=== PATIENT | female | born 2000 | race Caucasian/White ===

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

== ENCOUNTER 2020-08-26 19:49 | Emergency (ER) | payer OTHER, SELFPAY ==
--- OUTSIDE RECORDS SUMMARY | 2020-08-26 19:54 | XMS REPORT | Continuity of Care Document ---
:2000 Author Organization [facility] t Address [address] [place] [address] Dr. Sanchez [address] [place] [id number] Care Team Providers Name Role Phone Unavailable Unavailable Unavailable Problems This patient has no known problems. Allergies, Adverse Reactions, Alerts This patient has no known allergies or adverse reactions. Medications This patient has no known medications. Procedures This patient has no known procedures. Results This patient has no known results.
--- NOTE | 2020-08-26 20:32 | EDPHYS ---
Physician Documentation [facility] Name: Jessica North Age: 20 yrs Sex: Female : 2000 Arrival Date: 08/26/2020 Time: 20:07 Bed 19 Private MD: ED Physician Wilner Moeller HPI: 08/26 20:17 This 20 yrs old Female presents to ER via Unassigned with complaints of rn Vomiting. 20:17 This 20 yrs old Female presents to ER via Unassigned with complaints of rn Vomiting, chest pain. 20:17 The patient presents to the emergency department with nausea, vomiting. Onset: The rn symptoms/episode began/occurred 2 day(s) ago. Possible causes: unknown. The symptoms are aggravated by food , The symptoms are alleviated by nothing. Associated signs and symptoms: Pertinent negatives: abdominal pain, fever, GI bleeding. Severity of symptoms: At their worst the symptoms were moderate in the emergency department the symptoms have improved. The patient has not experienced similar symptoms in the past. The patient has not recently seen a physician. Reports nausea and vomited 1 time 2 days ago, began with upper abd pain after eating [employer], no longer abd pain or vomiting, now has burning and tightness in chest. No fever, NO trauma. No cough or sob. No known heart or lung problems. + hx of GERD, doesn't take daily medication. . Historical: - Allergies: 20:21 No Known Allergies; ak2 - Immunization history:: Adult Immunizations up to date. - Family history:: not pertinent. - Social history:: Smoking status: unknown. - Hospitalizations: : No recent hospitalization is reported. ROS: 20:17 Constitutional: Negative for fever, chills, and weight loss, Eyes: Negative for injury, rn pain, redness, and discharge, Neck: Negative for injury, pain, and swelling, Cardiovascular: Negative for palpitations, and edema, Respiratory: Negative for shortness of breath, cough, wheezing, and pleuritic chest pain, Abdomen/GI: Negative for abdominal pain, diarrhea, and constipation, Back: Negative for injury and pain, MS/Extremity: Negative for injury and deformity, Skin: Negative for injury, rash, and discoloration, Neuro: Negative for headache, weakness, numbness, tingling, and seizure. Exam: 20:17 Constitutional: This is a well developed, well nourished patient who is awake, alert, rn and in no acute distress. Head/Face: Normocephalic, atraumatic. Eyes: Periorbital areas with no swelling, redness, or edema. Cardiovascular: Regular rate and rhythm. No pulse deficits. Respiratory: No increased work of breathing, no retractions or nasal flaring. Abdomen/GI: soft, non-tender, neg valencia Skin: Warm, dry MS/ Extremity: Pulses equal, no cyanosis. Neuro: Awake and alert, GCS 15 Vital Signs: 20:18 BP 117 / 93; Pulse 93; Resp 18; Temp 98.3; Pulse Ox 100% ; Weight 68.04 kg; Height 5 ak2 ft. 7 in. (170.18 cm); 20:18 Body Mass Index 23.49 (68.04 kg, 170.18 cm) ak2 MDM: 20:09 Patient medically screened. rn 20:29 Differential diagnosis: gastritis, esophagitis, GERD. Data reviewed: vital signs, rn nurses notes, and as a result, I will discharge patient. Counseling: I had a detailed discussion with the patient and/or guardian regarding: the historical points, exam findings, and any diagnostic results supporting the discharge/admit diagnosis, the need for outpatient follow up, to return to the emergency department if symptoms worsen or persist or if there are any questions or concerns that arise at home. Medication response: GI Cocktail partially relieved the patient's pain. Response to treatment: the patient's symptoms have markedly improved after treatment, and as a result, I will discharge patient. Special discussion: I discussed with the patient/guardian in detail that at this point there is no indication for admission to the hospital. It is understood, however, that if the symptoms persist or worsen the patient needs to return immediately for re-evaluation. Based on the history and exam findings, there is no indication for further emergent testing or inpatient evaluation. I discussed with the patient/guardian the need to see the lead advisor for further evaluation of the symptoms. ED course: Recommend OTC antacids and maalox prn, if worsens, GI f/u or return here. Marked improvement with GI cocktail, normal vitals, and no abd tenderness on exam. Most likely gastritis/esophagitis. . Administered Medications: 20:18 Drug: GI Cocktail without - (Maalox Suspension 30 ml, Lidocaine Liquid 2 % 15 ak2 ml) Route: PO; Disposition Summary: 08/26/20 20:31 Discharge Ordered Location: Home rn Problem: new rn Symptoms: have improved rn Condition: Stable rn Diagnosis - Gastro-esophageal reflux disease with esophagitis rn Followup: rn - With: Private Physician - When: As needed - Reason: Recheck today's complaints, Re-evaluation by your physician Discharge Instructions: - Discharge Summary Sheet rn - Food Choices for Gastroesophageal Reflux Disease, Adult rn - Esophagitis rn - Gastroesophageal Reflux Disease, Adult rn Forms: - Medication Reconciliation Form rn - Thank You Letter rn - Antibiotic furnace operator - Prescription Opioid Use rn Signatures: Wilner Moeller MD MD rn Yaya Mahoney ak2
--- NOTE | 2020-08-26 20:32 | ER ---
Nurse's Notes [facility] Name: Jessica North Age: 20 yrs Sex: Female : 2000 Arrival Date: 08/26/2020 Time: 20:07 Bed 19 Private MD: Diagnosis: Gastro-esophageal reflux disease with esophagitis Presentation: 08/26 20:18 Chief complaint: Patient states: epigastric pain x2 days. Coronavirus screen: Client ak2 denies travel out of the [place] in the last 14 days. At this time, the client does not indicate any symptoms associated with coronavirus-19. Ebola Screen: Patient negative for fever greater than or equal to 101.5 degrees Fahrenheit, and additional compatible Ebola Virus Disease symptoms Patient denies exposure to infectious person. Patient denies travel to an Ebola-affected area in the 21 days before illness onset. No symptoms or risks identified at this time. Initial Sepsis Screen: Does the patient meet any 2 criteria? No. Patient's initial sepsis screen is negative. Does the patient have a suspected source of infection? No. Patient's initial sepsis screen is negative. Risk Assessment: Do you want to hurt yourself or someone else? Patient reports no desire to harm self or others. Onset of symptoms was August 24, 2020. 20:18 Method Of Arrival: Ambulatory ak2 20:18 Acuity: DANYEL 3 ak2 Triage Assessment: 20:21 General: Appears in no apparent distress. Behavior is calm, cooperative. Pain: ak2 Complains of pain in chest and abdomen. GI: Reports upper abdominal pain, epigastric pain. Historical: - Allergies: 20:21 No Known Allergies; ak2 - Immunization history:: Adult Immunizations up to date. - Family history:: not pertinent. - Social history:: Smoking status: unknown. - Hospitalizations: : No recent hospitalization is reported. Screenin:21 Abuse screen: Denies threats or abuse. Denies injuries from another. Nutritional ak2 screening: No deficits noted. Tuberculosis screening: No symptoms or risk factors identified. Fall Risk None identified. Assessment: 20:21 General: Appears in no apparent distress. GI: Abdomen is non-distended. ak2 Vital Signs: 20:18 BP 117 / 93; Pulse 93; Resp 18; Temp 98.3; Pulse Ox 100% ; Weight 68.04 kg; Height 5 ak2 ft. 7 in. (170.18 cm); 20:18 Body Mass Index 23.49 (68.04 kg, 170.18 cm) ak2 ED Course: 20:07 Patient arrived in ED. ag3 20:09 Wilner Moeller MD is Attending Physician. rn 20:18 Yaya Mahoney is Primary Nurse. ak2 20:21 Triage completed. ak2 20:21 Arm band placed on. ak2 20:21 Patient has correct armband on for positive identification. ak2 20:21 No provider procedures requiring assistance completed. Patient did not have IV access ak2 during this emergency room visit. Administered Medications: 20:18 Drug: GI Cocktail without - (Maalox Suspension 30 ml, Lidocaine Liquid 2 % 15 ak2 ml) Route: PO; Outcome: 20:31 Discharge ordered by . rn 20:37 Discharged to home ambulatory. ak2 20:37 Condition: good 20:37 Discharge instructions given to patient. 20:38 Patient left the ED. ak2 Signatures: Wilner Moeller MD MD rn Gomez, Alice ag3 Yaya Mahoney ak2
[2020-08-26] MEDS ORDERED: MAGNES/ALUMIN/SIMET 30ML UCUP ONE (20:37)
[2020-08-26] MEDS ORDERED: LIDOCAINE VISCOUS 2% SOLN 15 ML UDC ONE (20:37)
[2020-08-26 21:28] VITALS: BP 117/93; TEMP 98.3; O2SAT 100
== END 2020-08-26 20:38 | disposition home or self-care (01) ==
LOC: ER 19:49
DX: K21.00 Gastro-esophageal reflux disease with esophagitis, without bleeding (principal)
CPT/HCPCS: 99283

== ENCOUNTER 2021-09-06 01:57 | Emergency (ER) | payer SELFPAY ==
[2021-09-06 02:29] LABS: Urine Blood 2+ (Negative); Urine Glucose Negative (Negative); Urine Protein Negative (Negative)
[2021-09-06 03:23] LABS: Absolute Lymphocytes (CBC) 3.5 K/uL (0.7-4.9); Hematocrit 37.9 % (36.0-45.0); Lymphocytes % 27.7 % (15.3-44.8); MCV 83.9 fL (80-100); RBC Red Blood Cell Count 4.51 M/uL (3.86-4.86)
[2021-09-06 03:27] LABS: Albumin 4.3 g/dL (3.4-5.0); Bilirubin Total 0.3 mg/dL (0.2-1.0); Potassium 3.4 mmol/L (3.5-5.1); Protein, Total 7.6 g/dL (6.4-8.2)
[2021-09-06] MEDS ORDERED: ONDANSETRON 4 MG/2 ML VIAL ONE (03:32)
[2021-09-06] MEDS ORDERED: MORPHINE 2 MG/ML SYR ONE (03:32)
[2021-09-06] MEDS ORDERED: NA CHLORIDE 0.9% 1,000 ML ONE (03:32)
--- NOTE | 2021-09-06 05:00 | EDPHYS ---
Physician Documentation [facility] Name: Jessica North Age: 21 yrs Sex: Female : 2000 Arrival Date: 09/06/2021 Time: 02:00 Bed 26 Private MD: ED Physician Baldo Deleon HPI: 09/06 02:10 This 21 yrs old Female presents to ER via Ambulatory with complaints of Abdominal Pain. mh7 02:10 The patient presents with abdominal pain in the lower abdomen. Onset: The mh7 symptoms/episode began/occurred last night, at 21:00. The symptoms do not radiate. Associated signs and symptoms: Pertinent negatives: nausea, vomiting, and diarrhea, blood in stools, chest pain, constipation, diarrhea, dysuria, fever, headache, hematuria, nausea, palpitations, shortness of breath, vaginal discharge, vomiting, vomiting blood. The symptoms are described as intermittent, vague, waxing/waning. Modifying factors: The symptoms are alleviated by nothing, the symptoms are aggravated by nothing. Severity of pain: At its worst the pain was moderate last night, in the emergency department the pain has improved moderately. 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 - Social history:: Smoking status: Patient denies any tobacco usage or history of. Patient uses street drugs, marijuana. ROS: 02:10 Constitutional: Negative for fever, chills, and weight loss, Eyes: Negative for injury, mh7 pain, redness, and discharge, ENT: Negative for injury, pain, and discharge, Neck: Negative for injury, pain, and swelling, Cardiovascular: Negative for chest pain, palpitations, and edema, Respiratory: Negative for shortness of breath, cough, wheezing, and pleuritic chest pain, Back: Negative for injury and pain, : Negative for injury, bleeding, discharge, and swelling, MS/Extremity: Negative for injury and deformity, Skin: Negative for injury, rash, and discoloration, Neuro: Negative for headache, weakness, numbness, tingling, and seizure, Psych: Negative for depression, anxiety, suicide ideation, homicidal ideation, and hallucinations, Allergy/Immunology: Negative for hives, rash, and allergies, Endocrine: Negative for neck swelling, polydipsia, polyuria, polyphagia, and marked weight changes, Hematologic/Lymphatic: Negative for swollen nodes, abnormal bleeding, and unusual bruising. Exam: 02:10 Constitutional: This is a well developed, well nourished patient who is awake, alert, mh7 and in no acute distress. Head/Face: Normocephalic, atraumatic. Eyes: Pupils equal round and reactive to light, extra-ocular motions intact. Lids and lashes normal. Conjunctiva and sclera are non-icteric and not injected. Cornea within normal limits. Periorbital areas with no swelling, redness, or edema. Neck: Trachea midline, no thyromegaly or masses palpated, and no cervical lymphadenopathy. Supple, full range of motion without nuchal rigidity, or vertebral point tenderness. No Meningismus. Chest/axilla: Normal chest wall appearance and motion. Nontender with no deformity. No lesions are appreciated. Cardiovascular: Regular rate and rhythm with a normal S1 and S2. No gallops, murmurs, or rubs. Normal PMI, no JVD. No pulse deficits. Respiratory: Lungs have equal breath sounds bilaterally, clear to auscultation and percussion. No rales, rhonchi or wheezes noted. No increased work of breathing, no retractions or nasal flaring. Back: No spinal tenderness. No costovertebral tenderness. Full range of motion. Skin: Warm, dry with normal turgor. Normal color with no rashes, no lesions, and no evidence of cellulitis. MS/ Extremity: Pulses equal, no cyanosis. Neurovascular intact. Full, normal range of motion. Neuro: Awake and alert, GCS 15, oriented to person, place, time, and situation. Cranial nerves II-XII grossly intact. Motor strength 5/5 in all extremities. Sensory grossly intact. Cerebellar exam normal. Normal gait. Psych: Awake, alert, with orientation to person, place and time. Behavior, mood, and affect are within normal limits. 02:10 Abdomen/GI: Inspection: abdomen appears normal, Bowel sounds: normal, in all quadrants, Palpation: moderate abdominal tenderness, in the suprapubic area and right lower quadrant, mass, is not appreciated, rebound tenderness, is not appreciated, voluntary guarding, is not appreciated, involuntary guarding, is not appreciated, no appreciated organomegaly, Indicators: McBurney's point is not tender, Montaño's sign is negative, Rovsing's sign is negative, Obturator sign is negative, Psoas sign is negative, Liver: no appreciated palpable abnormalities, Hernia: not appreciated. Vital Signs: 02:12 BP 113 / 56; Pulse 93; Resp 17; Temp 98.4(O); Pulse Ox 100% on R/A; Weight 65.77 kg; [facility] Height 5 ft. 6 in. (167.64 cm); 05:04 BP 118 / 59; Pulse 88; Resp 17; Pulse Ox 99% on R/A; [facility] 02:12 Body Mass Index 23.40 (65.77 kg, 167.64 cm) [facility] MDM: 04:57 Differential diagnosis: appendicitis, bowel obstruction, diverticulitis, Ectopic mh7 , non-specific abd pain, Pyelonephritis, Ureterolithiasis, urinary tract infection. Data reviewed: vital signs, nurses notes, lab test result(s), CBC, electrolytes, urinalysis, UPT: negative radiologic studies, CT scan. Data interpreted: Pulse oximetry: on room air is 100 %. Interpretation: normal. Response to treatment: the patient's symptoms have resolved after treatment, the patient's blood pressure is in an acceptable range, mental status has returned to baseline, the patient no longer shows bradycardia, the patient is not short of breath, the patient is not tachycardic, the patient's pain is gone, the patient's temperature has normalized, patient is well hydrated. 04:59 Patient medically screened. [facility] 09/06 02:17 Order name: CBC with Diff; Complete Time: 03:30 [facility] 09/06 02:17 Order name: CMP; Complete Time: 03:30 [facility] 09/06 02:17 Order name: Lipase; Complete Time: 03:30 [facility] 09/06 02:29 Order name: Urine Dipstick-Ancillary; Complete Time: 03:16 EDMS 09/06 02:34 Order name: Urine --Ancillary (enter results); Complete Time: 03:16 mw2 09/06 02:17 Order name: IV Saline Lock; Complete Time: 03:01 [facility] 09/06 02:17 Order name: Labs collected and sent; Complete Time: 03:01 [facility] 09/06 02:17 Order name: Urine Dipstick-Ancillary (obtain specimen); Complete Time: 02:29 [facility] 09/06 02:17 Order name: Urine Test (obtain specimen); Complete Time: 02:56 [facility] 09/06 03:18 Order name: CT Abd/Pelvis - Without Contrast [facility] Administered Medications: 03:33 Drug: NS 0.9% 1000 ml Route: IV; Rate: 1000 ml; Site: right antecubital; sm5 05:06 Follow up: IV Status: Completed infusion; IV Intake: 1000ml 5 03:33 Drug: morphine 2 mg Route: IVP; Infused Over: 4 mins; Site: right antecubital; sm5 05:06 Follow up: Response: No adverse reaction [facility] 03:33 Drug: Zofran (Ondansetron) 4 mg Route: IVP; Site: right antecubital; sm5 05:05 Follow up: Response: No adverse reaction [facility] Disposition Summary: 09/06/21 04:59 Discharge Ordered Location: Home [facility] Problem: new [facility] Symptoms: have improved [facility] Condition: Stable [facility] Diagnosis - Lower abdominal pain, unspecified [facility] Followup: [facility] - With: Private Physician - When: 1 - 2 days - Reason: Worsening of condition, Recheck today's complaints, Continuance of care, Re-evaluation by your physician Discharge Instructions: - Discharge Summary Sheet [facility] - Abdominal Pain, Adult, [id number] [facility] Forms: - Medication Reconciliation Form [facility] - Thank You Letter [facility] - Antibiotic Education [facility] - Prescription Opioid Use [facility] Prescriptions: - dicyclomine 20 mg Oral Tablet - take 1 tablet by ORAL route 4 times per day As needed; 20 tablet; Refills: 0, 7 Product Selection Permitted Signatures: Dispatcher [employer] EDMS Baldo Deleon MD MD [facility] Jessica Cruz RN RN 5 Corrections: (The following items were deleted from the chart) 02:15 02:13 PMHx: Unable to Obtain; sm5 sm5 03:04 02:53 Urine Dipstick-Ancillary ordered. EDMS EDMS
--- NOTE | 2021-09-06 05:00 | ER ---
Nurse's Notes [facility] Name: Jessica North Age: 21 yrs Sex: Female : 2000 Arrival Date: 09/06/2021 Time: 02:00 Bed 26 Private MD: Diagnosis: Lower abdominal pain, unspecified Presentation: 09/06 02:12 Chief complaint: Patient states: lower abd pain starting around 10pm, denies N/V/D. sm5 Coronavirus screen: Vaccine status: Patient reports receiving the 1st dose of the Covid vaccine. Ebola Screen: No symptoms or risks identified at this time. Initial Sepsis Screen: Does the patient meet any 2 criteria? No. Patient's initial sepsis screen is negative. Does the patient have a suspected source of infection? Yes: Acute abdominal pain. Risk Assessment: Do you want to hurt yourself or someone else? Patient reports no desire to harm self or others. Onset of symptoms was September 05, 2021. 02:12 Method Of Arrival: Ambulatory 5 02:12 Acuity: DANYEL 3 sm5 Triage Assessment: 02:15 General: Appears in no apparent distress. Behavior is cooperative. Pain: Complains of sm5 pain in suprapubic area, right lower quadrant and left lower quadrant. Neuro: Level of Consciousness is awake, alert, obeys commands, Oriented to person, place, time, situation. Cardiovascular: Capillary refill < 3 seconds Patient's skin is warm and dry. Respiratory: Airway is patent Trachea midline Respiratory effort is even, unlabored. GI: Abdomen is flat, non-distended, Patient currently denies diarrhea, nausea, vomiting. PC TECH: 02:16 LMP 09/01/2021 sm5 Historical: - Allergies: 02:13 No Known Allergies; sm5 - PMHx: 02:13 None; sm5 - Immunization history:: Client reports receiving the 1st dose of the Covid vaccine. - Social history:: Smoking status: Patient denies any tobacco usage or history of. Patient uses street drugs, marijuana. Screenin:16 Abuse screen: Denies threats or abuse. Denies injuries from another. Nutritional sm5 screening: No deficits noted. Tuberculosis screening: No symptoms or risk factors identified. Fall Risk None identified. Assessment: 02:18 GI: Bowel sounds present X 4 quads. Abd is soft. sm5 03:15 Reassessment: No changes from previously documented assessment. Patient and/or family 5 updated on plan of care and expected duration. Pain level reassessed. 04:30 Reassessment: No changes from previously documented assessment. 5 Vital Signs: 02:12 BP 113 / 56; Pulse 93; Resp 17; Temp 98.4(O); Pulse Ox 100% on R/A; Weight 65.77 kg; sm5 Height 5 ft. 6 in. (167.64 cm); 05:04 BP 118 / 59; Pulse 88; Resp 17; Pulse Ox 99% on R/A; sm5 02:12 Body Mass Index 23.40 (65.77 kg, 167.64 cm) 5 ED Course: 02:00 Patient arrived in ED. bp1 02:08 Baldo Deleon MD is Attending Physician. mh7 02:09 Jessica Cruz RN is Primary Nurse. sm5 02:13 Triage completed. sm5 02:16 Arm band placed on right wrist. sm5 02:18 Patient has correct armband on for positive identification. Bed in low position. Call 5 light in reach. Side rails up X2. 02:55 Initial lab(s) drawn, by me, sent to lab. Inserted saline lock: 20 gauge in right bb antecubital area, using aseptic technique. Blood collected. 03:54 CT Abd/Pelvis - Without Contrast In Process Unspecified. EDMS 05:05 No provider procedures requiring assistance completed. IV discontinued, intact, sm5 bleeding controlled, No redness/swelling at site. Pressure dressing applied. Administered Medications: 03:33 Drug: NS 0.9% 1000 ml Route: IV; Rate: 1000 ml; Site: right antecubital; sm5 05:06 Follow up: IV Status: Completed infusion; IV Intake: 1000ml 5 03:33 Drug: morphine 2 mg Route: IVP; Infused Over: 4 mins; Site: right antecubital; sm5 05:06 Follow up: Response: No adverse reaction 5 03:33 Drug: Zofran (Ondansetron) 4 mg Route: IVP; Site: right antecubital; sm5 05:05 Follow up: Response: No adverse reaction 5 Medication: 05:05 VIS not applicable for this client. sm5 Intake: 05:06 IV: 1000ml; Total: 1000ml. 5 Outcome: 04:59 Discharge ordered by . yvonne 05:05 Discharged to home ambulatory, with friend. [facility] 05:05 Condition: stable 05:05 Discharge instructions given to patient, friend, Instructed on discharge instructions, follow up and referral plans. medication usage, Demonstrated understanding of instructions, follow-up care, medications, Prescriptions given X 1. 05:06 Patient left the ED. [facility] Signatures: Dispatcher [employer] EDMS Mirta Butt, RN RN Ute Baum Maurice, MD MD mh7 Mazur, Sarah, RN RN 5 Corrections: (The following items were deleted from the chart) 02:15 02:13 PMHx: Unable to Obtain; [place] [id number]
[2021-09-06 05:14] VITALS: TEMP 98.4
[2021-09-06 05:17] VITALS: BP 118/59; O2SAT 99
--- NOTE | 2021-09-06 13:27 | RAD REPORT ---
EXAM DESCRIPTION: CT - Abdomen Pelvis Wo Contrast - 09/06/2021 6:38 am CLINICAL HISTORY: The patient is 21 years old and is Female; RLQ abdominal pain TECHNIQUE: Axial computed tomography images of the abdomen and pelvis without intravenous contrast. Sagittal and coronal reformatted images were created and reviewed. This CT exam was performed usi ng one or more of the following dose reduction techniques: automated exposure control, adjustment o f the mA and/or kV according to patient size, and/or use of iterative reconstruction technique. COMPARISON: No relevant prior studies available. FINDINGS: Lung bases: Unremarkable. No mass. No consolidation. ABDOMEN: Liver: Unremarkable. Gallbladder and bile ducts: Unremarkable. No calcified stones. No ductal dilation. Pancreas: Unremarkable. No ductal dilation. Spleen: Unremarkable. No splenomegaly. Adrenals: Unremarkable. No mass. Kidneys and ureters: Unremarkable. No obstructing stones. No hydronephrosis. Stomach and bowel: Unremarkable. No obstruction. No mucosal thickening. PELVIS: Appendix: The appendix is normal. Bladder: Unremarkable. No stones. Reproductive: Unremarkable as visualized. ABDOMEN and PELVIS: Intraperitoneal space: Unremarkable. No free air. No significant fluid collection. Bones/joints: No acute fracture. No dislocation. Soft tissues: Unremarkable. Vasculature: Unremarkable. No abdominal aortic aneurysm. Lymph nodes: Unremarkable. No enlarged lymph nodes. IMPRESSION: 1. No acute finding in the abdomen/pelvis. 2. The appendix is normal. Electronically signed by: Junito Meek MD 09/06/2021 4:15 AM CDT Due to temporary technical issues with the PACS/Fluency reporting system, reports are being signed by the in house radiologists without review as a courtesy to insure prompt reporting. The interpreting radiologist is fully responsible for the content of the report.
== END 2021-09-06 05:06 | disposition home or self-care (01) ==
LOC: ER 01:57
DX: R10.30 Lower abdominal pain, unspecified (principal)
CPT/HCPCS: 36415; 74176; 80053; 81003; 81025; 83690; 85025; J2270; J2405; J7030

== ENCOUNTER 2021-09-18 18:31 | Emergency (ER) | payer SELFPAY ==
--- OUTSIDE RECORDS SUMMARY | 2021-09-18 18:34 | XMS REPORT | Continuity of Care Document ---
:2000 Author Organization [facility] t Address [facility]ly [facility] [place] [address] Care Team Providers Name Role Phone PCP, DOES NOT HAVE A Primary Care Physician Unavailable EDWARD Admitting Clinician Unavailable Problems This patient has no known problems. Allergies, Adverse Reactions, Alerts Allergy Allergy Status Severity Reaction(s) Onset Inactive Treating Comm ents Source Name Type Date Date Clinician NO KNOWN Drug Active [facility] ALLERGIE Class [facility] Medications This patient has no known medications. Procedures This patient has no known procedures. Encounters Start End Encounter Admission Attending Care Care Encounter Source Date/Time Date/Time Type Type Clinicians Facility Department ID 2019-02-28 2019-02-28 Emergency X [facility] ERT [id number] Univers 20:09:54 21:56:00 [facility] Results This patient has no known results.
--- NOTE | 2021-09-18 19:52 | ER ---
Nurse's Notes [facility] Name: Jessica North Age: 21 yrs Sex: Female : 2000 Arrival Date: 09/18/2021 Time: 18:33 Bed DIS5 Private MD: Diagnosis: Bitten by cat;Puncture wound without foreign body of right wrist Presentation: 09/18 19:25 Chief complaint: Patient states: Scratched by own cat this morning, small superficial lp1 puncture pratt to right wrist and forearm, reports she cleaned with antibacterial soap and peroxide; reports cat is not up to date on vaccinations. Coronavirus screen: At this time, the client does not indicate any symptoms associated with coronavirus-19. Ebola Screen: No symptoms or risks identified at this time. Initial Sepsis Screen: Does the patient meet any 2 criteria? No. Patient's initial sepsis screen is negative. Does the patient have a suspected source of infection? No. Patient's initial sepsis screen is negative. Risk Assessment: Do you want to hurt yourself or someone else? Patient reports no desire to harm self or others. Onset of symptoms was September 18, 2021. 19:25 Method Of Arrival: Ambulatory lp1 19:25 Acuity: DANYEL 4 lp1 VENEER MARKER: 19:29 LMP 09/04/2021 lp1 Historical: - Allergies: 19:29 No Known Allergies; lp1 - Home Meds: 19:29 Pepcid Oral [Active]; lp1 - PMHx: 19:29 gerd; lp1 - PSHx: 19:29 None; lp1 - Immunization history:: Adult Immunizations up to date. - Social history:: Smoking status: Patient denies any tobacco usage or history of. Patient uses street drugs, marijuana. Screenin:38 Abuse screen: Denies threats or abuse. Denies injuries from another. Nutritional lp1 screening: No deficits noted. Tuberculosis screening: No symptoms or risk factors identified. Fall Risk None identified. Assessment: 19:37 General: Appears in no apparent distress. Behavior is calm, cooperative. Pain: lp1 Complains of pain in right wrist and palmar aspect of right forearm. Neuro: Level of Consciousness is awake, alert, obeys commands. Cardiovascular: Patient's skin is warm and dry. Respiratory: Respiratory effort is even, unlabored. GI: No signs and/or symptoms were reported involving the gastrointestinal system. : No signs and/or symptoms were reported regarding the genitourinary system. EENT: No signs and/or symptoms were reported regarding the EENT system. Derm: Skin is pink, warm \T\ dry. Wound noted Other: Small puncture pratt to right wrist, forearm; no bleeding noted. Musculoskeletal: Circulation, motion, and sensation intact. Range of motion: intact in all extremities. Vital Signs: 19:25 BP 124 / 72; Pulse 75; Resp 16; Temp 99(O); Pulse Ox 99% on R/A; Weight 67.13 kg (R); lp1 Height 5 ft. 7 in. (170.18 cm); 19:25 Body Mass Index 23.18 (67.13 kg, 170.18 cm) lp1 ED Course: 18:33 Patient arrived in ED. mr 18:38 Maxwell June NP is PHCP. pm1 18:38 Mayo Baltazar MD is Attending Physician. pm1 19:25 Ne Cobos RN is Primary Nurse. lp1 19:25 Arm band placed on left wrist. lp1 19:29 Triage completed. lp1 19:38 Patient has correct armband on for positive identification. lp1 19:38 No provider procedures requiring assistance completed. Patient did not have IV access lp1 during this emergency room visit. 19:50 Brando Chavis MD is Referral Physician. pm1 20:08 Wrist Right 3 View XRAY In Process Unspecified. EDMS Administered Medications: 19:52 Drug: Tetanus-Diphtheria Toxoid Adult 0.5 ml {Staff Attorney: Ajaline. Exp: ld1 05/20/2023. Lot #: [id number]. } Route: IM; Site: right deltoid; 19:53 Follow up: Response: (VIS) Vaccine information sheet provided today. Questions and/or ld1 concerns addressed. VIS edition date: Sep 30, 2020.; No adverse reaction Medication: 19:54 Vaccine Information Statement (VIS) provided today. Questions and/or concerns ld1 addressed. VIS edition date: September 18, 2021. Outcome: 19:51 Discharge ordered by . pm1 19:53 Discharged to home ambulatory, with family. ld1 19:53 Condition: stable 19:53 Discharge instructions given to patient, Instructed on discharge instructions, follow up and referral plans. Demonstrated understanding of instructions, follow-up care. 19:55 Patient left the ED. ld1 Signatures: Dispatcher [employer] ZION Xu Melinda Ne Weinberg, RN RN lp1 Maxwell June, NIKE ATHLETE NIKE ATHLETE pm1 Venessa Pace RN RN ld1 Corrections: (The following items were deleted from the chart) 19:37 19:25 BP 124 / 72; Pulse 75bpm; Resp 16bpm; 67.13 kg Reported; Height 5 ft. 7 in.; BMI: lp1 23.1; lp1
--- NOTE | 2021-09-18 19:52 | EDPHYS ---
Physician Documentation [facility] Name: Jessica North Age: 21 yrs Sex: Female : 2000 Arrival Date: 09/18/2021 Time: 18:33 Bed DIS5 Private MD: ED Physician Mayo Baltazar HPI: 09/18 19:38 This 21 yrs old Female presents to ER via Ambulatory with complaints of Cat Bite. pm1 19:38 The patient or guardian reports a bite, cat. The complaints affect the right wrist pm1 diffusely. Context: The problem was sustained at home, resulted from taking her cat out, when it got stuck. Onset: The symptoms/episode began/occurred today. Modifying factors: The symptoms are alleviated by nothing, the symptoms are aggravated by nothing. Associated signs and symptoms: The patient has no apparent associated signs or symptoms. Compartment Syndrome negative for numbness, pain, tingling. The patient has not experienced similar symptoms in the past. The patient has not recently seen a physician. HEAD CAGER: 19:29 LMP 09/04/2021 lp1 Historical: - Allergies: 19:29 No Known Allergies; lp1 - Home Meds: 19:29 Pepcid Oral [Active]; lp1 - PMHx: 19:29 gerd; lp1 - PSHx: 19:29 None; lp1 - Immunization history:: Adult Immunizations up to date. - Social history:: Smoking status: Patient denies any tobacco usage or history of. Patient uses street drugs, marijuana. ROS: 19:38 Constitutional: Negative for fever, chills, and weight loss, Cardiovascular: Negative pm1 for chest pain, palpitations, and edema, Respiratory: Negative for shortness of breath, cough, wheezing, and pleuritic chest pain. 19:38 Skin: Negative for injury, rash, and discoloration, Neuro: Negative for headache, weakness, numbness, tingling, and seizure. 19:38 MS/extremity: Positive for bite, of the right wrist, Negative for decreased range of motion, deformity. 19:38 All other systems are negative. Exam: 19:38 Skin: Appearance: normal except for affected area, injury, puncture(s), that are pm1 superficial, of the right wrist medial aspect 4 superficial puncture wounds. 19:38 Constitutional: This is a well developed, well nourished patient who is awake, alert, and in no acute distress. Head/Face: Normocephalic, atraumatic. 19:38 Back: No spinal tenderness. No costovertebral tenderness. Full range of motion. 19:38 Cardiovascular: Exam negative for acute changes, Rate: normal, Rhythm: regular, Pulses: no pulse deficits are appreciated. 19:38 Respiratory: Exam negative for acute changes, respiratory distress, shortness of breath. 19:38 Abdomen/GI: Exam negative for acute changes, Inspection: abdomen appears normal, Palpation: abdomen is soft and non-tender, in all quadrants. 19:38 Neuro: Exam negative for acute changes, Orientation: is normal, Mentation: is normal, Motor: is normal, moves all fours. Vital Signs: 19:25 BP 124 / 72; Pulse 75; Resp 16; Temp 99(O); Pulse Ox 99% on R/A; Weight 67.13 kg (R); lp1 Height 5 ft. 7 in. (170.18 cm); 19:25 Body Mass Index 23.18 (67.13 kg, 170.18 cm) lp1 MDM: 19:32 Patient medically screened. pm1 19:50 Data reviewed: vital signs. Data interpreted: Pulse oximetry: on room air is 99 %. pm1 Interpretation: normal. Counseling: I had a detailed discussion with the patient and/or guardian regarding: the historical points, exam findings, and any diagnostic results supporting the discharge/admit diagnosis, radiology results, the need for outpatient follow up, a hand specialist, to return to the emergency department if symptoms worsen or persist or if there are any questions or concerns that arise at home. 09/18 19:36 Order name: Wrist Right 3 View XRAY pm1 Administered Medications: 19:52 Drug: Tetanus-Diphtheria Toxoid Adult 0.5 ml {Content Director: barcoo. Exp: ld1 05/20/2023. Lot #: [id number]. } Route: IM; Site: right deltoid; 19:53 Follow up: Response: (VIS) Vaccine information sheet provided today. Questions and/or ld1 concerns addressed. VIS edition date: Sep 30, 2020.; No adverse reaction Disposition Summary: 09/18/21 19:51 Discharge Ordered Location: Home pm1 Problem: new pm1 Symptoms: have improved pm1 Condition: Stable pm1 Diagnosis - Bitten by cat pm1 - Puncture wound without foreign body of right wrist pm1 Followup: pm1 - With: Emergency Department - When: As needed - Reason: Worsening of condition Followup: pm1 - With: Brando Chavis MD - When: 2 - 3 days - Reason: Recheck today's complaints, Continuance of care, Re-evaluation by your physician Discharge Instructions: - Discharge Summary Sheet pm1 - Puncture Wound pm1 Forms: - Medication Reconciliation Form pm1 - Thank You Letter pm1 - Antibiotic Education pm1 - Prescription Opioid Use pm1 Prescriptions: - Augmentin 875-125 mg Oral Tablet - take 1 tablet by ORAL route every 12 hours for 10 days; 20 tablet; Refills: 0, pm1 Product Selection Permitted Signatures: Dispatcher [employer] EDMS Ne Cobos, RN RN lp1 Maxwell June, ROBERTA ALPINE PATROLLER pm1 Venessa Pace, RN RN ld1
[2021-09-18] MEDS ORDERED: TETANUS & DIPHTHERIA TOX,ADULT 0.5 ML VIAL ONE (19:59)
--- NOTE | 2021-09-18 20:21 | RAD REPORT ---
EXAM DESCRIPTION: RAD - Wrist Right 3 View - 09/18/2021 8:06 pm CLINICAL HISTORY: ANIMAL BITE, site not specified COMPARISON: No comparisons FINDINGS: No fracture is identified. There is no dislocation or periosteal reaction noted. No acute bone or joint finding identifiable. No air or foreign body seen in the soft tissues. IMPRESSION: No right wrist bone or joint abnormality. No air or foreign body in the soft tissues.
[2021-09-18 20:24] VITALS: BP 124/72; TEMP 99; O2SAT 99
== END 2021-09-18 19:55 | disposition home or self-care (01) ==
LOC: ER 18:31
DX: S61.531A Puncture wound without foreign body of right wrist, initial encounter (principal); W55.01XA Bitten by cat, initial encounter; Z23 Encounter for immunization
CPT/HCPCS: 90471; 90714; 99283

== ENCOUNTER 2021-09-28 23:18 | Emergency (ER) | payer SELFPAY ==
--- OUTSIDE RECORDS SUMMARY | 2021-09-28 23:20 | XMS REPORT | Continuity of Care Document ---
:[address] [facility] t Address [facility] [address] [place] [address] Care Team Providers Name Role Phone PCP, PATIENT DOES NOT HAVE A Primary Care Physician Unavaila TRISTEN Lyons Admitting Clinician Unavailable Problems This patient has no known problems. Allergies, Adverse Reactions, Alerts Allergy Allergy Status Severity Reaction(s) Onset Inactive Treating Comm ents Source Name Type Date Date Clinician NO KNOWN Drug Active Univers ALLERGIE Class [facility] Medications This patient has no known medications. Procedures This patient has no known procedures. Encounters Start End Encounter Admission Attending Care Care Encounter Source Date/Time Date/Time Type Type Clinicians Facility Department ID 2019-02-28 2019-02-28 Emergency X [facility] ERT [id number] Univers 20:09:54 21:56:00 [facility] Results This patient has no known results.
--- NOTE | 2021-09-29 00:24 | ER ---
Nurse's Notes [facility] Name: Jessica North Age: 21 yrs Sex: Female : 2000 Arrival Date: 09/28/2021 Time: 23:22 Bed 5 Private MD: Diagnosis: Pain in left upper arm;Chest pain, unspecified;Gastro-esophageal reflux disease without esophagitis Presentation: 09/28 23:50 Chief complaint: Patient states: "My heart started feeling really uncomfortable and my vc1 back started hurting in a spot that never hurts. Then yesterday I became really SOB and lost my vision for a second.". Coronavirus screen: Vaccine status: Patient reports receiving the 1st dose of the Covid vaccine. Nubity At this time, the client does not indicate any symptoms associated with coronavirus-19. Ebola Screen: No symptoms or risks identified at this time. Initial Sepsis Screen: Does the patient meet any 2 criteria? No. Patient's initial sepsis screen is negative. Does the patient have a suspected source of infection? No. Patient's initial sepsis screen is negative. Risk Assessment: Do you want to hurt yourself or someone else? Patient reports no desire to harm self or others. Onset of symptoms is unknown. 23:50 Method Of Arrival: Ambulatory vc1 23:50 Acuity: DANYEL 3 vc1 Triage Assessment: 23:53 General: Appears in no apparent distress. uncomfortable, Behavior is calm, cooperative, vc1 appropriate for age. Pain: Complains of pain in anterior aspect of left upper chest Pain does not radiate. Pain currently is 1 out of 10 on a pain scale. at worst was 5 out of 10 on a pain scale. Quality of pain is described as Pain began Is intermittent. EENT: No deficits noted. Neuro: Level of Consciousness is awake, alert, obeys commands, Oriented to person, place, time, situation, Appropriate for age. Cardiovascular: Reports chest pain. Respiratory: Airway is patent Respiratory effort is even, unlabored, Respiratory pattern is regular, symmetrical. GI: Reports indigestion. : No deficits noted. Derm: No deficits noted. Musculoskeletal: Circulation, motion, and sensation intact. Range of motion: intact in all extremities. POWER DISTRIBUTOR: 23:52 LMP N/A - last month sometime vc1 Historical: - Allergies: 23:52 No Known Allergies; vc1 - Home Meds: 23:52 Pepcid Oral [Active]; vc1 - PMHx: 23:52 GERD; vc1 - PSHx: 23:52 None; vc1 - Immunization history:: Adult Immunizations up to date, Client reports receiving the 1st dose of the Covid vaccine. - Social history:: Smoking status: Patient denies any tobacco usage or history of. - Family history:: not pertinent. - Hospitalizations: : No recent hospitalization is reported. Screenin:53 Abuse screen: Denies threats or abuse. Nutritional screening: No deficits noted. vc1 Tuberculosis screening: No symptoms or risk factors identified. Fall Risk None identified. Vital Signs: 23:50 BP 114 / 86; Pulse 85; Resp 16; Temp 98.6; Pulse Ox 100% ; Weight 66.68 kg; Height 5 vc1 ft. 6 in. (167.64 cm); Pain 1/10; 23:50 Body Mass Index 23.73 (66.68 kg, 167.64 cm) vc1 ED Course: 23:22 Patient arrived in ED. ja2 23:25 Wilner Moeller MD is Attending Physician. rn 23:52 Triage completed. vc1 23:53 Arm band placed on left wrist. vc1 09/29 00:07 XRAY Chest (1 view) In Process Unspecified. EDMS 00:40 Adore Bui, DESIREE is Primary Nurse. ll3 00:40 Patient has correct armband on for positive identification. Bed in low position. Call ll3 light in reach. Side rails up X 1. 00:40 No provider procedures requiring assistance completed. Patient did not have IV access ll3 during this emergency room visit. Administered Medications: 00:40 Drug: GI Cocktail without - (Maalox Suspension 30 ml, Lidocaine Liquid 2 % 15 ll3 ml) Route: PO; 00:40 Follow up: Response: No adverse reaction ll3 Medication: 09/28 23:53 VIS not applicable for this client. vc1 Outcome: 09/29 00:23 Discharge ordered by . rn 00:40 Discharged to home ambulatory, with crutches. ll3 00:40 Condition: stable 00:40 Discharge instructions given to patient, family, Instructed on discharge instructions, follow up and referral plans. Demonstrated understanding of instructions, follow-up care. 00:40 Patient left the ED. ll3 Signatures: Dispatcher [employer] Wilner Nicholson MD MD rn Felicia Espitia Lynsea, RN RN ll3 Winsome Sutherland RN RN vc1
--- NOTE | 2021-09-29 00:24 | EDPHYS ---
Physician Documentation [facility] Name: Jessica North Age: 21 yrs Sex: Female : 2000 Arrival Date: 09/28/2021 Time: 23:22 Bed 5 Private MD: ED Physician Wilner Moeller HPI: 09/29 00:10 This 21 yrs old Female presents to ER via Ambulatory with complaints of chest pain, arm rn pain. 00:10 The patient or guardian complains of pain, that is acute. The complaints affect the rn anterior aspect of left shoulder. Onset: The symptoms/episode began/occurred today. Treatment prior to arrival includes: no previous treatment. Modifying factors: The symptoms are alleviated by remaining still, the symptoms are aggravated by movement. Associated signs and symptoms: Pertinent negatives: fever, swelling, warmth, weakness. Severity of symptoms: At their worst the symptoms were mild, in the emergency department the symptoms have improved. The patient has not experienced similar symptoms in the past. The patient has not recently seen a physician. Pt reports "years" of intermittent left sided chest pain, not getting better or worse, happens almost daily and lasts for a few minutes. Evaluated before for chest pain, without acute findings. No trauma. Does take daily antacid. Today felt left shoulder pain that is worse with movement and rotation. Came in for evaluation to make sure left shoulder pain did not have anything to do with chest pain.. PRESCRIPTION CLERK: 09/28 23:52 LMP N/A - last month sometime vc1 Historical: - Allergies: 23:52 No Known Allergies; vc1 - Home Meds: 23:52 Pepcid Oral [Active]; vc1 - PMHx: 23:52 GERD; vc1 - PSHx: 23:52 None; vc1 - Immunization history:: Adult Immunizations up to date, Client reports receiving the 1st dose of the Covid vaccine. - Social history:: Smoking status: Patient denies any tobacco usage or history of. - Family history:: not pertinent. - Hospitalizations: : No recent hospitalization is reported. ROS: 09/29 00:10 Constitutional: Negative for fever, chills, and weight loss, Eyes: Negative for injury, rn pain, redness, and discharge, Cardiovascular: Negative for edema Respiratory: Negative for shortness of breath, cough, wheezing, and pleuritic chest pain, Abdomen/GI: Negative for abdominal pain, nausea, vomiting, diarrhea, and constipation, Back: Negative for injury and pain, MS/Extremity: Negative for injury and deformity, Skin: Negative for injury, rash, and discoloration, Neuro: Negative for headache, weakness, numbness, tingling, and seizure. Exam: 00:10 Constitutional: This is a well developed, well nourished patient who is awake, alert, rn and in no acute distress. Head/Face: Normocephalic, atraumatic. Cardiovascular: Regular rate and rhythm. No pulse deficits. Respiratory: No increased work of breathing, no retractions or nasal flaring. Abdomen/GI: Soft, non-tender Skin: Warm, dry MS/ Extremity: Pulses equal, no cyanosis. Neurovascular intact. Full, normal range of motion. Equal circumference. Mild pain with rotation of left shoulder and elevation above horizontal. Neuro: Awake and alert, GCS 15 00:19 ECG was reviewed by the Attending Physician. rn Vital Signs: 09/28 23:50 BP 114 / 86; Pulse 85; Resp 16; Temp 98.6; Pulse Ox 100% ; Weight 66.68 kg; Height 5 vc1 ft. 6 in. (167.64 cm); Pain 1/10; 23:50 Body Mass Index 23.73 (66.68 kg, 167.64 cm) vc1 MDM: 23:25 Patient medically screened. rn 09/29 00:22 Differential diagnosis: tendonitis, GERD, pleurisy, MVP. Data reviewed: vital signs, rn nurses notes, EKG, radiologic studies, plain films, and as a result, I will discharge patient. Counseling: I had a detailed discussion with the patient and/or guardian regarding: the historical points, exam findings, and any diagnostic results supporting the discharge/admit diagnosis, radiology results, the need for outpatient follow up, to return to the emergency department if symptoms worsen or persist or if there are any questions or concerns that arise at home. Special discussion: I discussed with the patient/guardian in detail that at this point there is no indication for admission to the hospital. It is understood, however, that if the symptoms persist or worsen the patient needs to return immediately for re-evaluation. Based on the history and exam findings, there is no indication for further emergent testing or inpatient evaluation. I discussed with the patient/guardian the need to see the director service for further evaluation of the symptoms. I discussed with the patient/guardian the need to see the design drafter chief for further evaluation of the symptoms. 09/28 23:50 Order name: XRAY Chest (1 view) rn 09/28 23:50 Order name: EKG; Complete Time: 23:50 rn 09/28 23:50 Order name: EKG - Nurse/Tech; Complete Time: 00:33 rn EC:19 Rate is 83 beats/min. Rhythm is regular. QRS Omega is Normal. NV interval is normal. QRS rn interval is normal. QT interval is normal. No Q waves. T waves are Normal. No ST changes noted. Clinical impression: Normal ECG. Interpreted by me. Reviewed by me. Administered Medications: 00:40 Drug: GI Cocktail without - (Maalox Suspension 30 ml, Lidocaine Liquid 2 % 15 ll3 ml) Route: PO; 00:40 Follow up: Response: No adverse reaction ll3 Disposition Summary: 09/29/21 00:23 Discharge Ordered Location: Home rn Problem: new rn Symptoms: have improved rn Condition: Stable rn Diagnosis - Pain in left upper arm rn - Chest pain, unspecified rn - Gastro-esophageal reflux disease without esophagitis rn Followup: rn - With: Private Physician - When: As needed - Reason: Recheck today's complaints, Re-evaluation by your physician Discharge Instructions: - Discharge Summary Sheet rn - Nonspecific Chest Pain, Adult rn - Food Choices for Gastroesophageal Reflux Disease, Adult rn Forms: - Medication Reconciliation Form rn - Thank You Letter rn - Antibiotic furnace mechanic - Prescription Opioid Use rn Signatures: Dispatcher [employer] EDWilner Nielsen MD MD rn Loubet, Lynsea RN RN ll3 Winsome Sutherland RN RN vc1
[2021-09-29] MEDS ORDERED: MAGNES/ALUMIN/SIMET 30ML UCUP ONE (00:41)
[2021-09-29] MEDS ORDERED: LIDOCAINE VISCOUS 2% SOLN 15 ML UDC ONE (00:41)
[2021-09-29 02:57] VITALS: BP 114/86; TEMP 98.6; O2SAT 100
--- NOTE | 2021-09-29 11:15 | RAD REPORT ---
EXAM DESCRIPTION: Chest Single View CLINICAL HISTORY: 1 years Female, CHEST PAIN COMPARISON: None FINDINGS: No focal lung consolidation. No pleural effusion. No pneumothorax. Cardiomediastinal silhouette is within normal limits. No acute osseous abnormality. IMPRESSION: No acute cardiopulmonary disease. Electronically signed by: Winston Vallejo DO 09/29/2021 12:19 AM CDT Due to temporary technical issues with the PACS/Fluency reporting system, reports are being signed by the in house radiologists without review as a courtesy to insure prompt reporting. The interpreting radiologist is fully responsible for the content of the report.
--- NOTE | 2021-09-29 15:08 | EKG ---
Test Date: 2021-09-29 Test Time: 00:04:59 Termite Exterminator: PILI MEASUREMENT RESULTS: Intervals: Rate: 83 TX: 148 QRSD: 90 QT: 384 QTc: 451 [place]: P: 63 TX: 148 QRS: 76 T: 65 INTERPRETIVE STATEMENTS: Normal sinus rhythm with sinus arrhythmia Normal ECG No previous ECG available for comparison Electronically Signed On 09-29-21 15:07:25 CDT by Gilmar Real
== END 2021-09-29 00:40 | disposition home or self-care (01) ==
LOC: ER 23:18
DX: R07.89 Other chest pain (principal); M25.512 Pain in left shoulder; K21.9 Gastro-esophageal reflux disease without esophagitis
CPT/HCPCS: 71045; 93005; 99283

== ENCOUNTER 2022-01-01 19:02 | Emergency (ER) | payer SELFPAY ==
--- OUTSIDE RECORDS SUMMARY | 2022-01-01 19:06 | XMS REPORT | Continuity of Care Document ---
:2000 Author Organization [facility] t Address [address] [id number] Care Team Providers Name Role Phone PCP, PATIENT DOES NOT HAVE A Primary Care Physician Unavailsusanne Torres COMIC WRITERMegan Attending Clinician MEGAN TORRES Attending Clinician Unavailable MEGAN TORRES Admitting Clinician Unavailable TRISTEN LEON Admitting Clinician Unavailable Problems Condition Condition Condition Status Onset Resolution Last Treating Co mments Source Name Details Category Date Date Treatment Clinician Date No known No known Disease Unive rs active active ity of problems problems [facility] Allergies, Adverse Reactions, Alerts Allergy Allergy Status Severity Reaction(s) Onset Inactive Treating Comm ents Source Name Type Date Date Clinician NO KNOWN Drug Active Univers ALLERGIE Class ity of S [facility] Social History Social Habit Start Date Stop Date Quantity Comments Source Exposure to 2021-10-02 2021-10-12 Not sure [facility] SARS-CoV-2 (event) 00:00:00 14:20:00 Medica l Branch [facility] 2000 [facility] 00:00:00 00:00:00 Medical Branch Smoking Status Start Date Stop Date Source Tobacco smoking consumption Univ [facility] Medical unknown Branch Medications Ordered Filled Start Stop Current Ordering Indication Dosage Frequency Signature Comments Components Source Medication Medication Date Date Medication? Clinician (SIG) Name Name No known No No known Unive rs medications 8-18 medication it y of 14:33: s [address] Vital Signs Vital Name Observation Time Observation Value Comments Source Systolic blood 2021-10-12 22:00:00 107 [facility] Diastolic blood 2021-10-12 22:00:00 70 mm[Hg] [facility] Heart rate 2021-10-12 22:00:00 73 /min [facility] Respiratory rate 2021-10-12 22:00:00 16 /min [facility] Oxygen saturation in 2021-10-12 22:00:00 99 /min [facility] Arterial blood by [facility] Pulse oximetry [place] Body temperature 2021-10-12 19:24:00 36.67 Radha [facility] Body height 2021-10-12 19:24:00 167.6 cm [facility] Body weight 2021-10-12 19:24:00 67.586 kg [facility] BMI 2021-10-12 19:24:00 24.05 kg/m2 [facility] Procedures Procedure Date / Time Performing Clinician Source Performed XR CHEST 1 VW 2021-10-12 20:05:[address] [facility] POCT TEST 2021-10-12 20:03:00 Megan Torres [facility] LIPASE 2021-10-12 20:01:[address] [facility] TROPONIN I 2021-10-12 20:01:[address] [facility] COMP. METABOLIC PANEL 2021-10-12 20:01:00 Megan Torres [facility] ([id number] CBC WITH DIFF 2021-10-12 20:01:[address] [facility] URINALYSIS 2021-10-12 20:01:[address] [facility] URINE DRUG (IMMUNOASSAY) 2021-10-12 20:01:00 [facility] n[facility] SCREEN W/O REFLEX HB ECG ROUTINE & RHYTHM 2021-10-12 19:54:11 Megan Torres Uni versity [facility] CONSENT/REFUSAL FOR 2021-10-12 19:25:43 Doctor Unassigned, No Un [facility] DIAGNOSIS AND TREATMENT Name Medical Branch Encounters Start End Encounter Admission Attending Care Care Encounter Source Date/Time Date/Time Type Type Clinicians Facility Department ID 2021-10-12 2021-10-12 Emergency [facility] [id number] Univers 14:25:00 17:36:00 Megan HOWARDNATALIE [id number] [facility] [id number] [facility] [id number] [facility] 084 Branch 2021-10-12 2021-10-12 Emergency X [facility] ERT [id number] Univers 14:25:00 17:36:00 MEGAN yaniraget [facility] 2019-02-28 2019-02-28 Emergency X [facility] ERT [id number] Univers 20:09:54 21:56:00 [facility] Results Test Description Test Time Test Comments Results Result Comments Source TROPONIN I 2021-10-12 20:52:10 Test Item Value Reference Range Interpretation Comme nts TROPONIN I (test code = 0.001 ng/mL See_Comment [Au tomated message] The 0120243749) system which ge nerated this result tra nsmitted reference range : <=0.034. The reference r blayne was not used to int erpret this result as normal/abnormal . STARR (test code = STARR) Reference (Normal) Range (defined by the 99th percentile reference limit): <= 0.034 ng/mL Note: Cardiac troponin begins to rise 3-4 hours after the onset of ischemia. Repeat in 4-6 hours if the sample was drawn within 3-4 hours of the onset of the symptom and found normal. Diagnosis of myocardial injury is made with acute changes in cTn concentrations with at least one serial sample above the 99th percentile upper reference limit (URL), taken together with the patient's clinical presentation. Biotin has been reported to cause a negative bias, interpret results relative to patient's use of biotin. Lab Interpretation Normal (test code = 61287-7) [facility] ([id number])2021-10-12 20:41:25 Test Item Value Reference Range Interpretation Comments NA (test code = 140 mmol/L 135-145 5947092515) K (test code = 3.8 mmol/L 3.5-5 8689304363) CL (test code = 105 mmol/L 98-108 2019536611) CO2 TOTAL (test code 26 mmol/L 23-31 = 5771810828) AGAP (test code = 2-16 0149298775) BUN (test code = 7 mg/dL 7-23 5185413248) GLUCOSE (test code = 82 mg/dL 70-110 4116923241) CREATININE (test code 0.56 mg/dL 0.5-1.04 = 6043793931) TOTAL BILI (test code 0.4 mg/dL 0.1-1.1 = 8133903871) CALCIUM (test code = 9.3 mg/dL 8.6-10.6 9804940167) T PROTEIN (test code 7.4 g/dL 6.3-8.2 = 1382219325) ALBUMIN (test code = 5.0 g/dL 3.5-5 1909659786) ALK PHOS (test code = 68 U/L 34-122 6539417386) ALTv (test code = 21 U/L 5-35 1742-6) AST(SGOT) (test code 28 U/L 13-40 = 1259932094) eGFR (test code = mL/min/1.73m2 9784881887) STARR (test code = STARR) Association of Glomerular Filtration Rate (GFR) and Staging of Kidney Disease* + + +- +| GFR (mL/min/1.73 m2) ?| With Kidney Damage ?| ?Without Kidney Damage+ ------+ ----+ ------+| ?>90 ?| ?Stage one ?| ? Normal ?+ -+ + -+| ?60-89 ?| ?Stage two ?| ? Decreased GFR ? + + +- +| ?30-59 ?| ?Stage three ?| ? Stage three ? + + +- +| ?15-29 ?| ?Stage four ? | ? Stage four ?+ -+ + -+| ?<15 (or dialysis) ? ?| ?Stage five ? | ? Stage five ?+ -+ + -+ *Each stage assumes the associated GFR level has been in effect for at least three months. ?Stages 1 to 5, with or without kidney disease, indicate chronic kidney disease. Notes: Determination of stages one and two (with eGFR >59mL/min/1.73 m2) requires estimation of kidney damage for at least three months as defined by structural or functional abnormalities of the kidney, manifested by either:Pathological abnormalities or Markers of kidney damage (including abnormalities in the composition of the blood or urine or abnormalities in imaging tests). [facility] 20:40:50 Test Item Value Reference Range Interpretation Comments LIPASE (test code = 6673584643) 66 U/L 0-220 Lab Interpretation (test code = Normal 17261-4) [facility] WITH [id number] 20:13:27 Test Item Value Reference Range Interpretation Comments WBC (test code = See_Comment [Automated 7066-2) message] The sy stem which generated this result transmitted reference range : 4.30 - 11.10 10*3/?L. The reference range was not used to interpret this result as normal/abnormal . RBC (test code = See_Comment [Automated 543-8) message] The sy stem which generated this result transmitted reference range : 3.93 - 5.25 10*6/?L. The reference range was not used to interpret this result as normal/abnormal . HGB (test code = 13.1 g/dL 11.6-15 718-7) HCT (test code = 38.6 % 35.7-45.2 4544-3) MCV (test code = 85.4 fL 80.6-95.5 787-2) MCH (test code = 29.0 pg 25.9-32.8 785-6) MCHC (test code = 33.9 g/dL 31.6-35.1 786-4) RDW-SD (test code = 39.4 fL 39-49.9 15244-3) RDW-CV (test code = 12.9 % 12-15.5 788-0) PLT (test code = See_Comment [Automated 514-3) message] The sy stem which generated this result transmitted reference range : 166 - 358 10*3/ ?L. The reference r blayne was not used to interpret this result as normal/abnormal . MPV (test code = 11.0 fL 9.5-12.9 07050-0) NRBC/100 WBC (test See_Comment [Automat ed code = 5934784671) message] The system which generated this result transmitted reference range : 0.0 - 10.0 /100 WBCs. The refer ence range was not u sed to interpret th is result as normal/abnormal . NRBC x10^3 (test code See_Comment [Auto mated = 6091356759) message] The s ystem which generated this result transmitted reference range : 10*3/?L. The reference range was not used to interpret this result as normal/abnormal . GRAN MAT (NEUT) % 63.8 % (test code = 770-8) IMM GRAN % (test code 0.30 % = 5149929844) LYMPH % (test code = 24.2 % 736-9) MONO % (test code = 8.9 % 5905-5) EOS % (test code = 1.7 % 713-8) BASO % (test code = 1.1 % 706-2) GRAN MAT x10^3(ANC) 5.69 10*3/uL 1.88-7.09 (test code = 7187771075) IMM GRAN x10^3 (test 0.03 10*3/uL 0-0.06 code = 6842451033) LYMPH x10^3 (test code 2.16 10*3/uL 1.32-3.29 = 731-0) MONO x10^3 (test code 0.79 10*3/uL 0.33-0.92 = 742-7) EOS x10^3 (test code = 0.15 10*3/uL 0.03-0.39 711-2) BASO x10^3 (test code 0.10 10*3/uL 0.01-0.07 H = 704-7) Lab Interpretation Abnormal (test code = 23277-2) [facility] [id number] 20:03:00 Test Item Value Reference Range Interpretation Comments POCT PREG (test code = 1605) negative On board controls acceptable with Present C Line (test code = 3574) POCT PREG LOT # (test code = 3575) [id number] POCT PREG TEST DATE (test 01-24-2023 code = 3576) Lab Interpretation (test code = Normal 33821-4) [facility]"
[2022-01-01] MEDS ORDERED: PHENOBARBITAL 32.4 MG TABLET PO ONE (19:42)
[2022-01-01] MEDS ORDERED: LIDOCAINE VISCOUS 2% SOLN 15 ML UDC ONE (19:42)
[2022-01-01] MEDS ORDERED: MAGNES/ALUMIN/SIMET 30ML UCUP ONE (19:42)
--- NOTE | 2022-01-01 20:56 | EDPHYS ---
Physician Documentation [facility] [place] [place] Name: Jessica North Age: 21 yrs Sex: Female : 2000 Arrival Date: 01/01/2022 Time: 19:06 Bed 24 Private MD: ED Physician Daniel Lipscomb HPI: 01/01 19:39 This 21 yrs old Female presents to ER via Ambulatory with complaints of Chest Pain, sp3 Back Pain. 19:39 21-year-old female with a history of GERD presents with chief complaint of substernal sp3 chest pain radiating to her left back. He has a history of GERD and several visits for the same in the past. Is described as waxing and waning started early this morning. She denies headache, neck pain, mid to low back pain, abdominal pain, epigastric pain, nausea, vomiting, diarrhea, rash, bleeding, syncope, near syncope, focal neurodeficit, or any other aspect of ROS at this time.. 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 - Social history:: Smoking status: uses maranaaya. ROS: 19:40 Constitutional: Negative for fever, chills, and weight loss, Eyes: Negative for injury, sp3 pain, redness, and discharge, ENT: Negative for injury, pain, and discharge, Neck: Negative for injury, pain, and swelling, Respiratory: Negative for shortness of breath, cough, wheezing, and pleuritic chest pain, MS/Extremity: Negative for injury and deformity, Skin: Negative for injury, rash, and discoloration, Neuro: Negative for headache, weakness, numbness, tingling, and seizure, Psych: Negative for depression, anxiety, suicide ideation, homicidal ideation, and hallucinations, Allergy/Immunology: Negative for hives, rash, and allergies, Endocrine: Negative for neck swelling, polydipsia, polyuria, polyphagia, and marked weight changes, Hematologic/Lymphatic: Negative for swollen nodes, abnormal bleeding, and unusual bruising. 19:40 All other systems are negative. Exam: 19:40 Constitutional: This is a well developed, well nourished patient who is awake, alert, sp3 and in no acute distress. Head/Face: Normocephalic, atraumatic. Eyes: Pupils equal round and reactive to light, extra-ocular motions intact. Lids and lashes normal. Conjunctiva and sclera are non-icteric and not injected. Cornea within normal limits. Periorbital areas with no swelling, redness, or edema. ENT: Nares patent. No nasal discharge, no septal abnormalities noted. External auditory canals are clear. Oropharynx with no redness, swelling, or masses, exudates, or evidence of obstruction, uvula midline. Mucous membranes moist. Neck: Trachea midline, no thyromegaly or masses palpated, and no cervical lymphadenopathy. Supple, full range of motion without nuchal rigidity, or vertebral point tenderness. No Meningismus. Chest/axilla: Normal chest wall appearance and motion. Nontender with no deformity. No lesions are appreciated. Cardiovascular: Regular rate and rhythm with a normal S1 and S2. No gallops, murmurs, or rubs. Normal PMI, no JVD. No pulse deficits. Respiratory: Lungs have equal breath sounds bilaterally, clear to auscultation and percussion. No rales, rhonchi or wheezes noted. No increased work of breathing, no retractions or nasal flaring. Abdomen/GI: Soft, non-tender, with normal bowel sounds. No distension or tympany. No guarding or rebound. No evidence of tenderness throughout. Skin: Warm, dry with normal turgor. Normal color with no rashes, no lesions, and no evidence of cellulitis. MS/ Extremity: Pulses equal, no cyanosis. Neurovascular intact. Full, normal range of motion. Neuro: Awake and alert, GCS 15, oriented to person, place, time, and situation. Cranial nerves II-XII grossly intact. Motor strength 5/5 in all extremities. Sensory grossly intact. Cerebellar exam normal. Normal gait. Psych: Awake, alert, with orientation to person, place and time. Behavior, mood, and affect are within normal limits. Vital Signs: 19:23 Weight 66.22 kg; Height 5 ft. 6 in. (167.64 cm); Pain 0/10; kr3 19:23 BP 122 / 81; Pulse 77; Resp 17; Temp 98.2; Pulse Ox 100% on R/A; kr3 21:01 BP 126 / 84; Pulse 76; Resp 18; Pulse Ox 100% on R/A; kr3 19:23 Body Mass Index 23.56 (66.22 kg, 167.64 cm) kr3 MDM: 19:20 Patient medically screened. sp3 19:41 Data reviewed: vital signs, nurses notes. ED course: 21-year-old female with history of sp3 GERD and now chest and back pain. Differential diagnosis includes gastritis, GERD, musculoskeletal pain. Clinically have ruled out acute coronary syndrome, pulmonary embolism, thoracic aortic dissection, mediastinitis, sepsis, shock, any other critical findings at this time. We will confirm this with chest x-ray and EKG. Treatment will consist of GI cocktail 30 mL discharged back to her PCP. I recommended tovz-jwy-hwsiatb PPI for her continued symptoms.. 20:53 ED course: Patient is improved with GI cocktail. Chest x-ray is normal as is EKG. I sp3 have recommended wumx-lrh-cwejhgs PPI and educated patient on reflux as well as techniques to decrease her symptoms including elevated head of the bed, not eating prior to sleeping, and decreasing alcohol and caffeine intake. 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 Follow-up with her primary physician as needed.. 01/01 19:21 Order name: CXR XRAY sp3 01/01 19:21 Order name: EKG - Nurse/Tech; Complete Time: 20:11 sp3 Administered Medications: 19:55 Drug: GI Cocktail with - (Phenobarbital-Belladonna 10 ml, Maalox Suspension 30 kr3 ml, Lidocaine Liquid 2 % 20 ml) Route: PO; Disposition Summary: 01/01/22 20:55 Discharge Ordered Location: Home sp3 Condition: Stable sp3 Diagnosis - GERD, Gastritis sp3 Followup: sp3 - With: Private Physician - When: Upon discharge from the Emergency Department - Reason: Continuance of care Discharge Instructions: - Discharge Summary Sheet sp3 - Gastroesophageal Reflux Disease, Adult sp3 Forms: - Medication Reconciliation Form sp3 - Thank You Letter sp3 - Antibiotic Education sp3 - Prescription Opioid Use sp3 Signatures: Dispatcher [employer] EDMS Daniel Lipscomb MD MD sp3 Jenae Morgan RN RN kr3
--- NOTE | 2022-01-01 20:56 | ER ---
Nurse's Notes [facility] Name: Jessica North Age: 21 yrs Sex: Female : 2000 Arrival Date: 01/01/2022 Time: 19:06 Bed 24 Private MD: Diagnosis: GERD, Gastritis Presentation: 01/01 19:23 Chief complaint: Patient states: I have tightness in my chest since yesterday that kr3 comes and go's. It is now causing pain in my upper left back area. I have also been sick for the last 5 days. Coronavirus screen: Vaccine status: Patient reports receiving the 1st dose of the Covid vaccine. Client denies travel out of the [place] in the last 14 days. Ebola Screen: Patient denies travel to an Ebola-affected area in the 21 days before illness onset. Initial Sepsis Screen: Does the patient meet any 2 criteria? No. Patient's initial sepsis screen is negative. Does the patient have a suspected source of infection? No. Patient's initial sepsis screen is negative. Risk Assessment: Do you want to hurt yourself or someone else? Patient reports no desire to harm self or others. Onset of symptoms was November 30, 2021. 19:23 Method Of Arrival: Ambulatory kr3 19:23 Acuity: DANYEL 4 kr3 Triage Assessment: 19:26 General: Appears in no apparent distress. comfortable, Behavior is calm, cooperative, kr3 appropriate for age. Pain: Denies pain. 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 - Social history:: Smoking status: uses marajuana. Screenin:01 Abuse screen: Denies threats or abuse. Denies injuries from another. Nutritional kr3 screening: No deficits noted. Tuberculosis screening: No symptoms or risk factors identified. Fall Risk None identified. Assessment: 20:46 Reassessment: Patient and/or family updated on plan of care and expected duration. Pain kr3 level reassessed. Patient is alert, oriented x 3, equal unlabored respirations, skin warm/dry/pink. Patient states symptoms have improved. Pain:. Cardiovascular: Patient's skin is warm and dry. Vital Signs: 19:23 Weight 66.22 kg; Height 5 ft. 6 in. (167.64 cm); Pain 0/10; kr3 19:23 BP 122 / 81; Pulse 77; Resp 17; Temp 98.2; Pulse Ox 100% on R/A; kr3 21:01 BP 126 / 84; Pulse 76; Resp 18; Pulse Ox 100% on R/A; kr3 19:23 Body Mass Index 23.56 (66.22 kg, 167.64 cm) kr3 ED Course: 19:06 Patient arrived in ED. bp1 19:09 Daniel Lipscomb MD is Attending Physician. sp3 19:23 Jenae Morgan, RN is Primary Nurse. kr3 19:25 Triage completed. kr3 19:27 Patient placed in an exam room, on a stretcher. kr3 21:01 Patient has correct armband on for positive identification. Placed in gown. Bed in low kr3 position. Call light in reach. Side rails up X2. hospital monitor on. Pulse ox on. NIBP on. Door closed. Noise minimized. Warm blanket given. 21:01 No provider procedures requiring assistance completed. Patient did not have IV access kr3 during this emergency room visit. Patient maintains SpO2 saturation greater than 95% on room air. 21:12 CXR XRAY In Process Unspecified. EDMS Administered Medications: 19:55 Drug: GI Cocktail with - (Phenobarbital-Belladonna 10 ml, Maalox Suspension 30 kr3 ml, Lidocaine Liquid 2 % 20 ml) Route: PO; Medication: 21:02 VIS not applicable for this client. kr3 Outcome: 20:55 Discharge ordered by . sp3 21:01 Discharged to home ambulatory. kr3 21:01 Condition: stable 21:01 Discharge instructions given to patient, family, Instructed on discharge instructions, follow up and referral plans. Demonstrated understanding of instructions, follow-up care. 21:02 Patient left the ED. kr3 Signatures: Dispatcher [employer] EDMS [facility] Daniel Lipscomb MD MD sp3 Jenae Morgan, RN RN kr3
--- NOTE | 2022-01-01 21:59 | RAD REPORT ---
EXAM DESCRIPTION: RAD - Chest Single View - 01/01/2022 9:10 pm CLINICAL HISTORY: CHEST PAIN COMPARISON: Chest exam 09/28/2021 TECHNIQUE: AP portable chest image was obtained 01/01/2022 9:10 pm . FINDINGS: Lungs are clear. Heart and vasculature are normal. No measurable pleural effusion and no p neumothorax. No acute bony abnormality seen. No acute aortic findings suspected. IMPRESSION: No acute cardiopulmonary process.
[2022-01-01 22:36] VITALS: BP 126/84; O2SAT 100
[2022-01-01 22:38] VITALS: TEMP 98.2
--- NOTE | 2022-01-04 06:36 | EKG ---
Test Date: 2022-01-01 Test Time: 20:08:23 Director Of Consulting Services: FAY MEASUREMENT RESULTS: Intervals: Rate: 74 LA: 148 QRSD: 94 QT: 400 QTc: 444 [place]: P: 59 LA: 148 QRS: 69 T: 63 INTERPRETIVE STATEMENTS: Normal sinus rhythm with sinus arrhythmia Normal ECG Compared to ECG 09/29/2021 00:04:59 No significant changes Electronically Signed On 01-04-22 06:31:04 LAW OFFICE RECEPTIONIST by Dhaval Kim
== END 2022-01-01 21:02 | disposition home or self-care (01) ==
LOC: ER 19:02
DX: K21.9 Gastro-esophageal reflux disease without esophagitis (principal); K29.70 Gastritis, unspecified, without bleeding
CPT/HCPCS: 71045; 93005; 99284

== ENCOUNTER → 2023-05-04 | Emergency (ER) | payer SELFPAY ==
[2023-05-04 01:31] LABS: Specific Gravity 1.024 (1.005-1.030); Urine Bacteria <20 /HPF (<20); Urine Bilirubin NEGATIVE (Negative); Urine Blood Negative (Negative); Urine Clarity Extremely Turbid (Clear); Urine Color Yellow (Yellow); Urine Crystals Unidentified Few /HPF (None Seen); Urine Glucose NEGATIVE (Negative); Urine Mucus Slight /HPF (None Seen); Urine Protein TRACE (Negative); Urine RBC <5 /HPF (None Seen); Urine Urobilinogen Normal (Normal); Urine Yeast (Budding) Trace /HPF (None Seen); Urine pH 5.5 (5.0-7.0)
[2023-05-04 01:32] LABS: Specific Gravity 1.024 (1.005-1.030)
--- NOTE | 2023-05-04 03:14 | ER ---
Nurse's Notes [facility] Name: Jessica North Age: 23 yrs Sex: Female : 2000 Arrival Date: 05/04/2023 Time: 00:32 Bed 4 Private MD: Diagnosis: Acute midthoracic back pain, acute urinary tract infection, acute cystitis Presentation: 05/03 00:44 Chief complaint: Patient states: I HAVE A RIB PAIN ON MY LEFT SIDE FOR THE PAST 3-4 ha1 DAYS. PAIN 03/06. Coronavirus screen: Vaccine status: Patient reports receiving the 1st dose of the Covid vaccine. PFIZER. Ebola Screen: No symptoms or risks identified at this time. Initial Sepsis Screen: Does the patient meet any 2 criteria? No. Patient's initial sepsis screen is negative. Does the patient have a suspected source of infection? No. Patient's initial sepsis screen is negative. Risk Assessment: Do you want to hurt yourself or someone else? Patient reports no desire to harm self or others. Onset of symptoms was May 04, 2023. 00:44 Method Of Arrival: Ambulatory ha1 00:44 Acuity: DANYEL 4 ha1 Triage Assessment: 00:44 General: Appears comfortable, Behavior is calm, cooperative. Pain: Complains of pain in ha1 left mid back Pain radiates to left upper quadrant. Neuro: Level of Consciousness is awake, alert, obeys commands, Oriented to person, place, time, situation. Cardiovascular: Capillary refill < 3 seconds Patient's skin is warm and dry. Respiratory: Airway is patent Respiratory effort is even, unlabored, Respiratory pattern is regular, symmetrical. GI: No signs and/or symptoms were reported involving the gastrointestinal system. : No signs and/or symptoms were reported regarding the genitourinary system. Musculoskeletal: Circulation, motion, and sensation intact. Range of motion: intact in all extremities, Reports pain in back. 00:44 Pain: Pain currently is 1 out of 10 on a pain scale. Quality of pain is described as ha1 pressure. 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 - Social history:: Smoking status: Patient reports the use of cigarette tobacco products, denies chronic smoking, but will smoke occasionally. - Family history:: not pertinent. Screenin:44 [facility] ED Fall Risk Assessment (Adult) History of falling in the last 3 months, ha1 including since admission No falls in past 3 months (0 pts) Confusion or Disorientation No (0 pts) Intoxicated or Sedated No (0 pts) Impaired Gait No (0 pts) Mobility Assist Device Used No (0 pt) Altered Elimination No (0 pt) Score/Fall Risk Level 0 - 2 = Low Risk Oriented to surroundings, Maintained a safe environment, Educated pt \T\ family on fall prevention, incl call for assistance when getting out of bed, Hourly rounding (assess needs \T\ fall precautionary measures) done. 00:49 Abuse screen: Denies threats or abuse. Denies injuries from another. Nutritional ha1 screening: No deficits noted. Tuberculosis screening: No symptoms or risk factors identified. Assessment: 00:49 Reassessment: SEE TRIAGE ASSESSMENT. ha1 01:50 Reassessment: Patient and/or family updated on plan of care and expected duration. Pain ha1 level reassessed. Patient is alert, oriented x 3, equal unlabored respirations, skin warm/dry/pink. 02:50 Reassessment: Patient and/or family updated on plan of care and expected duration. Pain ha1 level reassessed. Patient is alert, oriented x 3, equal unlabored respirations, skin warm/dry/pink. Vital Signs: 00:44 BP 123 / 79; Pulse 90; Resp 17 S; Temp 98.1; Pulse Ox 99% on R/A; Weight 68.04 kg; ha1 Height 5 ft. 7 in. ; Pain 03/06; 01:50 BP 124 / 79; Pulse 85; Resp 17 S; Pulse Ox 99% on R/A; ha1 02:50 BP 127 / 77; Pulse 88; Resp 17 S; Temp 98.1; Pulse Ox 99% on R/A; ha1 00:44 Body Mass Index 23.49 (68.04 kg, 170.18 cm) ha1 00:44 Pain Scale: Adult ha1 Lisy Coma Score: 03:22 Eye Response: spontaneous(4). Motor Response: obeys commands(6). Verbal Response: sp4 oriented(5). Total: 15. ED Course: 00:36 Patient arrived in ED. rg4 00:44 Patient has correct armband on for positive identification. Placed in gown. Bed in low ha1 position. Call light in reach. Side rails up X 1. 00:44 Arm band placed on right wrist. ha1 00:45 Miles Cnacino MD is Attending Physician. sp4 00:47 Triage completed. ha1 02:08 Chest Pa And Lat (2 Views) XRAY In Process Unspecified. EDMS 02:08 Spine Thoracic W/Swimmers XRAY In Process Unspecified. EDMS 03:13 Alfa Brown DO is Referral Physician. sp4 03:26 Provided Education on: MEDICATION ADMINISTRATION . ha1 03:26 No provider procedures requiring assistance completed. Patient did not have IV access ha1 during this emergency room visit. Administered Medications: No medications were administered Medication: 00:50 VIS not applicable for this client. ha1 Outcome: 03:13 Discharge ordered by . sp4 03:26 Discharged to home ambulatory, with family, ha1 03:26 Condition: stable 03:26 Discharge instructions given to patient, family, Instructed on discharge instructions, follow up and referral plans. medication usage, Demonstrated understanding of instructions, follow-up care, medications, Prescriptions given X 2, 03:27 Patient left the ED. ha1 Signatures: Dispatcher [employer] Alona Smith rg4 Jammie Garcia RN RN ha1 Miles Cancino MD MD sp4
--- NOTE | 2023-05-04 03:14 | EDPHYS ---
Physician Documentation [facility] Name: Jessica North Age: 23 yrs Sex: Female : 2000 Arrival Date: 05/04/2023 Time: 00:32 Bed 4 Private MD: ED Physician Miles Cancino HPI: 05/03 00:45 This 23 yrs old Female presents to ER via Unassigned with complaints of Back sp4 Pain, Back rib pain. 03:16 23-year-old female presents with acute onset all the lower thoracic pain mild by sp4 description 1 out of 10. Patient is employed at [email or web address], patient denied any other symptoms such as midline spinal pain. Denied lower back pain, denied fever, denied vomiting. History of GERD . 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 - Social history:: Smoking status: Patient reports the use of cigarette tobacco products, denies chronic smoking, but will smoke occasionally. - Family history:: not pertinent. ROS: 03:16 Constitutional: Negative for fever, chills, and weight loss, Back: Positive lower sp4 thoracic posterior pain 03:16 All other systems are negative, Exam: 03:22 Constitutional: This is a well developed, well nourished patient who is awake, alert, sp4 and in no acute distress. Head/Face: Normocephalic, atraumatic. Eyes: Pupils equal round and reactive to light, extra-ocular motions intact. Lids and lashes normal. Conjunctiva and sclera are not injected. Cornea within normal limits. Periorbital areas with no swelling, redness, or edema. ENT: Nares patent. No nasal discharge, no septal abnormalities noted. Tympanic membranes are normal and external auditory canals are clear. Oropharynx with no redness, swelling, or masses, exudates, or evidence of obstruction, uvula midline. Mucous membranes moist. Neck: Trachea midline, no thyromegaly or masses palpated, and no cervical lymphadenopathy. Supple, full range of motion without nuchal rigidity, or vertebral point tenderness. Chest/axilla: Normal chest wall appearance and motion. Nontender with no deformity. No lesions are appreciated. Cardiovascular: Regular rate and rhythm with a normal S1 and S2. No gallops, murmurs, or rubs. Normal PMI, no JVD. No pulse deficits. Respiratory: Lungs have equal breath sounds bilaterally, clear to auscultation and percussion. No rales, rhonchi or wheezes noted. No increased work of breathing, no retractions or nasal flaring. Abdomen/GI: Soft, with normal bowel sounds. No distension or tympany. No guarding or rebound. No evidence of tenderness throughout. Back: No spinal tenderness. No costovertebral tenderness. Skin: Warm, dry with normal turgor. Normal color with no rashes, no lesions, and no evidence of cellulitis. MS/ Extremity: Pulses equal, no cyanosis. Neurovascular intact. Full, normal range of motion. Neuro: Awake and alert, GCS 15, oriented to person, place, time, and situation. Cranial nerves II-XII grossly intact. Motor strength 5/5 in all extremities. Sensory grossly intact. Psych: Awake, alert, with orientation to person, place and time. Behavior, mood, and affect are within normal limits Vital Signs: 00:44 BP 123 / 79; Pulse 90; Resp 17 S; Temp 98.1; Pulse Ox 99% on R/A; Weight 68.04 kg; ha1 Height 5 ft. 7 in. ; Pain 1/10; 01:50 BP 124 / 79; Pulse 85; Resp 17 S; Pulse Ox 99% on R/A; ha1 02:50 BP 127 / 77; Pulse 88; Resp 17 S; Temp 98.1; Pulse Ox 99% on R/A; ha1 00:44 Body Mass Index 23.49 (68.04 kg, 170.18 cm) ha1 00:44 Pain Scale: Adult ha1 Lisy Coma Score: 03:22 Eye Response: spontaneous(4). Motor Response: obeys commands(6). Verbal Response: sp4 oriented(5). Total: 15. MDM: 00:46 Patient medically screened. sp4 03:07 ED course: EXAMINATION: XR THORACIC SPINE 3 VIEWS INDICATION: Female, 23 years old, sp4 upper back pain TECHNIQUE: 3 views COMPARISON(S): None. FINDINGS: Vertebral body heights are preserved without fracture or compression deformity. Normal kyphotic curvature with mild dextrocurvature. No evidence of listhesis. Mild endplate hypertrophy of the midthoracic vertebral levels. No acute findings of the imaged chest contents or chest wall. IMPRESSION: No acute osseous finding of the thoracic spine.. ED course: EXAM DESCRIPTION: X-ray single view chest. CLINICAL HISTORY: 23 years Female, bilateral upper back pain COMPARISON: None. TECHNIQUE: Single portable x-ray view of the chest performed on 05/04/2023 at 1:53 AM FINDINGS: The lungs are well expanded and are clear. There is no evidence of a pneumothorax. The cardiac silhouette is normal in size and configuration. The mediastinal contours are normal. No acute osseous abnormality is identified. No focal soft tissue abnormalities are seen. Lines and tubes: None. Free air: None identified, IMPRESSION: No evidence of acute intrathoracic disease. . 03:23 Differential diagnosis: Fatigue Fracture Joint Injury Ligament Injury. Data reviewed: sp4 vital signs, nurses notes, lab test result(s), UPT: negative radiologic studies, plain films. Consideration of Admission/Observation Escalation of care including admission/observation considered. ED course: Patient has unremarkable radiographs. Urine reveals signs of mild urinary tract infection not consistent with pyelonephritis.. Patient is stable for discharge home with as needed Robaxin also 5-day course of cephalexin for incidental finding of UTI. Otherwise stable for discharge home.. 03 00:46 Order name: Test, Urine; Complete Time: 03:09 sp4 05/03 00:46 Order name: Urinalysis W/Microscopic; Complete Time: 03:09 sp4 05/03 01:42 Order name: Glucose, Ancillary Testing; Complete Time: 03:09 EDMS 05/03 01:03 Order name: Chest Pa And Lat (2 Views) XRAY sp4 05/03 01:03 Order name: Spine Thoracic W/Swimmers XRAY sp4 05/03 01:03 Order name: Accucheck Blood Glucose; Complete Time: 01:31 sp4 Administered Medications: No medications were administered Disposition Summary: 05/04/23 03:13 Discharge Ordered Notes: Location: Home sp4 Problem: new sp4 Symptoms: have improved sp4 Condition: Stable sp4 Diagnosis - Acute midthoracic back pain, acute urinary tract infection, acute cystitis sp4 Followup: sp4 - With: Alfa Brown DO - When: 7 - 10 days - Reason: Recheck today's complaints Discharge Instructions: - Discharge Summary Sheet sp4 - Urinary Tract Infection, Adult, [id number] sp4 Forms: - Patient Portal Instructions sp4 Prescriptions: - Cephalexin 500 mg Oral capsule - take 1 capsule ORAL route every 12 hours for 5 days; 10 capsule; Refills: 0, sp4 Product Selection Permitted - methocarbamol 750 mg Oral tablet - take 2 tablet ORAL route every 8 hours PRN back pain; 40 tablet; Refills: 0, sp4 Product Selection Permitted Signatures: Dispatcher [employer] Jammie Anthony RN RN ha1 Miles Cancino MD MD sp4
[2023-05-04 04:20] VITALS: BP 127/77; TEMP 98.1; O2SAT 99
--- NOTE | 2023-05-04 16:26 | RAD REPORT ---
EXAM DESCRIPTION: RAD - Spine Thoracic W/Swimmers - 05/04/2023 2:06 am CLINICAL HISTORY: Female, 23 years old, upper back pain TECHNIQUE: 3 views COMPARISON: None. FINDINGS: Vertebral body heights are preserved without fracture or compression deformity. Normal kyp hotic curvature with mild dextrocurvature. No evidence of listhesis. Mild endplate hypertrophy of the midthoracic vertebral levels. No acute findings of the imaged chest contents or chest wall. IMPRESSION: No acute osseous finding of the thoracic spine. 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 The interpreting radiologist is fully responsible for the content of the report.
--- NOTE | 2023-05-04 16:28 | RAD REPORT ---
EXAM DESCRIPTION: RAD - Chest Pa And Lat (2 Views) - 05/04/2023 2:06 am CLINICAL HISTORY: 23 years Female, bilateral upper back pain COMPARISON: None. TECHNIQUE: Single portable x-ray view of the chest performed on 05/04/2023 at 1:53 AM FINDINGS: The lungs are well expanded and are clear. There is no evidence of a pneumothorax. The cardiac silhouette is normal in size and configuration. The mediastinal contours are normal. No acute osseous abnormality is identified. No focal soft tissue abnormalities are seen. Lines and tubes: None. Free air: None identified, IMPRESSION: No evidence of acute intrathoracic disease. Electronically signed by: Gema Farias DO 05/04/2023 02:35 AM RING CONDUCTOR Due to temporary technical issues with the PACS/Fluency reporting system, reports are being signed by the in house radiologists without review as a courtesy to insure prompt reporting. The interpreting radiologist is fully responsible for the content of the report.
== END ==
LOC: ER 00:32
DX: N30.00 Acute cystitis without hematuria (principal)
CPT/HCPCS: 71046; 72072; 81001; 81025; 82947; 99283

== ENCOUNTER 2023-05-30 23:17 | Emergency (ER) | payer SELFPAY ==
[2023-05-30 23:50] LABS: Specific Gravity 1.003 (1.005-1.030)
[2023-05-30 23:52] LABS: Specific Gravity < 1.005 (1.005-1.030); Sqamous Epithelial <5 /HPF (None Seen); Urine Bacteria <20 /HPF (<20); Urine Bilirubin NEGATIVE (Negative); Urine Blood 2+ (Negative); Urine Clarity Extremely Turbid (Clear); Urine Color Colorless (Yellow); Urine Crystals Unidentified Few /HPF (None Seen); Urine Culture Reflex Order NOT NEEDED; Urine Glucose NEGATIVE (Negative); Urine Ketones NEGATIVE (Negative); Urine Micro Reflex YN NO BILL MICROSCOPIC; Urine Nitrite NEGATIVE (Negative); Urine Protein NEGATIVE (Negative); Urine RBC <5 /HPF (None Seen); Urine Urobilinogen Normal (Normal); Urine WBC <5 /HPF (<5)
--- NOTE | 2023-05-30 23:54 | EDPHYS ---
Physician Documentation [facility] Name: Jessica North Age: 23 yrs Sex: Female : 2000 Arrival Date: 05/30/2023 Time: 23:17 Bed 13 Private MD: ED Physician Daniel Lipscomb HPI: 05/29 23:28 This 23 yrs old Female presents to ER via Unassigned with complaints of Pain With sp3 Urination, Low Back Pain. 23:28 23-year-old female with history of UTIs with last UTI in February who now presents to 3 the ED with recurrent symptoms. She states that the last time she had it she did not get her prescription filled because she did not have any money. Today she states she has dysuria and low back pain. No other symptoms including fever, chest pain, shortness of breath, abdominal pain, vomit, diarrhea, rash, visible hematuria, denies , no other signs or symptoms on ROS at this time.. 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 - Infectious Disease History:: Denies. - Social history:: Smoking status: Patient reports the use of cigarette tobacco products, denies chronic smoking, but will smoke occasionally. ROS: 23:29 Constitutional: Negative for fever, chills, and weight loss, Eyes: Negative for injury, sp3 pain, redness, and discharge, ENT: Negative for injury, pain, and discharge, Neck: Negative for injury, pain, and swelling, Cardiovascular: Negative for chest pain, palpitations, and edema, Respiratory: Negative for shortness of breath, cough, wheezing, and pleuritic chest pain, Abdomen/GI: Negative for abdominal pain, nausea, vomiting, diarrhea, and constipation, MS/Extremity: Negative for injury and deformity, Skin: Negative for injury, rash, and discoloration, Neuro: Negative for headache, weakness, numbness, tingling, and seizure, Psych: Negative for depression, anxiety, suicide ideation, homicidal ideation, and hallucinations, Allergy/Immunology: Negative for hives, rash, and allergies, Endocrine: Negative for neck swelling, polydipsia, polyuria, polyphagia, and marked weight changes, 23:29 All other systems are negative, Exam: 23:29 Constitutional: This is a well developed, well nourished patient who is awake, alert, sp3 and in no acute distress. Head/Face: Normocephalic, atraumatic. Eyes: Pupils equal round and reactive to light, extra-ocular motions intact. Lids and lashes normal. Conjunctiva and sclera are non-icteric and not injected. Cornea within normal limits. Periorbital areas with no swelling, redness, or edema. Neck: Trachea midline, no thyromegaly or masses palpated, and no cervical lymphadenopathy. Supple, full range of motion without nuchal rigidity, or vertebral point tenderness. No Meningismus. Chest/axilla: Normal chest wall appearance and motion. Nontender with no deformity. No lesions are appreciated. Cardiovascular: Regular rate and rhythm with a normal S1 and S2. No gallops, murmurs, or rubs. Normal PMI, no JVD. No pulse deficits. Respiratory: Lungs have equal breath sounds bilaterally, clear to auscultation and percussion. No rales, rhonchi or wheezes noted. No increased work of breathing, no retractions or nasal flaring. Abdomen/GI: Soft, non-tender, with normal bowel sounds. No distension or tympany. No guarding or rebound. No evidence of tenderness throughout. Back: No spinal tenderness. No costovertebral tenderness. Full range of motion. Skin: Warm, dry with normal turgor. Normal color with no rashes, no lesions, and no evidence of cellulitis. MS/ Extremity: Pulses equal, no cyanosis. Neurovascular intact. Full, normal range of motion. Neuro: Awake and alert, GCS 15, oriented to person, place, time, and situation. Cranial nerves II-XII grossly intact. Motor strength 5/5 in all extremities. Sensory grossly intact. Cerebellar exam normal. Normal gait. Psych: Awake, alert, with orientation to person, place and time. Behavior, mood, and affect are within normal limits. Vital Signs: 23:20 BP 116 / 92; Pulse 89; Resp 17 S; Temp 98.2(O); Pulse Ox 99% on R/A; Weight 68.04 kg; ha1 Height 5 ft. 7 in. ; 23:20 Body Mass Index 23.49 (68.04 kg, 170.18 cm) ha1 MDM: 23:23 Patient medically screened. sp3 23:29 Data reviewed: vital signs, old medical records, lab test result(s). ED course: sp3 33-year-old female with dysuria. Consider UTI versus high tract disease versus pyelonephritis. I am not highly suspicious of , kidney stone or any other pathology. I am also not suspecting GI or MANAGER MANAGED CARE pathology. Disposition pending UA results with probable discharge on antibiotics.. 23:53 ED course: UA demonstrates positive Estrace we will treat with Bactrim 3 days. sp3 is negative.. 05/29 23:20 Order name: UAM; Complete Time: 23:52 sp3 05/29 23:20 Order name: Test, Urine; Complete Time: 23:52 sp3 Administered Medications: No medications were administered Disposition Summary: 05/30/23 23:53 Discharge Ordered Notes: Location: Home sp3 Condition: Stable sp3 Diagnosis - Urinary tract infection sp3 Followup: sp3 - With: Private Physician - When: Upon discharge from the Emergency Department - Reason: Continuance of care Discharge Instructions: - Discharge Summary Sheet sp3 - Urinary Tract Infection, Adult sp3 Forms: - Medication Reconciliation Form sp3 - Thank You Letter sp3 - Antibiotic Education sp3 - Prescription Opioid Use sp3 - Patient Portal Instructions sp3 - Leadership Thank You Letter sp3 Prescriptions: - Bactrim DS 800-160 mg Oral Tablet - take 1 tablet ORAL route every 12 hours for 3 days; 6 tablet; Refills: 0, sp3 Product Selection Permitted Signatures: Dispatcher [employer] EDMS Daniel Lipscomb MD MD sp3 Jammie Garcia, RN RN ha1
--- NOTE | 2023-05-30 23:54 | ER ---
Nurse's Notes [facility] Name: Jessica North Age: 23 yrs Sex: Female : 2000 Arrival Date: 05/30/2023 Time: 23:17 Bed 13 Private MD: Diagnosis: Urinary tract infection Presentation: 05/29 23:20 Chief complaint: Patient states: I was here a month ago and got diagnosed with a UTI ha1 but I have not been able to buy the prescribed medications. I continue to have burning with urination, urinary incontinence, and back pain. 23:20 Coronavirus screen: Vaccine status: Patient reports receiving the 1st dose of the Covid ha1 vaccine. [place]. Ebola Screen: No symptoms or risks identified at this time. Initial Sepsis Screen: Does the patient meet any 2 criteria? No. Patient's initial sepsis screen is negative. Does the patient have a suspected source of infection? No. Patient's initial sepsis screen is negative. Risk Assessment: Do you want to hurt yourself or someone else? Patient reports no desire to harm self or others. Onset of symptoms was May 30, 2023. 23:20 Method Of Arrival: Ambulatory ha1 23:20 Acuity: DANYEL 4 ha1 Triage Assessment: 23:20 General: Appears comfortable, Behavior is calm, cooperative. Pain: Complains of pain in ha1 back Pain does not radiate. Pain currently is 4 out of 10 on a pain scale. Quality of pain is described as pressure. Neuro: Level of Consciousness is awake, alert, obeys commands, Oriented to person, place, time, situation. Cardiovascular: Patient's skin is warm and dry. Respiratory: Airway is patent Respiratory effort is even, unlabored, Respiratory pattern is regular, symmetrical. : Reports incontinence, urgency, urinary frequency. 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 - Infectious Disease History:: Denies. - Social history:: Smoking status: Patient reports the use of cigarette tobacco products, denies chronic smoking, but will smoke occasionally. Screenin:32 Abuse screen: Denies threats or abuse. Denies injuries from another. Nutritional ha1 screening: No deficits noted. Tuberculosis screening: No symptoms or risk factors identified. 05/30 00:03 [facility] ED Fall Risk Assessment (Adult) History of falling in the last 3 months, jb4 including since admission No falls in past 3 months (0 pts) Confusion or Disorientation No (0 pts) Intoxicated or Sedated No (0 pts) Impaired Gait No (0 pts) Mobility Assist Device Used No (0 pt) Altered Elimination No (0 pt) Score/Fall Risk Level 0 - 2 = Low Risk Oriented to surroundings, Maintained a safe environment. Assessment: 00:03 General: Appears in no apparent distress. comfortable, Behavior is calm, cooperative, jb4 appropriate for age. Pain: Complains of pain in low back area Pain does not radiate. Pain currently is 5 out of 10 on a pain scale. Neuro: Level of Consciousness is awake, alert, obeys commands, Oriented to person, place, time, situation. Cardiovascular: Patient's skin is warm and dry. Respiratory: Airway is patent Respiratory effort is even, unlabored, Respiratory pattern is regular, symmetrical. GI: No signs and/or symptoms were reported involving the gastrointestinal system. : EENT: No signs and/or symptoms were reported regarding the EENT system. Derm: Skin is intact, Skin is pink, warm \T\ dry. Musculoskeletal: Circulation, motion, and sensation intact. Range of motion: intact in all extremities. Vital Signs: 05/29 23:20 BP 116 / 92; Pulse 89; Resp 17 S; Temp 98.2(O); Pulse Ox 99% on R/A; Weight 68.04 kg; ha1 Height 5 ft. 7 in. ; 23:20 Body Mass Index 23.49 (68.04 kg, 170.18 cm) 1 ED Course: 23:18 Patient arrived in ED. jj6 23:19 Daniel Lipscomb MD is Attending Physician. sp3 23:30 Triage completed. ha1 05/30 00:03 Patient has correct armband on for positive identification. Bed in low position. Call jb4 light in reach. Side rails up X 1. Provided Education on: discharge instructions. 00:03 No provider procedures requiring assistance completed. Patient did not have IV access jb4 during this emergency room visit. Administered Medications: No medications were administered Medication: 00:03 VIS not applicable for this client. jb4 Outcome: 05/29 23:53 Discharge ordered by . sp3 05/30 00:03 Discharged to home ambulatory, with friend, jb4 Condition: stable Discharge instructions given to patient, Instructed on discharge instructions, follow up and referral plans. medication usage, Demonstrated understanding of instructions, follow-up care, medications, Prescriptions given X 1, 00:07 Patient left the ED. jb4 Signatures: Shahid Morrell RN RN jb4 Daniel Lipscomb MD MD sp3 Debi [id number] Jammie Garcia, RN RN ha1
[2023-05-31 02:49] VITALS: BP 116/92; TEMP 98.2; O2SAT 99
== END 2023-05-31 00:07 | disposition home or self-care (01) ==
LOC: ER 23:17
DX: N39.0 Urinary tract infection, site not specified (principal)
CPT/HCPCS: 81001; 81025; 99283

== ENCOUNTER 2023-06-06 23:11 | Emergency (ER) | payer SELFPAY ==
[2023-06-07 00:03] LABS: Absolute Basophils 0.1 K/uL (0-0.5); Absolute Eosinophils 0.4 K/uL (0-0.5); Absolute Lymphocytes (CBC) 4.1 K/uL (0.7-4.9); Absolute Monocytes 1.1 K/uL (0.1-1.3); Absolute Neutrophil 9.2 K/uL (1.8-8.0); Basophils % 0.8 % (0-1.3); Eosinophils % 2.5 % (0-4.4); Hematocrit 33.9 % (36.0-45.0); Hemoglobin 11.5 g/dL (12.0-15.0); Lymphocytes % 27.4 % (15.3-44.8); MCH 28.4 pg (27.0-35.0); MCHC 33.8 g/dL (32.0-36.0); MCV 83.9 fL (80-100); MPV 8.8 fL (7.6-11.3); Monocytes % 7.6 % (3.3-12.3); Neutrophils % 61.7 % (41.7-73.7); Nucleated Red Blood Cells % 0.1 % (0-0); Platelets 266 thou/uL (152-406); RBC Red Blood Cell Count 4.04 M/uL (3.86-4.86); Red Cell Distribution Width 13.8 % (12.1-15.2)
[2023-06-07 00:29] LABS: ALT/SGPT 47 U/L (13-56); AST/SGOT 23 U/L (15-37); Albumin/Globulin Ratio 1.1 (1.1-1.8); Alkaline Phosphatase 121 U/L (45-117); Anion Gap 8.7 mEq/L (5.0-15.0); BUN Blood Urea Nitrogen 11 mg/dL (7-18); Bicarbonate 25 mEq/L (21-32); Bilirubin Direct 0.1 mg/dL (0-0.2); Bilirubin Indirect, Calculated 0.1 mg/dL (0.2-0.8); Bilirubin Total 0.2 mg/dL (0.2-1.0); Globulin 3.6 g/dL (2.3-3.5); Glomerular Filtration Rate 124 ml/min (=/>90); Glucose Level 101 mg/dL (74-106); Magnesium 1.9 mg/dL (1.6-2.4); Potassium 3.7 mEq/L (3.5-5.1); Protein, Total 7.6 g/dL (6.4-8.2); Sodium Level 138 mEq/L (136-145)
[2023-06-07 00:33] LABS: Troponin High Sensitivity < 3.0 pg/mL (<58.9)
[2023-06-07 00:51] LABS: Specific Gravity 1.015 (1.005-1.030)
[2023-06-07 00:57] LABS: Barbiturates NEGATIVE (NEGATIVE); Benzodiazepines NEGATIVE (NEGATIVE); Cocaine NEGATIVE (NEGATIVE); METHAMPHETAM NEGATIVE (NEGATIVE); Methadone NEGATIVE (NEGATIVE); Opiates NEGATIVE (NEGATIVE); Phencyclidine NEGATIVE (NEGATIVE); THC Cannibis POSITIVE (NEGATIVE)
--- NOTE | 2023-06-07 01:08 | ER ---
Nurse's Notes [facility] Name: Jessica North Age: 23 yrs Sex: Female : 2000 Arrival Date: 06/06/2023 Time: 23:11 Bed 17 Private MD: Diagnosis: Cardiac arrhythmia, unspecified Presentation: 06/05 23:18 Chief complaint: Patient states: Pt c/o SOB x 2 days. Pt states when she lays on her tl4 left side she experiences palpitations x 3 beats that resolve x 1 week. Pt states she has chest tightness x "just a few days". Pt denies nausea, diaphoresis. Coronavirus screen: At this time, the client does not indicate any symptoms associated with coronavirus-19. Ebola Screen: No symptoms or risks identified at this time. Initial Sepsis Screen: Does the patient meet any 2 criteria? No. Patient's initial sepsis screen is negative. Does the patient have a suspected source of infection? No. Patient's initial sepsis screen is negative. Risk Assessment: Do you want to hurt yourself or someone else? Patient reports no desire to harm self or others. Onset of symptoms was June 04, 2023. 23:18 Method Of Arrival: Ambulatory tl4 23:18 Acuity: DANYEL 3 tl4 Triage Assessment: 23:23 General: Appears in no apparent distress. Behavior is calm, cooperative. Pain: tl4 Complains of pain in chest. EENT: No signs and/or symptoms were reported regarding the EENT system. Neuro: Level of Consciousness is awake, alert, obeys commands, Oriented to person, place, time, situation, Moves all extremities. Gait is steady, Speech is normal. Cardiovascular: Reports chest pain, Capillary refill < 3 seconds Patient's skin is warm and dry. Respiratory: Airway is patent Respiratory effort is even, unlabored, Respiratory pattern is regular, symmetrical. Respiratory: Reports shortness of breath. GI: No signs and/or symptoms were reported involving the gastrointestinal system. : No signs and/or symptoms were reported regarding the genitourinary system. Derm: No signs and/or symptoms reported regarding the dermatologic system. Musculoskeletal: No signs and/or symptoms reported regarding the musculoskeletal system. Historical: - Allergies: 23:22 No Known Allergies; tl4 - Home Meds: 23:22 Prilosec Oral [Active]; tl4 - PMHx: 23:22 GERD; tl4 - PSHx: 23:22 None; tl4 - Immunization history:: Adult Immunizations unknown. - Infectious Disease History:: Denies. - Social history:: Smoking status: Patient reports the use of cigarette tobacco products, denies chronic smoking, but will smoke occasionally. Screenin:38 [facility] ED Fall Risk Assessment (Adult) History of falling in the last 3 months, rv including since admission No falls in past 3 months (0 pts) Score/Fall Risk Level 0 - 2 = Low Risk Oriented to surroundings, Maintained a safe environment, Educated pt \\T\\ family on fall prevention, incl call for assistance when getting out of bed, Assessed \\T\\ reinforced patient's understanding of fall precautions. Abuse screen: Denies threats or abuse. Denies injuries from another. Nutritional screening: No deficits noted. Tuberculosis screening: No symptoms or risk factors identified. Assessment: 23:38 General: Appears comfortable, Behavior is calm, cooperative. Pain: Complains of pain in rv chest Pain does not radiate. Pain began suddenly. Neuro: Level of Consciousness is awake, alert, obeys commands, Oriented to person, place, time, situation. Cardiovascular: Capillary refill < 3 seconds Patient's skin is warm and dry. Rhythm is sinus arrythmia. Cardiovascular: Reports chest pain, shortness of breath. Respiratory: Airway is patent Respiratory effort is even, unlabored. GI: No signs and/or symptoms were reported involving the gastrointestinal system. : No signs and/or symptoms were reported regarding the genitourinary system. Vital Signs: 23:18 BP 125 / 58; Pulse 86; Resp 16; Temp 98.7(TE); Pulse Ox 100% ; Weight 68.04 kg; Height tl4 5 ft. 7 in. ; Pain 04/06; 06/06 01:17 BP 114 / 54; Pulse 84; Resp 17; Temp 98; Pulse Ox 99% ; rv 06/05 23:18 Body Mass Index 23.49 (68.04 kg, 170.18 cm) tl4 06/05 23:18 Pain Scale: Adult tl4 [place] Coma Score: 06/05 23:38 Eye Response: spontaneous(4). Motor Response: obeys commands(6). Verbal Response: rv oriented(5). Total: 15. ED Course: 23:14 Patient arrived in ED. ra3 23:20 Donna Ellsworth PA-C is PHCP. sb4 23:20 Miles Cancino MD is Attending Physician. sb4 23:22 Triage completed. tl4 23:24 Arm band placed on left wrist. tl4 23:27 Jaylan Teran, RN is Primary Nurse. tm6 23:38 Patient has correct armband on for positive identification. Client placed on continuous rv cardiac and pulse oximetry monitoring. NIBP monitoring applied. court reporter on. 23:38 No provider procedures requiring assistance completed. O2 via RA. rv 0412 00:00 Basic Metabolic Panel Sent. rv 00:00 CBC with Diff Sent. rv 00:00 D-Dimer Sent. rv 00:00 LFT's Sent. rv 00:00 Magnesium Sent. rv 00:00 Troponin HS Sent. rv 00:00 TSH Sent. rv 00:00 Initial lab(s) drawn, by in, sent to lab. Inserted saline lock: 20 gauge in left rv antecubital area, using aseptic technique. Blood collected. 00:22 XRAY Chest (1 view) In Process Unspecified. EDMS 01:08 Gilmar Real MD is Referral Physician. sb4 01:17 IV discontinued, intact, bleeding controlled, No redness/swelling at site. Pressure rv dressing applied. Administered Medications: 01:16 Drug: GI Cocktail without - (Maalox PO 30 ml, Lidocaine Mucous Membrane 2 % 15 rv ml) PO once Route: PO; 01:16 Follow up: Response: Medication administered at discharge. rv Medication: 06/05 23:38 VIS not applicable for this client. rv Outcome: 06/06 01:08 Discharge ordered by . sb4 01:16 Discharged to home ambulatory, rv 01:16 Condition: good 01:16 Discharge instructions given to patient, Instructed on discharge instructions, follow up and referral plans. Demonstrated understanding of instructions, follow-up care, 01:17 Patient left the ED. rv Signatures: Dispatcher [employer] EDMS Iraj Conrad RN RN rv Donna Ellsworth PA-C PA-C sb4 Masterson, Tawney, RN RN tm6 Logda, Ghanshyam RN RN tl4 Maddy Ozuna ra3 Corrections: (The following items were deleted from the chart) 06/05 23:23 23:22 Home Meds: Pepcid Oral; tl4 tl4
--- NOTE | 2023-06-07 01:08 | EDPHYS ---
Physician Documentation [facility] Name: Jessica North Age: 23 yrs Sex: Female : 2000 Arrival Date: 06/06/2023 Time: 23:11 Bed 17 Private MD: ED Physician Miles Cancino HPI: 06/05 23:38 This 23 yrs old Female presents to ER via Ambulatory with complaints of Chest Pain, sb4 Shortness Of Breath. 23:38 Patient states that she has been having palpitations intermittently for some time now, sb4 but states that they have worsened over the past few days. She also reports intermittent shortness of breath. She states she feels like the palpitations occur when she is laying on her left side. Reports that they subside on their own. Denies any cardiac history. No other associated signs and symptoms. Historical: - Allergies: 23:22 No Known Allergies; tl4 - Home Meds: 23:22 Prilosec Oral [Active]; tl4 - PMHx: 23:22 GERD; tl4 - PSHx: 23:22 None; tl4 - Immunization history:: Adult Immunizations unknown. - Infectious Disease History:: Denies. - Social history:: Smoking status: Patient reports the use of cigarette tobacco products, denies chronic smoking, but will smoke occasionally. ROS: 23:40 Constitutional: Negative for fever, chills, and weight loss, sb4 23:40 Cardiovascular: Positive for chest pain, palpitations, 23:40 Respiratory: Positive for shortness of breath, 23:40 All other systems are negative, Exam: 23:40 Constitutional: This is a well developed, well nourished patient who is awake, alert, sb4 and in no acute distress. Head/Face: Normocephalic, atraumatic. Eyes: Extra-ocular motions intact. Periorbital areas with no swelling, redness, or edema. ENT: Mucous membranes moist. Cardiovascular: Regular rate and rhythm with a normal S1 and S2. Respiratory: Lungs have equal breath sounds bilaterally, clear to auscultation and percussion. No rales, rhonchi or wheezes noted. No increased work of breathing, no retractions or nasal flaring. Abdomen/GI: Soft, non-tender, no distension. Skin: Warm, dry with normal turgor. Normal color with no rashes, no lesions, and no evidence of cellulitis. MS/ Extremity: Pulses equal, no cyanosis. Neurovascular intact. Full, normal range of motion. Neuro: Awake and alert, GCS 15, oriented to person, place, time, and situation. Motor strength 5/5 in all extremities. Sensory grossly intact. Vital Signs: 23:18 BP 125 / 58; Pulse 86; Resp 16; Temp 98.7(TE); Pulse Ox 100% ; Weight 68.04 kg; Height tl4 5 ft. 7 in. ; Pain 04/06; 06/06 01:17 BP 114 / 54; Pulse 84; Resp 17; Temp 98; Pulse Ox 99% ; rv 06/05 23:18 Body Mass Index 23.49 (68.04 kg, 170.18 cm) tl4 06/05 23:18 Pain Scale: Adult tl4 [place] Coma Score: 06/05 23:38 Eye Response: spontaneous(4). Motor Response: obeys commands(6). Verbal Response: rv oriented(5). Total: 15. MDM: 23:30 Patient medically screened. sb4 06/06 01:07 Data reviewed: vital signs, nurses notes, lab test result(s), EKG, radiologic studies, sb4 and as a result, I will discharge patient. Scoring Tools HEART Score: History: ECG: Age: Risk Factors: No Risk Factors Known (0), Troponin: Total Score = 0. Counseling: I had a detailed discussion with the patient and/or guardian regarding the historical points, exam findings, and any diagnostic results supporting the discharge/admit diagnosis, lab results, radiology results, the need for outpatient follow up, for definitive care, to return to the emergency department if symptoms worsen or persist or if there are any questions or concerns that arise at home. 06/05 23:40 Order name: Basic Metabolic Panel; Complete Time: 00:33 sb4 06/05 23:40 Order name: CBC with Diff sb4 06/05 23:40 Order name: D-Dimer; Complete Time: 00:12 sb4 06/05 23:40 Order name: LFT's; Complete Time: 00:33 sb4 06/05 23:40 Order name: Magnesium; Complete Time: 00:33 sb4 06/05 23:40 Order name: Troponin HS; Complete Time: 00:33 sb4 06/05 23:40 Order name: TSH; Complete Time: 00:33 sb4 06/05 23:40 Order name: UDS; Complete Time: 00:58 sb4 06/05 23:40 Order name: Test, Urine; Complete Time: 00:54 sb4 06/05 23:40 Order name: XRAY Chest (1 view) sb4 06/05 23:30 Order name: EKG; Complete Time: 23:30 sb4 06/05 23:30 Order name: EKG - Nurse/Tech; Complete Time: 23:38 sb4 06/05 23:40 Order name: Cardiac monitoring; Complete Time: 00:00 sb4 06/05 23:40 Order name: IV Saline Lock; Complete Time: 00:00 sb4 06/05 23:40 Order name: Labs collected and sent; Complete Time: 00:00 sb4 06/05 23:40 Order name: O2 Per Protocol; Complete Time: 00:00 sb4 06/05 23:40 Order name: O2 Sat Monitoring; Complete Time: 00:00 sb4 EC/11 23:40 Rate is 89 beats/min. Rhythm is regular, Sinus arrythmia. RI interval is normal at 156 sb4 msec. QRS interval is normal at 84 msec. QT interval is normal at 376 msec. No Q waves. T waves are Normal. No ST changes noted. Clinical impression: Sinus arrythmia and No evidence of ischemia. Interpreted by me. Reviewed by me. Administered Medications: 06/06 01:16 Drug: GI Cocktail without - (Maalox PO 30 ml, Lidocaine Mucous Membrane 2 % 15 rv ml) PO once Route: PO; 01:16 Follow up: Response: Medication administered at discharge. rv Disposition: 05:46 Co-signature as Attending Physician, Miles Cancino MD I agree with the assessment sp4 and plan of care. I reviewed the patient's care provided by the Advanced Practice Provider and agree with the diagnosis and treatment plan. Disposition Summary: 06/07/23 01:08 Discharge Ordered Problem: new sb4 Symptoms: have improved sb4 Condition: Stable sb4 Diagnosis - Cardiac arrhythmia, unspecified sb4 Followup: sb4 - With: Gilmar Real MD - When: As needed - Reason: Recheck today's complaints, Re-evaluation by your physician Discharge Instructions: - Discharge Summary Sheet sb4 - Palpitations sb4 Forms: - Thank You Letter sb4 - Patient Portal Instructions sb4 - Leadership Thank You Letter sb4 Signatures: Dispatcher [employer] Iraj Chapman, RN RN Donna Webster PA-C PA-C sb4 Miles Cancino MD MD sp4 Ghanshyam Delong RN RN tl4 Corrections: (The following items were deleted from the chart) 06/05 23:23 23:22 Home Meds: Pepcid Oral; tl4 tl4
[2023-06-07] MEDS ORDERED: MAGNES/ALUMIN/SIMET 30ML UCUP ONE (01:14)
[2023-06-07] MEDS ORDERED: LIDOCAINE VISCOUS 2% 10ML ORAL SOLN ONE (01:15)
[2023-06-07 07:21] VITALS: BP 114/54; TEMP 98; O2SAT 99
--- NOTE | 2023-06-07 13:37 | EKG ---
Test Date: 2023-06-06 Test Time: 23:35:28 Front Man: RV MEASUREMENT RESULTS: Intervals: Rate: 89 CT: 156 QRSD: 84 QT: 376 QTc: 457 [place]: P: 54 CT: 156 QRS: 56 T: 47 INTERPRETIVE STATEMENTS: Normal sinus rhythm with sinus arrhythmia Normal ECG Compared to ECG 01/01/2022 20:08:23 No significant changes Electronically Signed On 06-07-23 13:36:06 CDT by Gilmar Real
--- NOTE | 2023-06-10 20:19 | RAD REPORT ---
EXAM DESCRIPTION: RAD - Chest Single View - 06/07/2023 12:20 am CLINICAL HISTORY: 23 years, Female, CHEST PAIN COMPARISON: 05/04/2023 FINDINGS: 1 views of the chest was obtained. Prior films were compared. There is normal lung volum e. Mediastinum: The cardiomediastinal silhouette appears normal in size and shape. Lungs: No areas of consolidations or masses are identified. Heart: The heart is normal in size. Thoracic aorta: The thoracic aorta demonstrate to be normal. Pulmonary vasculature: The pulmonary vasculature is normal in distribution. Pleura: The costophrenic angles demonstrate to be sharp. Osseous structures: The bony structures demonstrate to be within normal limits. Other: None. IMPRESSION: No acute cardiopulmonary disease is seen Electronically signed by: Miguel A Domínguez MD 06/07/2023 01:13 AM CDT Due to temporary technical issues with the PACS/Fluency reporting system, reports are being signed by the in house radiologists without review as a courtesy to insure prompt reporting. The interpreting radiologist is fully responsible for the content of the report.
== END 2023-06-07 01:17 | disposition home or self-care (01) ==
LOC: ER 23:11
DX: I49.9 Cardiac arrhythmia, unspecified (principal)
CPT/HCPCS: 36415; 71045; 80048; 80076; 80307; 81025; 83735; 84443; 84484; 85025; 85379; 93005; 99285

== ENCOUNTER 2023-06-12 14:00 | Emergency (ER) | payer SELFPAY ==
[2023-06-12 15:10] LABS: Absolute Basophils 0.1 K/uL (0-0.5); Absolute Eosinophils 0.2 K/uL (0-0.5); Absolute Lymphocytes (CBC) 2.7 K/uL (0.7-4.9); Absolute Monocytes 1.4 K/uL (0.1-1.3); Absolute Neutrophil 11.4 K/uL (1.8-8.0); Basophils % 0.5 % (0-1.3); Eosinophils % 1.3 % (0-4.4); Hematocrit 35.3 % (36.0-45.0); Hemoglobin 11.7 g/dL (12.0-15.0); Lymphocytes % 17.1 % (15.3-44.8); MCH 27.4 pg (27.0-35.0); MCHC 33.1 g/dL (32.0-36.0); MCV 82.9 fL (80-100); MPV 8.8 fL (7.6-11.3); Monocytes % 8.8 % (3.3-12.3); Neutrophils % 72.3 % (41.7-73.7); Platelets 330 thou/uL (152-406); RBC Red Blood Cell Count 4.26 M/uL (3.86-4.86); Red Cell Distribution Width 13.7 % (12.1-15.2)
[2023-06-12 15:10] LABS: Specific Gravity 1.011 (1.005-1.030)
[2023-06-12 15:16] LABS: Specific Gravity 1.011 (1.005-1.030); Sqamous Epithelial <5 /HPF (None Seen); Urine Bacteria None Seen /HPF (<20); Urine Bilirubin NEGATIVE (Negative); Urine Blood Negative (Negative); Urine Clarity Turbid (Clear); Urine Color Light-Yellow (Yellow); Urine Culture Reflex Order NOT NEEDED; Urine Glucose NEGATIVE (Negative); Urine Ketones TRACE (Negative); Urine Microscopic Reflex YN ORDER UMIC; Urine Mucus Slight /HPF (None Seen); Urine Nitrite NEGATIVE (Negative); Urine Protein NEGATIVE (Negative); Urine RBC <5 /HPF (None Seen); Urine Urobilinogen Normal (Normal); Urine WBC <5 /HPF (<5); Urine pH 6.5 (5.0-7.0)
[2023-06-12 15:26] LABS: Anion Gap 4.6 mEq/L (5.0-15.0); Potassium 3.6 mEq/L (3.5-5.1)
[2023-06-12] MEDS ORDERED: NA CHLORIDE 0.9% 1,000 ML ONE (15:44)
--- NOTE | 2023-06-12 16:00 | RAD REPORT ---
EXAM DESCRIPTION: CT - Stone Protocol - 06/12/2023 3:46 pm CLINICAL HISTORY: Flank pain. FLANK PAIN COMPARISON: Abdomen Pelvis Wo Contrast dated 09/06/2021 TECHNIQUE: Axial images were obtained without oral or IV contrast. Lack of contrast limits solid org an and vascular assessment. The [id number] spans the entirety of the system partially obscuring uppermost abdomen and lung bases. Coronal reformatted images were obtained and reviewed. All CT scans are performed using dose optimization technique as appropriate and may include automated exposure control or mA/KV adjustment according to patient size. FINDINGS: The lower lung badillo are clear. Imaged portions of the liver and spleen show no suspicious findings on non-contrast imaging. The panc reas and adrenal glands are normal. No pathologic lymphadenopathy in the abdomen or pelvis. No urinary tract stones or obstructive uropathy. No bowel obstruction, free air, free fluid or abscess. Significant fecal retention colon.The appendix is not identified as a discrete structure, however, no secondary findings of appendicitis are identi fied. No significant bony abnormality. 5 cm left ovarian cyst. IMPRESSION: No urinary tract stones or obstructive uropathy. Moderate stool throughout the colon. 5 cm left ovarian cyst.
--- NOTE | 2023-06-12 16:23 | ER ---
Nurse's Notes [facility] Name: Jessica North Age: 23 yrs Sex: Female : 2000 Arrival Date: 06/12/2023 Time: 14:00 Bed 16 Private MD: Diagnosis: Flank pain;Other ovarian cysts Presentation: 06/11 14:16 Chief complaint: Patient states: having "kidney pain", hurts on both sides in the back ko1 but the left is more than the right. Coronavirus screen: At this time, the client does not indicate any symptoms associated with coronavirus-19. Ebola Screen: No symptoms or risks identified at this time. Initial Sepsis Screen: Does the patient meet any 2 criteria? No. Patient's initial sepsis screen is negative. Does the patient have a suspected source of infection? No. Patient's initial sepsis screen is negative. Risk Assessment: Do you want to hurt yourself or someone else? Patient reports no desire to harm self or others. Onset of symptoms was June 12, 2023. 14:16 Method Of Arrival: Ambulatory ko1 14:16 Acuity: DANYEL 3 ko1 Triage Assessment: 14:19 General: Appears in no apparent distress. uncomfortable, Behavior is calm, cooperative, ko1 appropriate for age. Pain: Complains of pain in left low back and right low back. Historical: - Allergies: 14:19 No Known Allergies; ko1 - Home Meds: 14:19 Prilosec Oral [Active]; ko1 - PMHx: 14:19 GERD; ko1 - PSHx: 14:19 None; ko1 - Immunization history:: Adult Immunizations unknown. - Infectious Disease History:: Denies. - Social history:: Smoking status: Patient denies any tobacco usage or history of. Screenin:05 [facility] ED Fall Risk Assessment (Adult) History of falling in the last 3 months, kn including since admission No falls in past 3 months (0 pts) Confusion or Disorientation No (0 pts) Intoxicated or Sedated No (0 pts) Impaired Gait No (0 pts) Mobility Assist Device Used No (0 pt) Altered Elimination No (0 pt) Score/Fall Risk Level 0 - 2 = Low Risk. Abuse screen: Denies threats or abuse. Nutritional screening: No deficits noted. Tuberculosis screening: No symptoms or risk factors identified. Assessment: 14:40 Reassessment: Patient appears in no apparent distress at this time. Patient is alert, kn oriented x 3, equal unlabored respirations, skin warm/dry/pink. pt ambulatory to room, c/c: bilat flank pain x few weeks, worse on L side. pt denies fever/no painful urination, no urgency. pt is AAOx4, in no acute distress, placed on bp cuff and pulse ox, vss, will continue to monitor pt. LMP: 2-3 weeks ago. General: Appears in no apparent distress. comfortable, well groomed, well developed, Behavior is calm, cooperative, appropriate for age. Pain: Complains of pain in back. Neuro: No deficits noted. Level of Consciousness is awake, alert, obeys commands, Oriented to person, place, time, situation, Appropriate for age. Cardiovascular: No deficits noted. Capillary refill < 3 seconds. Cardiovascular: Respiratory: No deficits noted. Airway is patent. GI: No deficits noted. Abdomen is SNT. : No deficits noted. Reports bilat flank pain, denies urinary symptoms, no fever. EENT: No deficits noted. 16:36 Reassessment: Patient appears in no apparent distress at this time. Patient is alert, kn oriented x 3, equal unlabored respirations, skin warm/dry/pink. Vital Signs: 14:16 BP 116 / 91; Pulse 92; Resp 14; Temp 97.1; Pulse Ox 98% ; ko1 14:40 BP 123 / 82; Pulse 90; Resp 18; Temp 97.7; Pulse Ox 100% ; Weight 68.04 kg; Height 5 kn ft. 8 in. ; 16:38 BP 126 / 74; Pulse 74; Resp 20; Pulse Ox 100% ; kn 14:40 Body Mass Index 22.81 (68.04 kg, 172.72 cm) ED Course: 14:02 Patient arrived in ED. mg5 14:03 Lia Britton FNP-C is [facility]. kb 14:03 Luis Rogers MD is Attending Physician. kb 14:19 Triage completed. ko1 14:19 Arm band placed on right wrist. Patient placed in an exam room, on a stretcher, on ko1 pulse oximetry, Patient notified of wait time. 14:25 Venessa Avina, DESIREE is Primary Nurse. ld1 14:46 No provider procedures requiring assistance completed. kn 15:01 Inserted saline lock: 20 gauge in right upper arm, using aseptic technique. Blood ld1 collected. 15:01 Test, Urine Sent. ld1 15:01 Urinalysis w/ reflexes Sent. ld1 15:01 Basic Metabolic Panel Sent. ld1 15:01 CBC with Diff Sent. ld1 15:05 Patient has correct armband on for positive identification. Bed in low position. Call kn light in reach. Side rails up X 1. Provided Education on: plan of care, lab work. pt verbalizes understanding.. 15:[address] via wheelchair. kn 15:47 CT Stone Protocol In Process Unspecified. EDMS 15:49 Patient moved back from [place]. kn 16:36 IV discontinued, intact, bleeding controlled, No redness/swelling at site. kn Administered Medications: 15:51 Drug: NS 0.9% IV 1000 ml IV at 1000 ml once Route: IV; Rate: 1000 ml; Site: left upper arm; 16:37 Follow up: IV Status: Completed infusion; IV Intake: 1000ml kn Medication: 16:36 VIS not applicable for this client. kn Intake: 16:37 IV: 1000ml; Total: 1000ml. kn Outcome: 16:22 Discharge ordered by . darius 16:36 Discharged to home ambulatory, with family, kn 16:36 Condition: stable 16:36 Discharge instructions given to patient, 16:38 Patient left the ED. kn Signatures: Dispatcher [employer] EDMS Lia Britton, RADIO ENGINEERING TEACHERNaveen RADIO ENGINEERING TEACHER-Venessa Riojas RN RN ld1 Marla Monahan, RN RN ko1 Camila Plasencia mg5 ELIO CEBALLOS RN RN kn
--- NOTE | 2023-06-12 16:23 | EDPHYS ---
Physician Documentation [facility] Name: Jessica North Age: 23 yrs Sex: Female : 2000 Arrival Date: 06/12/2023 Time: 14:00 Bed 16 Private MD: ED Physician Luis Rogers HPI: 06/11 14:39 This 23 yrs old Female presents to ER via Ambulatory with complaints of Kidney Problem. kb 14:39 Pt is a 23 year old female who presents for bilateral flank pain that is worse on the kb left that began 1-2 months ago and has gotten worse. Denies abd pain, n/v/d, urinary symptoms. States she takes prilosec daily so is concerned about her kindeys. Reports constant dull pain with no aggravating or alleviating symptoms. Historical: - Allergies: 14:19 No Known Allergies; ko1 - Home Meds: 14:19 Prilosec Oral [Active]; ko1 - PMHx: 14:19 GERD; ko1 - PSHx: 14:19 None; ko1 - Immunization history:: Adult Immunizations unknown. - Infectious Disease History:: Denies. - Social history:: Smoking status: Patient denies any tobacco usage or history of. ROS: 14:39 Constitutional: As per HPI kb Exam: 14:39 Constitutional: This is a well developed, well nourished patient who is awake, alert, kb and in no acute distress. Head/Face: Normocephalic, atraumatic. ENT: Moist Mucous membranes Cardiovascular: Regular rate Respiratory: Respirations even and unlabored. No increased work of breathing. Talking in full sentences Abdomen/GI: Soft, non-tender. No distention Back: No spinal tenderness. No costovertebral tenderness. Full range of motion. Skin: Warm, dry with normal turgor. Normal color. MS/ Extremity: Pulses equal, no cyanosis. Neurovascular intact. Full, normal range of motion. Neuro: Awake and alert, GCS 15, oriented to person, place, time, and situation. Moves all extremities. Normal gait. Vital Signs: 14:16 BP 116 / 91; Pulse 92; Resp 14; Temp 97.1; Pulse Ox 98% ; ko1 14:40 BP 123 / 82; Pulse 90; Resp 18; Temp 97.7; Pulse Ox 100% ; Weight 68.04 kg; Height 5 kn ft. 8 in. ; 16:38 BP 126 / 74; Pulse 74; Resp 20; Pulse Ox 100% ; kn 14:40 Body Mass Index 22.81 (68.04 kg, 172.72 cm) MDM: 14:03 Patient medically screened. kb 14:40 Data reviewed: vital signs, nurses notes. kb 16:21 Differential diagnosis: nephrolithiasis, pyelonephritis, UTI. Care significantly kb affected by the following Social Determinants of Health: Poor access to healthcare and/or lack of insurance. Counseling: I had a detailed discussion with the patient and/or guardian regarding the historical points, exam findings, and any diagnostic results supporting the discharge/admit diagnosis, lab results, radiology results, the need for outpatient follow up, a family practitioner, to return to the emergency department if symptoms worsen or persist or if there are any questions or concerns that arise at home. 06/11 14:23 Order name: CBC with Diff; Complete Time: 15:14 ko1 06/11 14:23 Order name: Basic Metabolic Panel; Complete Time: 15:39 ko1 06/11 14:23 Order name: Test, Urine; Complete Time: 15:20 ko1 06/11 14:23 Order name: Urinalysis w/ reflexes; Complete Time: 15:20 ko1 06/11 15:21 Order name: CT Stone Protocol; Complete Time: 16:09 kb 06/11 14:23 Order name: IV Start; Complete Time: 15:01 ko1 Administered Medications: 15:51 Drug: NS 0.9% IV 1000 ml IV at 1000 ml once Route: IV; Rate: 1000 ml; Site: left upper arm; 16:37 Follow up: IV Status: Completed infusion; IV Intake: 1000ml Disposition Summary: 06/12/23 16:22 Discharge Ordered Notes: Location: Home kb Condition: Stable kb Diagnosis - Flank pain kb - Other ovarian cysts kb Followup: kb - With: Emergency Department - When: As needed - Reason: Worsening of condition Followup: kb - With: Private Physician - When: 2 - 3 days - Reason: Recheck today's complaints, Continuance of care, Re-evaluation by your physician Discharge Instructions: - Discharge Summary Sheet kb - Ovarian Cyst, [id number] kb - Flank Pain, Adult, [id number] kb Forms: - Medication Reconciliation Form kb - Thank You Letter kb - Antibiotic Education kb - Prescription Opioid Use kb - Patient Portal Instructions kb - Leadership Thank You Letter kb Addendum: 06/14/2023 01:02 I was immediately available for consultation during this patient's visit. I did not e c2 personally see the patient or discuss the patient with the BULL. . Signatures: Dispatcher [employer] Lia Mcleod, FISHERIES DIRECTOR-C FISHERIES DIRECTOR-Marla Oconnor, RN RN ko1 Luis Rogers MD MD ec2 ELIO CEBALLOS RN RN kn Corrections: (The following items were deleted from the chart) 06/11 14:40 14:39 Pt is a 23 year old female who presents for bilateral flank pain that is worse on kb the left that began 1-2 months ago and has gotten worse. Denies abd pain, n/v/d, urinary symptoms. States she takes prilosec daily so is concerned about her kindeys. Reports constant dull pain. kb
[2023-06-12 23:06] VITALS: BP 126/74; TEMP 97.7; O2SAT 100
== END 2023-06-12 16:38 | disposition home or self-care (01) ==
LOC: ER 14:00
DX: N83.292 Other ovarian cyst, left side (principal)
CPT/HCPCS: 36415; 74176; 76377; 80048; 81001; 81025; 85025; J7030

== ENCOUNTER 2023-06-15 01:39 | Emergency (ER) | payer SELFPAY ==
--- NOTE | 2023-06-15 01:53 | EDPHYS ---
Physician Documentation [facility] Name: Jessica North Age: 23 yrs Sex: Female : 2000 Arrival Date: 06/15/2023 Time: 01:39 Bed Waiting Private MD: ED Physician Luis Rogers HPI: 06/14 01:53 This 23 yrs old Female presents to ER via Unassigned with complaints of Eye ec2 Pain, Eye Problem, Drainage From Eye. 01:53 Patient arrives today for evaluation of conjunctival discharge. Patient planing of eye ec2 irritation to the left eye. Onset 1 day. Patient reports no fevers or chills, no nausea or vomiting, denies any eye pain. Denies any difficulty with vision.. Historical: - Allergies: :54 No Known Allergies; jb4 - PMHx: :54 GERD; jb4 - PSHx: :54 None; jb4 - Immunization history:: Adult Immunizations unknown. - Infectious Disease History:: Denies. - Social history:: Smoking status: Patient denies any tobacco usage or history of. ROS: 01:53 Constitutional: as per hpi ec2 Exam: :53 Constitutional: GEN: NAD Head: atraumatic Eyes: EOMI Ears: External ears are normal. ec2 Left eye with significant conjunctival injection along with significant secretions, thick discharge appreciated. Good range of motion, no pain with range of motion, pupil is equal and responsive to light. CV: regular rate LUNGS: no respiratory distress ABD: non-distended SKIN: no evidence of rashes MSK: no evidence of trauma NEURO: moves all extremities equally Vital Signs: 01:53 BP 127 / 75; Pulse 106; Resp 16; Temp 98.6(TE); Pulse Ox 100% on R/A; Weight 68.04 kg; jb4 Height 5 ft. 8 in. (R); Pain 0/10; 01:53 Body Mass Index 22.81 (68.04 kg, 172.72 cm) jb4 01:53 Pain Scale: Adult jb4 MDM: 01:48 Patient medically screened. ec2 01:53 Data reviewed: vital signs. ED course: Patient arrives today for evaluation of ec2 conjunctival injection. Examination remarkable for eye findings as above. Will start the patient on erythromycin ointment. Patient does not wear contact lenses. Will discharge home. Return precautions given. Patient otherwise well-appearing no acute distress and nontoxic-appearing. Doubt orbital cellulitis, doubt intracranial process. Accordingly will defer any lab work or CT imaging of the face or head.. Administered Medications: No medications were administered Disposition Summary: 06/15/23 01:52 Discharge Ordered Notes: Location: Home ec2 Condition: Stable ec2 Diagnosis - Unspecified conjunctivitis ec2 Followup: ec2 - With: Private Physician - When: - Reason: Re-evaluation by your physician Discharge Instructions: - Discharge Summary Sheet ec2 - Bacterial Conjunctivitis, Adult, [id number] ec2 Forms: - Work release form ec2 - Medication Reconciliation Form ec2 - Thank You Letter ec2 - Antibiotic Education ec2 - Prescription Opioid Use ec2 - Patient Portal Instructions ec2 - Leadership Thank You Letter ec2 Prescriptions: - Erythromycin 5 mg/gram (0.5 %) Ophthalmic ointment - apply 1 centimeter OPHTHALMIC route 2-3 times daily for 7 days; 1 unit; ec2 Refills: 0, Product Selection Permitted Signatures: Shahid Morrell RN RN jb4 Luis Rogers MD MD ec2 Corrections: (The following items were deleted from the chart) 01:55 01:54 PSHx: Unable to Obtain; leticia jbBrendan
--- NOTE | 2023-06-15 02:01 | ER ---
Nurse's Notes [facility] Name: Jessica North Age: 23 yrs Sex: Female : 2000 Arrival Date: 06/15/2023 Time: 01:39 Bed Waiting Private MD: Diagnosis: Unspecified conjunctivitis Presentation: 06/14 01:53 Chief complaint: Patient states: I have an eye infection in my left eye and noticed jb4 white drainage from it a few hours ago. Coronavirus screen: At this time, the client does not indicate any symptoms associated with coronavirus-19. Ebola Screen: No symptoms or risks identified at this time. Mechanism of Injury: No Mechanism of Injury. The patient denies any loss of vision. Initial Sepsis Screen: Does the patient meet any 2 criteria? HR > 90 bpm. Yes Does the patient have a suspected source of infection? No. Patient's initial sepsis screen is negative. Risk Assessment: Do you want to hurt yourself or someone else? Patient reports no desire to harm self or others. Onset of symptoms was June 15, 2023. Transition of care: patient was not received from another setting of care. 01:53 Method Of Arrival: Ambulatory jb4 01:53 Acuity: DANYEL 4 jb4 Triage Assessment: 01:54 General: Appears in no apparent distress. comfortable, Behavior is calm, cooperative, jb4 appropriate for age. Pain: Denies pain. EENT: Eyes are tearing on inner aspect of conjunctiva of left eye Sclera/Cornea are reddened in outer aspect of conjuctiva of left eye, iris of left eye and inner aspect of conjunctiva of left eye. Neuro: Level of Consciousness is awake, alert, obeys commands, Oriented to person, place, time, situation. Cardiovascular: Patient's skin is warm and dry. Respiratory: Airway is patent Respiratory effort is even, unlabored, Respiratory pattern is regular, symmetrical. Derm: Skin is intact, Skin is pink, warm \T\ dry. Historical: - Allergies: 01:54 No Known Allergies; jb4 - PMHx: 01:54 GERD; jb4 - PSHx: 01:54 None; jb4 - Immunization history:: Adult Immunizations unknown. - Infectious Disease History:: Denies. - Social history:: Smoking status: Patient denies any tobacco usage or history of. Screenin:[facility] Fall Risk Assessment (Adult) History of falling in the last 3 months, jb4 including since admission No falls in past 3 months (0 pts) Confusion or Disorientation No (0 pts) Intoxicated or Sedated No (0 pts) Impaired Gait No (0 pts) Mobility Assist Device Used No (0 pt) Altered Elimination No (0 pt) Score/Fall Risk Level 0 - 2 = Low Risk Oriented to surroundings, Maintained a safe environment. Abuse screen: Denies threats or abuse. Nutritional screening: No deficits noted. Tuberculosis screening: No symptoms or risk factors identified. Assessment: 01:58 Reassessment: see triage note. jb4 Vital Signs: 01:53 BP 127 / 75; Pulse 106; Resp 16; Temp 98.6(TE); Pulse Ox 100% on R/A; Weight 68.04 kg; jb4 Height 5 ft. 8 in. (R); Pain 0/10; 01:53 Body Mass Index 22.81 (68.04 kg, 172.72 cm) jb4 01:53 Pain Scale: Adult jb4 ED Course: 01:42 Patient arrived in ED. jj6 01:48 Luis Rogers MD is Attending Physician. ec2 01:54 Triage completed. jb4 01:54 Arm band placed on right wrist. jb4 01:58 Patient has correct armband on for positive identification. Provided Education on: jb4 discharge instructions. 01:59 No provider procedures requiring assistance completed. Patient did not have IV access jb4 during this emergency room visit. 02:00 Luis Rogers MD is Attending Physician. jb4 Administered Medications: No medications were administered Medication: :58 VIS not applicable for this client. jb4 Outcome: 01:52 Discharge ordered by . ec2 01:58 Discharged to home ambulatory, jb4 01:58 Condition: stable 01:58 Discharge instructions given to patient, Instructed on discharge instructions, follow up and referral plans. medication usage, Demonstrated understanding of instructions, follow-up care, medications, Prescriptions given X 1, 02:00 Patient left the ED. jb4 Signatures: Shahid Morrell, RN RN jb4 Debi Saucedo jj6 Luis Rogers MD MD ec2 Corrections: (The following items were deleted from the chart) 01:55 01:54 PSHx: Unable to Obtain; jb4 jb4 01:58 01:53 BP 127 / 75; Pulse 106bpm; Resp 16bpm; Pulse Ox 100% RA; 68.04 kg; Height 5 ft. 8 jb4 in. Reported; BMI: 22.8; Pain 0/10, Adult; jb4
[2023-06-15 02:28] VITALS: BP 127/75; TEMP 98.6; O2SAT 100
== END 2023-06-15 02:00 | disposition home or self-care (01) ==
LOC: ER 01:39
DX: H10.9 Unspecified conjunctivitis (principal)
CPT/HCPCS: 99283

== ENCOUNTER 2023-11-06 00:09 | Emergency (ER) | payer SELFPAY ==
--- OUTSIDE RECORDS SUMMARY | 2023-11-06 00:14 | XMS REPORT | Continuity of Care Document ---
Author Name Unknown Address [address] [facility] [address] [place] [address] [facility] thconnect Address [address] [facility] [address] [facility] 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 And Former Name Role Phone Estefania Wilkins Primary Care Physician KARMEN ESPINOZA Attending Clinician Unavailable KARMEN ESPINOZA Attending Clinician Unavailable MEGAN BOYER Attending Clinician Unavailable Brian DIRECTOR OF MARKETINGMegan Attending Clinician [phone] KARMEN ESPINOZA Admitting Clinician Unavailable MEGAN BOYER Admitting Clinician Unavailable TRISTEN LEON Admitting Clinician Unavailable Problems Condition Name Condition Details Condition Category Status Onset Date Resolution Date Last Treatment Date Treating Clinician Comments Source No known active problems No known active problems Disease [facility] Allergies, Adverse Reactions, Alerts Allergy Name Allergy Type Status Severity Reaction(s) Onset Date Inactive Date Treating Clinician Comments Source none (Not Checked) Propensi ty to adverse reaction to drug Active 07-16 00:00: 00 Anthony Gross NO KNOWN ALLERGIE S Drug Class Active [facility] Social History Social Habit Start Date Stop Date Quantity Comments Source Sexual orientation [facility] Exposure to SARS-CoV-2 (event) 2021-10-02 00:00:00 2021-10-12 14:20:00 Not sure [facility] Sex assigned at 2000 00:00:00 2000 00:00:00 [facility] Smoking Status Start Date Stop Date Source Tobacco smoking consumption unknown [facility] Medications Ordered Medication Name Filled Medication Name Start Date Stop Date Current Medication? Ordering Clinician Indication Dosage Frequency Signature (SIG) Comments Components Source sulfamethox azole 800 mg-trimetho prim 160 mg tablet 07-30 00:00: 00 Yes 1mg Anthony Gross aspirin chewable tablet 324 mg 07-21 14:00: 00 Yes 324mg 324 mg, Oral, DAILY, First dose on Sat07/22/23 at 0900, Until Discontinu ed, Routine [facility] diphenhydrA MINE:lidoca ine 2% viscous:maa lox 1:1:1 (FIRST-MOUT HWASH BLM) oral suspension 15 mL 07-21 02:30: 00 07-21 02:25 :00 No 15mL 15 mL, Oral, ONCE, 1 dose, On Sat07/21/23 at 2130, Routine [facility] omeprazole 20 mg tablet 07-20 00:00: 00 08-20 04:59 :00 No [id number] 20mg Take 1 tablet by mouth in the morning for 30 days. [facility] nitrofurant oin macrocrysta l 100 mg capsule 07-16 00:00: 00 Yes 1mg Anthony Gross APPLY 1 CENTIMETER TO EYE 2-3 TIMES DAILY FOR 7 DAYS 06-14 00:00: 00 Yes Anthony Gross No known medications 10-12 14:33: 12 No No known medication s [facility] Vital Signs Vital Name Observation Time Observation Value Comments Drew rangel Systolic blood pressure 2023-07-22 04:04:11 108 mm[Hg] [facility] Diastolic blood pressure 2023-07-22 04:04:11 67 mm[Hg] [facility] Heart rate 2023-07-22 04:04:11 78 /min [facility] Body temperature 2023-07-22 04:04:11 36.89 Radha [facility] Respiratory rate 2023-07-22 04:04:11 18 /min [facility] Oxygen saturation in Arterial blood by Pulse oximetry 2023-07-22 04:04:11 100 /min [facility] Body height 2023-07-22 02:14:00 170.2 cm [facility] hospital Body weight 2023-07-22 02:14:00 79.017 kg [facility] acute hospital BMI 2023-07-22 02:14:00 27.28 kg/m2 [facility] acute hospital Systolic blood pressure 2023-07-11 07:56:14 111 mm[Hg] [facility] Diastolic blood pressure 2023-07-11 07:56:14 89 mm[Hg] [facility] Heart rate 2023-07-11 07:56:14 89 /min [facility] Oxygen saturation in Arterial blood by Pulse oximetry 2023-07-11 07:56:14 99 /min [facility] Body temperature 2023-07-11 07:52:00 36.83 Radha [facility] Respiratory rate 2023-07-11 07:52:00 20 /min [facility] Body height 2023-07-11 04:55:00 167.6 cm [facility] acute hospital Body weight 2023-07-11 04:55:00 79.47 kg [facility] acute hospital BMI 2023-07-11 04:55:00 28.28 kg/m2 [facility] acute hospital Systolic blood pressure 2021-10-12 22:00:00 107 mm[Hg] [facility] Diastolic blood pressure 2021-10-12 22:00:00 70 mm[Hg] [facility] Heart rate 2021-10-12 22:00:00 73 /min [facility] Respiratory rate 2021-10-12 22:00:00 16 /min [facility] Oxygen saturation in Arterial blood by Pulse oximetry 2021-10-12 22:00:00 99 /min [facility] Body temperature 2021-10-12 19:24:00 36.67 Radha [facility] Body height 2021-10-12 19:24:00 167.6 cm [facility] Body weight 2021-10-12 19:24:00 67.586 kg [facility] acute hospital BMI 2021-10-12 19:24:00 24.05 kg/m2 [facility] BP Systolic 2023-08-19 15:21:00 119 mm[Hg] Step hen F Renato BP Diastolic 2023-08-19 15:21:00 72 mm[Hg] Que phen F Renato Weight Measured 2023-08-19 15:21:00 179.80 pounds Anthony F Renato Height Measured 2023-08-19 15:21:00 66.00 inches Anthony F Renato Body Temperature 2023-08-19 15:21:00 98.00 degrees Anthony F Renato Heart Rate 2023-08-19 15:21:00 98.00 /min Lillie en F Renato Respiratory Rate 2023-08-19 15:21:00 19.00 /min Anthony F Renato BP Systolic 2023-07-31 11:40:00 Step hen F Renato BP Diastolic 2023-07-31 11:40:00 Que phen F Renato Weight Measured 2023-07-31 11:40:00 176.00 pounds Anthony F Renato Height Measured 2023-07-31 11:40:00 66.00 inches Anthony F Renato Body Temperature 2023-07-31 11:40:00 Anthony F Renato Heart Rate 2023-07-31 11:40:00 Lillie en F Renato Respiratory Rate 2023-07-31 11:40:00 Anthony F Renato Height Measured 2023-07-17 13:12:00 66.00 inches Anthony F Renato Body Temperature 2023-07-17 13:12:00 97.80 degrees Anthony F Renato Heart Rate 2023-07-17 13:12:00 90.00 /min Lillie en F Renato Respiratory Rate 2023-07-17 13:12:00 18.00 /min Anthony F Renato BP Systolic 2023-07-17 13:12:00 110 mm[Hg] Step hen F Renato BP Diastolic 2023-07-17 13:12:00 72 mm[Hg] Que phen F Renato Weight Measured 2023-07-17 13:12:00 172.40 pounds Anthony F Renato BP Systolic 2023-06-25 15:54:00 120 mm[Hg] Nathaniel Gross BP Diastolic 2023-06-25 15:54:00 84 mm[Hg] Que Gross Weight Measured 2023-06-25 15:54:00 171.00 pounds Anthony Gross Height Measured 2023-06-25 15:54:00 66.00 inches Anthony Gross Body Temperature 2023-06-25 15:54:00 98.40 degrees Anthony Gross Heart Rate 2023-06-25 15:54:00 103.00 /min Nathaniel Gross Respiratory Rate 2023-06-25 15:54:00 18.00 /min Anthony Gross Procedures Procedure Date / Time Performed Performing Clinician Source XR CHEST 1 VW 2023-07-22 02:45:59 Alexis [facility] POCT TEST 2023-07-22 02:39:00 Viviane Espinoza [facility] TROPONIN I 2023-07-22 02:26:00 Karmen Espinoza [facility] COMP. METABOLIC PANEL ([id number]) 2023-07-22 02:26[facility]00 [facility] 2023-07-22 02:26:00 [facility] LIPASE 2023-07-11 06:47:00 Megan Boyer [facility] acute hospital COMP. METABOLIC PANEL ([id number]) 2023-07-11 06:47:00 Megan Boyer [facility] CBC WITH DIFF 2023-07-11 06:47:00 Megan Boyer [facility] POCT TEST 2023-07-11 05:16:00 Megan Boyer [facility] URINALYSIS 2023-07-11 05:15:00 Megan Boyer [facility] [id number] Ultrasound, Retroperitoneal (eg, Renal, Aorta, Nodes), Real Time With Image Documentation; Complete 2023-07-10 00:00:00 Anthony Barrera Renato XR CHEST 1 VW 2021-10-12 20:05:02 Megan Boyer [facility] POCT TEST 2021-10-12 20:03:00 Megan Boyer [facility] LIPASE 2021-10-12 20:01:00 Megan Boyer [facility] acute hospital TROPONIN I 2021-10-12 20:01:00 Megan Boyer [facility] acute hospital COMP. METABOLIC PANEL ([id number]) 2021-10-12 20:01:00 Megan Boyer [facility] CBC WITH DIFF 2021-10-12 20:01:00 Megan Boyer [facility] URINALYSIS 2021-10-12 20:01:00 Megan Boyer [facility] acute hospital URINE DRUG (IMMUNOASSAY) - COMPREHENSIVE DRUG SCREEN W/O REFLEX 2021-10-12 20:01:00 Megan Boyer [facility] HB ECG ROUTINE & RHYTHM STRIP 2021-10-12 19:54:11 Megan Boyer [facility] CONSENT/REFUSAL FOR DIAGNOSIS AND TREATMENT 2021-10-12 19:25:43 Doctor Unassigned, [place] [facility] Encounters Start Date/Time End Date/Time Encounter Type Admission Type Attending [facility] Facility Care Department Encounter ID Source 2023-08-19 15:20:37 2023-08-19 15:20:37 Outpatient [facility] [id number] Anthony Barrera Renato 2023-08-19 00:00:00 2023-08-19 00:00:00 Outpatient Visit [facility] [id number] Anthony Barrera Renato 2023-07-31 11:40:13 2023-07-31 11:40:13 Outpatient [facility] [id number] Anthony Barrera Renato 2023-07-31 00:00:00 2023-07-31 00:00:00 Outpatient Visit [facility] [id number] Anthony Barrera Renato 2023-07-21 21:18:00 2023-07-21 23:05:00 Emergency X ALEXIS, SALMIN ALEXIS, SALMIN [facility] [id number] [facility] 2023-07-21 21:18:00 2023-07-21 23:05:00 Emergency Karmen Espinoza [facility] [id number] [facility] 2023-07-17 13:12:11 2023-07-17 13:12:11 Outpatient [facility] [id number] Anthony Gross 2023-07-17 00:00:00 2023-07-17 00:00:00 Outpatient Visit [facility] [id number] Anthony Gross 2023-07-10 23:58:00 2023-07-11 02:59:00 Emergency [facility] [id number] [facility] 2023-07-10 23:58:00 2023-07-11 02:59:00 Emergency Megan Boyer [facility] [id number] [facility] 2023-07-10 11:03:31 2023-07-10 11:03:31 Outpatient [facility] [id number] Anthony Gross 2023-06-25 15:39:49 2023-06-25 15:39:49 Outpatient [facility] [id number] Anthony Gross 2023-06-25 00:00:00 2023-06-25 00:00:00 Outpatient Visit [facility] [id number] Anthony Gross 2021-10-12 14:25:00 2021-10-12 17:36:00 Emergency Megan Boyer [facility] [id number] 350.1.13.10 4.2.7.2.686 [id number] [facility] 2021-10-12 14:25:00 2021-10-12 17:36:00 Emergency X [facility] [id number] [facility] 2019-02-28 20:09:54 2019-02-28 21:56:00 Emergency [facility] [id number] [facility] Results Test Description Test Time Test Comments Results Result Co mments Source CULTURE, URINE 2023-08-22 11:50:53 SPECIMEN NUMBER: [id number] CULTURE, URINE SPECIMEN NUMBER: [id number] SOURCE: URINE REPORT STATUS: FINAL FINAL REPORT: 08/22/2023 <10,000 CFU/ML UROGENITAL ANDRE PRESENT NO COMMON PATHOGENS UNLESS OTHERWISE INDICATED, ALL TESTING PERFORMED AT [facility] [address] [place] [address] BUSINESS AREA DIRECTOR: NIKO MOSES M.D. CLIA NUMBER [id number] [facility] [place] [id number] Anthony Barrera [facility] CHEST 1 [id number] 03:51:18ORDERING PHYSICIAN: KARMEN ESPINOZA HISTORY: sob, cp TECHNIQUE: Chest radiograph(s), 1 view. COMPARISON: 10/12/2021 FINDINGS:Lines and tubes: None. Mediastinum: Cardiomediastinal silhouette is within normal limits. Lungs and pleura: No consolidation, pleural effusion, or pneumothorax. Bones: No acuteabnormality.[facility] [id number] 03:15:19* Test Item Value Reference Range Interpretation Comme nts TROPONIN I (test code = 2560944103) 0.002 ng/mL <=0.034 STARR (test code = STARR) Reference (Normal) [...] to patient's use of biotin. Lab Interpretation (test code = 15680-5) Normal [facility]. METABOLIC PANEL ([id number])2023-07-22 03:04:17* Test Item Value Reference Range Interpretation Comme nts NA (test code = 4831933541) 141 mmol/L 135-145 K (test code = 1705322290) 3.6 mmol/L 3.5-5.0 CL (test code = 5932315518) 106 mmol/L 98-108 CO2 TOTAL (test code = 1667943988) 26 mmol/L 23-31 AGAP (test code = 8623790108) 9 2-16 BUN (test code = 7199919840) 9 mg/dL 7-23 GLUCOSE (test code = 2641737352) 76 mg/dL 70-110 CREATININE (test code = 2160-0) 0.56 mg/dL 0.50-1.04 TOTAL BILI (test code = 3133067962) 0.3 mg/dL 0.1-1.1 CALCIUM (test code = 7410311845) 9.2 mg/dL 8.6-10.6 T PROTEIN (test code = 5490699597) 7.5 g/dL 6.3-8.2 ALBUMIN (test code = 7734204408) 4.5 g/dL 3.5-5.0 ALK PHOS (test code = 2990029540) 78 U/L 34-122 ALTv (test code = 1742-6) 28 U/L 5-35 AST(SGOT) (test code = 1452345847) 27 U/L 13-40 eGFR (test code = 88584-5) 130.9 mL/min/1.73m2 CKD-EPI eGFR (20 21). Assuming creatinine has been stable day-to-day for at least three months, the eGFR indicates Category G1 (>= 90 mL/min/1.73 m2) [facility] WITH [id number] 02:52:19* Test Item Value Reference Range Interpretation Comme nts WBC (test code = 6690-2) 12.90 4.30-11.10 H RBC (test code = 789-8) 4.10 3.93-5.25 HGB (test code = 718-7) 11.6 g/dL 11.6-15.0 HCT (test code = 4544-3) 35.5 % 35.7-45.2 L MCV (test code = 787-2) 86.6 fL 80.6-95.5 MCH (test code = 785-6) 28.3 pg 25.9-32.8 MCHC (test code = 786-4) 32.7 g/dL 31.6-35.1 RDW-SD (test code = 60537-8) 41.5 fL 39.0-49.9 RDW-CV (test code = 788-0) 13.2 % 12.0-15.5 PLT (test code = 777-3) 253 166-358 MPV (test code = 88620-4) 11.3 fL 9.5-12.9 NRBC/100 WBC (test code = 8869988468) 0.0 0.0-10.0 NRBC x10^3 (test code = 5776491571) See_Comment [Automated messa ge] The system which generated this result transmitted reference range: 10*3/?L. The reference range was not used to interpret this result as normal/abnormal. GRAN MAT (NEUT) % (test code = 770-8) 67.9 % IMM GRAN % (test code = 4913957874) 0.40 % LYMPH % (test code = 736-9) 22.3 % MONO % (test code = 5905-5) 7.0 % EOS % (test code = 713-8) 1.8 % BASO % (test code = 706-2) 0.6 % GRAN MAT x10^3(ANC) (test code = 9100748922) 8.76 10*3/uL 1.88-7.09 H IMM GRAN x10^3 (test code = 4696408157) 0.05 10*3/uL 0.00-0.06 LYMPH x10^3 (test code = 731-0) 2.88 10*3/uL 1.32-3.29 MONO x10^3 (test code = 742-7) 0.90 10*3/uL 0.33-0.92 EOS x10^3 (test code = 711-2) 0.23 10*3/uL 0.03-0.39 BASO x10^3 (test code = 704-7) 0.08 10*3/uL 0.01-0.07 H Lab Interpretation (test code = 36641-9) Abnormal [facility] [id number] 02:39:00* Test Item Value Reference Range Interpretation Comme nts POCT PREG (test code = 1605) Negative On board controls acceptable with C Line (test code = 3574) Yes POCT PREG LOT # (test code = 3575) [id number] POCT PREG TEST DATE ( test code = 3576) [id number] Lab Interpretation (test cod e = 17052-6) Normal [facility]OLIC PAN[facility] ([id number])2023-07-11 07:20:36* Test Item Value Reference Range Interpretation Comme nts NA (test code = 6453482455) 139 mmol/L 135-145 K (test code = 2461532787) 3.8 mmol/L 3.5-5.0 CL (test code = 7827407610) 101 mmol/L 98-108 CO2 TOTAL (test code = 0179074189) 30 mmol/L 23-31 AGAP (test code = 2015340140) 8 2-16 BUN (test code = 0004671210) 7 mg/dL 7-23 GLUCOSE (test code = 4983738986) 100 mg/dL 70-110 CREATININE (test code = 2160-0) 0.82 mg/dL 0.50-1.04 TOTAL BILI (test code = 7391398417) 0.3 mg/dL 0.1-1.1 CALCIUM (test code = 3780923208) 9.6 mg/dL 8.6-10.6 T PROTEIN (test code = 0761575560) 7.9 g/dL 6.3-8.2 ALBUMIN (test code = 2268165256) 4.7 g/dL 3.5-5.0 ALK PHOS (test code = 1632723892) 109 U/L 34-122 ALTv (test code = 1742-6) 35 U/L 5-35 AST(SGOT) (test code = 3792309381) 33 U/L 13-40 eGFR (test code = 48975-4) 102.6 mL/min/1.73m2 CKD-EPI eGFR (20 21). Assuming creatinine has been stable day-to-day for at least three months, the eGFR indicates Category G1 (>= 90 mL/min/1.73 m2) [facility] 07:20:15* Test Item Value Reference Range Interpretation Comme nts LIPASE (test code = 2819806082) 68 U/L 0-220 Lab Interpretation (test cod e = 05462-4) Normal [facility] [id number] 07:06:15* Test Item Value Reference Range Interpretation Comme nts WBC (test code = 6690-2) 14.66 4.30-11.10 H RBC (test code = 789-8) 4.24 3.93-5.25 HGB (test code = 718-7) 12.0 g/dL 11.6-15.0 HCT (test code = 4544-3) 36.6 % 35.7-45.2 MCV (test code = 787-2) 86.3 fL 80.6-95.5 MCH (test code = 785-6) 28.3 pg 25.9-32.8 MCHC (test code = 786-4) 32.8 g/dL 31.6-35.1 RDW-SD (test code = 51512-9) 41.2 fL 39.0-49.9 RDW-CV (test code = 788-0) 13.3 % 12.0-15.5 PLT (test code = 777-3) 291 166-358 MPV (test code = 29516-7) 11.2 fL 9.5-12.9 NRBC/100 WBC (test code = 0120915918) 0.0 0.0-10.0 NRBC x10^3 (test code = 5333971848) See_Comment [Automated [employer] ge] The system which generated this result transmitted reference range: 10*3/?L. The reference range was not used to interpret this result as normal/abnormal. GRAN MAT (NEUT) % (test code = 770-8) 62.8 % IMM GRAN % (test code = 6640815886) 0.50 % LYMPH % (test code = 736-9) 25.6 % MONO % (test code = 5905-5) 8.1 % EOS % (test code = 713-8) 2.4 % BASO % (test code = 706-2) 0.6 % GRAN MAT x10^3(ANC) (test code = 8209330860) 9.19 10*3/uL 1.88-7.09 H IMM GRAN x10^3 (test code = 6494878873) 0.08 10*3/uL 0.00-0.06 H LYMPH x10^3 (test code = 731-0) 3.76 10*3/uL 1.32-3.29 H MONO x10^3 (test code = 742-7) 1.19 10*3/uL 0.33-0.92 H EOS x10^3 (test code = 711-2) 0.35 10*3/uL 0.03-0.39 BASO x10^3 (test code = 704-7) 0.09 10*3/uL 0.01-0.07 H Lab Interpretation (test code = 91743-1) Abnormal [facility] [id number] 05:16:00* Test Item Value Reference Range Interpretation Comme nts POCT PREG (test code = 1605) Negative On board controls acceptable with C Line (test code = 3574) Yes POCT PREG LOT # (test code = 3575) [id number] POCT PREG TEST DATE ( test code = 3576) 06/02/2024 Lab Interpretation (test cod e = 39679-6) Normal [facility], [id number] 00:00:00* Test Item Value Reference Range Interpretation Comme nts CULTURE, URINE (test code = 25852) SPECIMEN NUMBER: [id number] [facility], [id number] 00:00:00* Test Item Value Reference Range Interpretation Comme nts CULTURE, URINE (test code = 34672) SPECIMEN NUMBER: [id number] Anthony HopeLTGUERA, [id number] 00:00:00* Test Item Value Reference Range Interpretation Comme nts CULTURE, URINE (test code = 84236) SPECIMEN NUMBER: [id number] [facility]LT[facility], [id number] 00:00:00* Test Item Value Reference Range Interpretation Comme nts CULTURE, URINE (test code = 60320) SPECIMEN NUMBER: [id number] Anthony Arizmendi [id number] 20:52:10* Test Item Value Reference Range Interpretation Comments TROPONIN I (test code = 8394207418) 0.001 ng/mL See_Comment [Automated message] The system which generated this result transmitted reference range: <=0.034. The reference range was not used to interpret this result as normal/abnormal. STARR (test code = STARR) Reference (Normal) [...] to patient's use of biotin. Lab Interpretation (test code = 53655-8) Normal [facility]. METABOLIC PANEL (78639)2021-10-12 20:41:25* Test Item Value Reference Range Interpretation Comme nts NA (test code = 0893112917) 140 mmol/L 135-145 K (test code = 3611023985) 3.8 mmol/L 3.5-5 CL (test code = 3418243422) 105 mmol/L 98-108 CO2 TOTAL (test code = 4611826156) 26 mmol/L 23-31 AGAP (test code = 9792482964) 2-16 BUN (test code = 8336491726) 7 mg/dL 7-23 GLUCOSE (test code = 2727952787) 82 mg/dL 70-110 CREATININE (test code = 2183898133) 0.56 mg/dL 0.5-1.04 TOTAL BILI (test code = 1896076164) 0.4 mg/dL 0.1-1.1 CALCIUM (test code = 1623265472) 9.3 mg/dL 8.6-10.6 T PROTEIN (test code = 8173562938) 7.4 g/dL 6.3-8.2 ALBUMIN (test code = 9566997190) 5.0 g/dL 3.5-5 ALK PHOS (test code = 4349966924) 68 U/L 34-122 ALTv (test code = 1742-6) 21 U/L 5-35 AST(SGOT) (test code = 4866523291) 28 U/L 13-40 eGFR (test code = 1209983879) mL/min/1.73m2 STARR (test code = STARR) Association of [...] or urine or abnormalities in imaging tests). [facility] 20:40:50* Test Item Value Reference Range Interpretation Comme nts LIPASE (test code = 1746618525) 66 U/L 0-220 Lab Interpretation (test cod e = 98672-6) Normal [facility] [id number] 20:13:27* Test Item Value Reference Range Interpretation Comme nts WBC (test code = 6690-2) See_Comment [Automated messa ge] The system which generated this result transmitted reference range: 4.30 - 11.10 10*3/?L. The reference range was not used to interpret this result as normal/abnormal. RBC (test code = 789-8) See_Comment [Automated messa ge] The system which generated this result transmitted reference range: 3.93 - 5.25 10*6/?L. The reference range was not used to interpret this result as normal/abnormal. HGB (test code = 718-7) 13.1 g/dL 11.6-15 HCT (test code = 4544-3) 38.6 % 35.7-45.2 MCV (test code = 787-2) 85.4 fL 80.6-95.5 MCH (test code = 785-6) 29.0 pg 25.9-32.8 MCHC (test code = 786-4) 33.9 g/dL 31.6-35.1 RDW-SD (test code = 72897-2) 39.4 fL 39-49.9 RDW-CV (test code = 788-0) 12.9 % 12-15.5 PLT (test code = 777-3) See_Comment [Automated messa ge] The system which generated this result transmitted reference range: 166 - 358 10*3/?L. The reference range was not used to interpret this result as normal/abnormal. MPV (test code = 90465-5) 11.0 fL 9.5-12.9 NRBC/100 WBC (test code = 4998937532) See_Comment [Automated [employer] ssage] The system which generated this result transmitted reference range: 0.0 - 10.0 /100 WBCs. The reference range was not used to interpret this result as normal/abnormal. NRBC x10^3 (test code = 0560019224) See_Comment [Automated messa ge] The system which generated this result transmitted reference range: 10*3/?L. The reference range was not used to interpret this result as normal/abnormal. GRAN MAT (NEUT) % (test code = 770-8) 63.8 % IMM GRAN % (test code = 8246695238) 0.30 % LYMPH % (test code = 736-9) 24.2 % MONO % (test code = 5905-5) 8.9 % EOS % (test code = 713-8) 1.7 % BASO % (test code = 706-2) 1.1 % GRAN MAT x10^3(ANC) (test code = 0491369678) 5.69 10*3/uL 1.88-7.09 IMM GRAN x10^3 (test code = 1128357040) 0.03 10*3/uL 0-0.06 LYMPH x10^3 (test code = 731-0) 2.16 10*3/uL 1.32-3.29 MONO x10^3 (test code = 742-7) 0.79 10*3/uL 0.33-0.92 EOS x10^3 (test code = 711-2) 0.15 10*3/uL 0.03-0.39 BASO x10^3 (test code = 704-7) 0.10 10*3/uL 0.01-0.07 H Lab Interpretation (test code = 63940-9) [id number]:00* Test Item Value Reference Range Interpretation Comme nts POCT PREG (test code = 1605) negative On board controls acceptable with C Line (test code = 3574) Present POCT PREG LOT # (test code = 3575) [id number] POCT PREG TEST DATE ( test code = 3576) 01-24-2023 Lab Interpretation (test cod e = 22978-8) Normal [facility] Notes Date/Time Note Provider Source Anthony Stauffer [facility]2024-06-05 00:00:00 Anthony Stauffer [facility]2024-05-26 23:05:04 Pt given printed and verbal discharge instructions regarding chest pain and SOB (shortness of breath), encouraged hydration, 0 Prescriptions provided Pt verbalized understanding of instructions, pt awake alert oriented, resp reg unlabored, skin w/d, color appropriate for race, moves all ext well,pt encouraged to follow up with pcp an Advised to seek medical attention for new/prolonged/worsening of symptoms, Symptoms improved. PIV d'cd, dressing to site, catheter in tact. Awake, alert oriented, resp reg unlabored, skin w/d, pt leaving amb with steady gait, in no apparent distress, [facility] Dumont [id number] 21:13:20 CC: Pt reports yesterday or the day before she had a pain that was on the left side of her chest and up to her left jaw, lasting 1 minute. Pt states it lasted longer than her normal acid reflux pain. PMHx: GERD Awake, alert, oriented, resp reg unlabored, skin warm, color appropriate for race, moves all ext without difficulty, amb with steady gait Flaca Sosa [facility] [id number] 00:00:00 Anthony Stauffer [facility]2024-05-16 02:57:43 Pt given printed and verbal discharge instructions regarding dizziness and flank pain Pt verbalized understanding of instructions, pt awake alert oriented, resp reg unlabored, skin w/d, color appropriate for race, moves all ext well,pt encouraged to follow up with pcp Advised to seek medical attention for new/prolonged/worsening of symptoms, Awake, alert oriented, resp reg unlabored, skin w/d, pt leaving amb with steady gait, in no apparent distress, . Jarett Gómez [facility] [id number] 01:32:09 07/11/23 0015 07/11/23 0019 07/11/23 0022 Orthostatic Vitals BP (!) 125/93 119/85 122/89 BP Location Left arm Left arm Left arm Position Lying Sitting Standing Pulse 91 94 89 ilma [facility] - [id number] 23:48:23 Patient arrived ambulatory to ED c/o dizziness that started tonight. Patient was in [place] today for an Ultrasound of the kidneys but haven't got the results back yet. 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 Patient states getting blurry vision and patient feeling like they are spinning. Judith Medina [facility] - [id number] 00:00:00 Anthony Stauffer [facility]"
[2023-11-06 01:51] LABS: Barbiturates NEGATIVE (NEGATIVE); Benzodiazepines NEGATIVE (NEGATIVE); Cocaine NEGATIVE (NEGATIVE); METHAMPHETAM NEGATIVE (NEGATIVE); Methadone NEGATIVE (NEGATIVE); Opiates NEGATIVE (NEGATIVE); Phencyclidine NEGATIVE (NEGATIVE); THC Cannibis NEGATIVE (NEGATIVE)
[2023-11-06 02:12] LABS: Absolute Basophils 0.1 K/uL (0-0.5); Absolute Eosinophils 0.3 K/uL (0-0.5); Absolute Lymphocytes (CBC) 3.8 K/uL (0.7-4.9); Absolute Monocytes 1.2 K/uL (0.1-1.3); Absolute Neutrophil 11.4 K/uL (1.8-8.0); Basophils % 0.4 % (0-1.3); Eosinophils % 1.7 % (0-4.4); Hematocrit 35.6 % (36.0-45.0); Hemoglobin 11.8 g/dL (12.0-15.0); Lymphocytes % 22.9 % (15.3-44.8); MCH 26.9 pg (27.0-35.0); MCHC 33.2 g/dL (32.0-36.0); MCV 80.9 fL (80-100); MPV 9.6 fL (7.6-11.3); Platelets 269 thou/uL (152-406); Red Cell Distribution Width 14.6 % (12.1-15.2)
[2023-11-06 02:30] LABS: Anion Gap 8.5 mEq/L (5.0-15.0); BUN Blood Urea Nitrogen 13 mg/dL (7-18); Bicarbonate 24 mEq/L (21-32); Glomerular Filtration Rate 120 ml/min (=/>90); Glucose Level 88 mg/dL (74-106); Potassium 3.5 mEq/L (3.5-5.1); Sodium Level 136 mEq/L (136-145)
[2023-11-06 02:35] LABS: Troponin High Sensitivity < 3.0 pg/mL (<58.9)
--- NOTE | 2023-11-06 03:10 | ER ---
Nurse's Notes [facility] Name: Jessica North Age: 23 yrs Sex: Female : 2000 Arrival Date: 11/06/2023 Time: 00:09 Bed 14 Private MD: Diagnosis: Palpitations;Arrhythmia sinus Presentation: 11/05 00:27 Chief complaint: Patient states: heart palpitations. Coronavirus screen: At this time, kj2 the client does not indicate any symptoms associated with coronavirus-19. Ebola Screen: No symptoms or risks identified at this time. Initial Sepsis Screen: Does the patient meet any 2 criteria? No. Patient's initial sepsis screen is negative. Does the patient have a suspected source of infection? No. Patient's initial sepsis screen is negative. Risk Assessment: Do you want to hurt yourself or someone else? Patient reports no desire to harm self or others. Onset of symptoms was November 03, 2023. 00:27 Method Of Arrival: Ambulatory kj2 00:27 Acuity: DANYEL 3 kj2 Triage Assessment: 00:29 General: Appears in no apparent distress. comfortable, Behavior is calm, cooperative. kj2 Pain: Denies pain. Neuro: Level of Consciousness is awake, alert, obeys commands, Oriented to person, place, time. Cardiovascular: Patient's skin is warm and dry. Respiratory: Airway is patent Respiratory effort is even, unlabored. GI: No signs and/or symptoms were reported involving the gastrointestinal system. : No signs and/or symptoms were reported regarding the genitourinary system. 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 - Infectious Disease History:: Denies. - Social history:: Smoking status: Reported history of juuling and/or vaping. Screenin:35 [facility] ED Fall Risk Assessment (Adult) History of falling in the last 3 months, kj2 including since admission No falls in past 3 months (0 pts) Confusion or Disorientation No (0 pts) Intoxicated or Sedated No (0 pts) Impaired Gait No (0 pts) Mobility Assist Device Used No (0 pt) Altered Elimination No (0 pt) Score/Fall Risk Level. Abuse screen: Denies threats or abuse. Denies injuries from another. 00:35 Nutritional screening: No deficits noted. Tuberculosis screening: No symptoms or risk kj2 factors identified. Assessment: 00:32 General: see triage assessment. kj2 01:19 Reassessment: Patient appears in no apparent distress at this time. Patient and/or kj2 family updated on plan of care and expected duration. Pain level reassessed. Patient is alert, oriented x 3, equal unlabored respirations, skin warm/dry/pink. 02:22 Reassessment: Patient appears in no apparent distress at this time. Patient and/or kj2 family updated on plan of care and expected duration. Pain level reassessed. Patient is alert, oriented x 3, equal unlabored respirations, skin warm/dry/pink. 03:09 Reassessment: Patient appears in no apparent distress at this time. Patient and/or kj2 family updated on plan of care and expected duration. Pain level reassessed. Patient is alert, oriented x 3, equal unlabored respirations, skin warm/dry/pink. Vital Signs: 00:27 BP 112 / 58; Pulse 99; Resp 18; Temp 98.6; Pulse Ox 100% on R/A; Weight 81.65 kg; kj2 Height 5 ft. 7 in. ; Pain 0/10; 00:30 BP 112 / 58; Pulse 99; Resp 18; Temp 98.6; Pulse Ox 100% on R/A; Weight 81.65 kg; kj2 Height 5 ft. 7 in. ; Pain 0/10; 01:19 BP 110 / 70; Pulse 84; Resp 18; Pulse Ox 100% on R/A; kj2 02:23 BP 105 / 56; Pulse 91; Resp 18; Pulse Ox 100% on R/A; kj2 03:03 BP 105 / 72; Pulse 95; Resp 18; Temp 98.2; Pulse Ox 100% on R/A; kj2 00:30 Body Mass Index 28.19 (81.65 kg, 170.18 cm) kj2 00:27 Pain Scale: Adult kj2 00:30 Pain Scale: Adult kj2 ED Course: 00:13 Patient arrived in ED. gm2 00:21 [facility] kb 00:21 Miles Cancino MD is Attending Physician. kb 00:25 Cortney Aguilera, RN is Primary Nurse. kj2 00:29 Triage completed. kj2 00:31 Arm band placed on Patient placed in an exam room. kj2 00:32 Patient has correct armband on for positive identification. Placed in gown. Bed in low kj2 position. Call light in reach. 00:32 Provided Education on: call light. kj2 00:41 XRAY Chest (1 view) In Process Unspecified. EDMS 01:21 Inserted saline lock: 20 gauge in left antecubital area, using aseptic technique. Blood ha1 collected. Flushed with 10 mL NS Accessed peripheral vein via ultrasound, utilizing dynamic ultrasound technique. 01:23 Urine Drug Screen Sent. kj2 01:24 No provider procedures requiring assistance completed. kj2 03:04 Gilmar Real MD is Referral Physician. sp4 03:23 IV discontinued, intact, bleeding controlled, No redness/swelling at site. Pressure kj2 dressing applied. Administered Medications: No medications were administered Medication: 01:24 VIS not applicable for this client. kj2 Outcome: 03:10 Discharge ordered by . sp4 03:22 Discharged to home ambulatory, kj2 03:22 Condition: stable 03:22 Discharge instructions given to patient, Instructed on discharge instructions, follow up and referral plans. medication usage, Demonstrated understanding of instructions, follow-up care, medications, Prescriptions given X 1, 03:34 Patient left the ED. kj2 Signatures: Dispatcher [employer] EDWI Lia Britton FNP-C HORSERADISH MAKER-Ckb Jammie Garcia RN RN ha1 Miles Cancino MD MD sp4 Flora Melissa gm2 Cortney Aguilera, RN RN kj2 Corrections: (The following items were deleted from the chart) 01:22 01:21 Inserted saline lock: 20 gauge in left antecubital area, using aseptic technique. kj2 kj2 01:38 01:21 Inserted saline lock: 20 gauge in left antecubital area, using aseptic technique. ha1 Blood collected. Flushed with 10 mL NS kj2
--- NOTE | 2023-11-06 03:10 | EDPHYS ---
Physician Documentation [facility] Name: Jessica North Age: 23 yrs Sex: Female : 2000 Arrival Date: 11/06/2023 Time: 00:09 Bed 14 Private MD: ED Physician Miles Cancino HPI: 11/05 00:25 This 23 yrs old Female presents to ER via Unassigned with complaints of Palpitations. kb 00:25 Pt is a 23 year old female who presents for intermittent palpitations that started 3 kb days ago. States she has had palpitations every once in a while for years, but never lasting this long. States the most recent episode tonight lasted longer than any other episode. Denies shortness of breath. Denies any medical history. 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 - Infectious Disease History:: Denies. - Social history:: Smoking status: Reported history of juuling and/or vaping. ROS: 00:26 Constitutional: As per HPI kb Exam: 00:26 Constitutional: This is a well developed, well nourished patient who is awake, alert, kb and in no acute distress. Head/Face: Normocephalic, atraumatic. ENT: Moist Mucous membranes Cardiovascular: Regular rate Respiratory: Respirations even and unlabored. No increased work of breathing. Talking in full sentences Abdomen/GI: Soft, non-tender. No distention Skin: Warm, dry with normal turgor. Normal color. MS/ Extremity: Pulses equal, no cyanosis. Neurovascular intact. Full, normal range of motion. Neuro: Awake and alert, GCS 15, oriented to person, place, time, and situation. Moves all extremities. Normal gait. 00:49 ECG was reviewed by the Attending Physician. kb 03:13 Constitutional: This is a well developed, well nourished patient who is awake, alert, sp4 and in no acute distress. Head/Face: Normocephalic, atraumatic. Eyes: Pupils equal round and reactive to light, extra-ocular motions intact. Lids and lashes normal. Conjunctiva and sclera are not injected. Cornea within normal limits. Periorbital areas with no swelling, redness, or edema. ENT: Nares patent. No nasal discharge, no septal abnormalities noted. Tympanic membranes are normal and external auditory canals are clear. Oropharynx with no redness, swelling, or masses, exudates, or evidence of obstruction, uvula midline. Mucous membranes moist. Neck: Trachea midline, no thyromegaly or masses palpated, and no cervical lymphadenopathy. Supple, full range of motion without nuchal rigidity, or vertebral point tenderness. Chest/axilla: Normal chest wall appearance and motion. Nontender with no deformity. No lesions are appreciated. Cardiovascular: Regular rate and rhythm with a normal S1 and S2. No gallops, murmurs, or rubs. Normal PMI, no JVD. No pulse deficits. Respiratory: Lungs have equal breath sounds bilaterally, clear to auscultation and percussion. No rales, rhonchi or wheezes noted. No increased work of breathing, no retractions or nasal flaring. Abdomen/GI: Soft, with normal bowel sounds. No distension or tympany. No guarding or rebound. No evidence of tenderness throughout. Back: No spinal tenderness. No costovertebral tenderness. Skin: Warm, dry with normal turgor. Normal color with no rashes, no lesions, and no evidence of cellulitis. MS/ Extremity: Pulses equal, no cyanosis. Neurovascular intact. Full, normal range of motion. Neuro: Awake and alert, GCS 15, oriented to person, place, time, and situation. Cranial nerves II-XII grossly intact. Motor strength 5/5 in all extremities. Sensory grossly intact. Psych: Awake, alert, with orientation to person, place and time. Behavior, mood, and affect are within normal limits Vital Signs: 00:27 BP 112 / 58; Pulse 99; Resp 18; Temp 98.6; Pulse Ox 100% on R/A; Weight 81.65 kg; kj2 Height 5 ft. 7 in. ; Pain 0/10; 00:30 BP 112 / 58; Pulse 99; Resp 18; Temp 98.6; Pulse Ox 100% on R/A; Weight 81.65 kg; kj2 Height 5 ft. 7 in. ; Pain 0/10; 01:19 BP 110 / 70; Pulse 84; Resp 18; Pulse Ox 100% on R/A; kj2 02:23 BP 105 / 56; Pulse 91; Resp 18; Pulse Ox 100% on R/A; kj2 03:03 BP 105 / 72; Pulse 95; Resp 18; Temp 98.2; Pulse Ox 100% on R/A; kj2 00:30 Body Mass Index 28.19 (81.65 kg, 170.18 cm) kj2 00:27 Pain Scale: Adult kj2 00:30 Pain Scale: Adult kj2 MDM: 00:21 Patient medically screened. kb 00:26 Differential diagnosis: arrythmia, dehydration, stress disorder. Data reviewed: vital kb signs, nurses notes. Scoring Tools PERC Rule for PE Age >/= 50 No HR >/= 100 No O2 Sat Room Air < 95% No Unilateral leg swelling No Hemoptysis No Recent surgery or trauma </= 4 wks ago requiring treatment with general anesthesia No (0 pt) Prior PE or DVT No. 00:49 Transition of care: After a detail discussion of the patient's case, care is kb transferred to Miles Cancino MD. 03:13 LUNA Risk Score: Not Applicable. ED course: No significant abnormality discovered on sp4 workup. Patient has persistently elevated WBC. She is stable for discharge home. 11/05 00:25 Order name: Basic Metabolic Panel; Complete Time: 02:50 kb 11/05 00:25 Order name: CBC with Diff; Complete Time: 02:50 kb 11/05 00:25 Order name: Troponin HS; Complete Time: 02:50 kb 11/05 00:25 Order name: TSH; Complete Time: 02:50 kb 11/05 00:52 Order name: Urine Drug Screen; Complete Time: 02:50 kmf 11/05 00:25 Order name: XRAY Chest (1 view) kb 11/05 00:25 Order name: EKG; Complete Time: 00:25 kb 11/05 00:25 Order name: Cardiac monitoring; Complete Time: 01:04 kb 11/05 00:25 Order name: EKG - Nurse/Tech; Complete Time: 01:04 kb 11/05 00:25 Order name: IV Saline Lock; Complete Time: 01:19 kb 11/05 00:25 Order name: Labs collected and sent; Complete Time: 01:19 kb 11/05 00:25 Order name: O2 Per Protocol; Complete Time: 01:04 kb 11/05 00:25 Order name: O2 Sat Monitoring; Complete Time: 01:04 kb EC:49 Rate is 82 beats/min. Rhythm is regular. QRS [place] is Normal. PA interval is normal at kb 152 msec. QRS interval is normal at 86 msec. QT interval is normal at 460 msec. Administered Medications: No medications were administered Disposition: 03:03 Co-signature as Attending Physician, Miles Cancino MD I agree with the assessment sp4 and plan of care. I reviewed the patient's care provided by Advanced Practice Provider \T\ agree w/ the diagnosis \T\ care plan. I personally saw the pt \T\ performed a substantive portion of the visit, incldng all aspects of the (History/Exam/Medical Decision Making). Disposition Summary: 11/06/23 03:10 Discharge Ordered Notes: Location: Home sp4 Problem: new sp4 Symptoms: have improved sp4 Condition: Stable sp4 Diagnosis - Palpitations sp4 - Arrhythmia sinus sp4 Followup: sp4 - With: Gilmar Real MD - When: 7 - 10 days - Reason: Recheck today's complaints Discharge Instructions: - Discharge Summary Sheet sp4 - Palpitations sp4 Forms: - Patient Portal Instructions sp4 Prescriptions: - Propranolol 20 mg Oral tablet - take 1 tablet ORAL route every 8 hours PRN palpitations; 60 tablet; Refills: 0, sp4 Product Selection Permitted Signatures: Dispatcher [employer] EDVA Lia Britton, NICOLE-C NICOLE-Miles Santillan MD MD sp4 Cortney Aguilera RN RN kj2 Corrections: (The following items were deleted from the chart) 03:12 03:03 Co-signature as Attending Physician, Gilmar Real MD I agree with the assessment sp4 and plan of care. I reviewed the patient's care provided by Advanced Practice Provider \T\ agree w/ the diagnosis \T\ care plan. I personally saw the pt \T\ performed a substantive portion of the visit, incldng all aspects of the (History/Exam/Medical Decision Making). sp4
[2023-11-06 03:50] VITALS: BP 112/58; TEMP 98.6; O2SAT 100
--- NOTE | 2023-11-06 12:25 | RAD REPORT ---
EXAM DESCRIPTION: XR CHEST 1 VIEW CLINICAL HISTORY: PALPITATIONS COMPARISON: None FINDINGS: Cardiac silhouette is within normal limits. There is no focal parenchymal or pleural disea se. There is no acute osseous process visualized. IMPRESSION: No evidence of acute cardiopulmonary disease. Electronically signed by: Osmany Rodrigez MD 11/06/2023 12:53 AM CDT RP Due to temporary technical issues with the PACS/Fluency reporting system, reports are being signed by the in house radiologist without review as a courtesy to ensure prompt reporting. The interpreting r adiologist is fully responsible for the content of the report.
--- NOTE | 2023-11-07 16:26 | EKG ---
Test Date: 2023-11-06 Test Time: 00:46:33 [employer] Secretary: [facility] MEASUREMENT RESULTS: Intervals: Rate: 82 ME: 152 QRSD: 86 QT: 394 QTc: 460 Sunset: P: 47 ME: 152 QRS: 66 T: 67 INTERPRETIVE STATEMENTS: Normal sinus rhythm Septal infarct, age undetermined Abnormal ECG Compared to ECG 06/06/2023 23:35:28 Myocardial infarct finding now present Sinus arrhythmia no longer present Electronically Signed On 11-07-23 16:22:48 CDT by Thomas Dawn
== END 2023-11-06 03:34 | disposition home or self-care (01) ==
LOC: ER 00:09
DX: I49.8 Other specified cardiac arrhythmias (principal)
CPT/HCPCS: 36415; 71045; 80048; 80307; 84443; 84484; 85025; 93005; 99284

== ENCOUNTER 2024-07-19 18:41 | Emergency (ER) | payer SELFPAY ==
--- OUTSIDE RECORDS SUMMARY | 2024-07-19 18:45 | XMS REPORT | Continuity of Care Document ---
Author Name Unknown Address [address] [facility] [address] [place] [address] [facility] [place] Address [address] [facility] [address] [place] [address] Care Team Providers Care Summer School Coordinator Name Role Phone Estefania Wilkins Primary Care Physician KARMEN ESPINOZA Attending Clinician Unavailable KARMEN ESPINOZA Attending Clinician Unavailable MEGAN BOYER Attending Clinician Unavailable Brian VISITING TEACHERMegan Attending Clinician [phone] KARMEN ESPINOZA Admitting Clinician Unavailable MEGAN BOYER Admitting Clinician Unavailable TRISTEN LEON Admitting Clinician Unavailable Problems Condition Name Condition Details Condition Category Status Onset Date Resolution Date Last Treatment Date Treating Clinician Comments Source No known active problems No known active problems Disease [facility] Allergies, Adverse Reactions, Alerts Allergy Name Allergy Type Status Severity Reaction(s) Onset Date Inactive Date Treating Clinician Comments Source none (Not Checked) Propensi ty to adverse reaction to drug Active 07-16 00:00: 00 Anthony Gross NO KNOWN ALLERGIE S Drug Class Active [facility] Social History Social Habit Start Date Stop Date Quantity Comments Source Sexual orientation U [facility] Exposure to SARS-CoV-2 (event) 2021-10-02 00:00:00 2021-10-12 14:20:00 Not sure [facility] Sex assigned at 2000 00:00:00 2000 00:00:00 [facility] Smoking Status Start Date Stop Date Source Tobacco smoking consumption unknown [facility] Medications Ordered Medication Name Filled Medication Name Start Date Stop Date Current Medication? Ordering Clinician Indication Dosage Frequency Signature (SIG) Comments Components Source sulfamethox azole 800 mg-trimetho prim 160 mg tablet 07-30 00:00: 00 Yes 1mg Anthony Gross aspirin chewable tablet 324 mg 07-21 14:00: 00 Yes 324mg 324 mg, Oral, DAILY, First dose on Sat07/22/23 at 0900, Until Discontinu ed, Routine [facility] diphenhydrA MINE:lidoca ine 2% viscous:maa lox 1:1:1 (FIRST-MOUT HWASH BLM) oral suspension 15 mL 07-21 02:30: 00 07-21 02:25 :00 No 15mL 15 mL, Oral, ONCE, 1 dose, On Sat07/21/23 at 2130, Routine [facility] omeprazole 20 mg tablet 07-20 00:00: 00 08-20 04:59 :00 No [id number] 20mg Take 1 tablet by mouth in the morning for 30 days. [facility] nitrofurant oin macrocrysta l 100 mg capsule 07-16 00:00: 00 Yes 1mg Anthony Gross APPLY 1 CENTIMETER TO EYE 2-3 TIMES DAILY FOR 7 DAYS 06-14 00:00: 00 Yes Anthony Holly Gross No known medications 10-12 14:33: 12 No No known medication s [facility] Vital Signs Vital Name Observation Time Observation Value Comments S juan carlos Systolic blood pressure 2023-07-22 04:04:11 108 mm[Hg] [facility] Diastolic blood pressure 2023-07-22 04:04:11 67 mm[Hg] [facility] Heart rate 2023-07-22 04:04:11 78 /min [facility] Body temperature 2023-07-22 04:04:11 36.89 Radha [facility] Respiratory rate 2023-07-22 04:04:11 18 /min [facility] Oxygen saturation in Arterial blood by Pulse oximetry 2023-07-22 04:04:11 100 /min [facility] Body height 2023-07-22 02:14:00 170.2 cm [facility] Body weight 2023-07-22 02:14:00 79.017 kg [facility] BMI 2023-07-22 02:14:00 27.28 kg/m2 [facility] Systolic blood pressure 2023-07-11 07:56:14 111 mm[Hg] [facility] Diastolic blood pressure 2023-07-11 07:56:14 89 mm[Hg] [facility] Heart rate 2023-07-11 07:56:14 89 /min [facility] Oxygen saturation in Arterial blood by Pulse oximetry 2023-07-11 07:56:14 99 /min [facility] Body temperature 2023-07-11 07:52:00 36.83 Radha [facility] Respiratory rate 2023-07-11 07:52:00 20 /min [facility] Body height 2023-07-11 04:55:00 167.6 cm [facility] Body weight 2023-07-11 04:55:00 79.47 kg [facility] BMI 2023-07-11 04:55:00 28.28 kg/m2 [facility] Systolic blood pressure 2021-10-12 22:00:00 107 mm[Hg] [facility] Diastolic blood pressure 2021-10-12 22:00:00 70 mm[Hg] [facility] Heart rate 2021-10-12 22:00:00 73 /min [facility] Respiratory rate 2021-10-12 22:00:00 16 /min [facility] Oxygen saturation in Arterial blood by Pulse oximetry 2021-10-12 22:00:00 99 /min [facility] Body temperature 2021-10-12 19:24:00 36.67 Radha [facility] Body height 2021-10-12 19:24:00 167.6 cm [facility] Body weight 2021-10-12 19:24:00 67.586 kg [facility] BMI 2021-10-12 19:24:00 24.05 kg/m2 [facility] BP Systolic 2023-08-19 15:21:00 119 mm[Hg] Step [...] XR CHEST 1 VW 2023-07-22 02:45:59 Alexis [facility] POCT TEST 2023-07-22 02:39:00 Viviane Espinoza [facility] TROPONIN I 2023-07-22 02:26:00 Karmen Espinoza [facility] COMP. METABOLIC PANEL ([id number]) 2023-07-22 02:26:00 Karmen Espinoza [facility] CBC WITH DIFF 2023-07-22 02:26:00 Karmen Espinoza [facility] LIPASE 2023-07-11 06:47:00 Megan Boyer [facility] COMP. METABOLIC PANEL ([id number]) 2023-07-11 06:47:00 Megan Boyer [facility] CBC WITH DIFF 2023-07-11 06:47:[address] [facility] POCT TEST 2023-07-11 05:16:00 Megan Boyer [facility] URINALYSIS 2023-07-11 05:15:00 Megan Boyer [facility] [id number] Ultrasound, Retroperitoneal (eg, Renal, Aorta, Nodes), Real Time With Image Documentation; Complete 2023-07-10 00:00:00 Anthony Barrera Renato XR CHEST 1 VW 2021-10-12 20:05:[address] [facility] POCT TEST 2021-10-12 20:03:00 Megan Boyer [facility] LIPASE 2021-10-12 20:01:00 Megan Boeyr [facility] TROPONIN I 2021-10-12 20:01:00 Megan Boyer [facility] COMP. METABOLIC PANEL ([id number]) 2021-10-12 20:01:00 Megan Boyer [facility] CBC WITH DIFF 2021-10-12 20:01:[address] [facility] URINALYSIS 2021-10-12 20:01:00 Megan Boyer [facility] URINE DRUG (IMMUNOASSAY) - COMPREHENSIVE DRUG SCREEN W/O REFLEX 2021-10-12 20:01:00 Megan Boyer [facility] HB ECG ROUTINE & RHYTHM STRIP 2021-10-12 19:54:11 Megan Boyer [facility] CONSENT/REFUSAL FOR DIAGNOSIS AND TREATMENT 2021-10-12 19:25:43 Doctor Unassigned, Esperanza [facility] Encounters Start Date/Time End Date/Time Encounter Type Admission Type Attending [facility] Care Facility Care Department Encounter ID Source 2023-08-19 15:20:37 2023-08-19 15:20:37 Outpatient [facility] [id number] Anthony Gross 2023-08-19 00:00:00 2023-08-19 00:00:[address] [facility] [id number] Anthony Barrera Renato 2023-07-31 11:40:13 2023-07-31 11:40:[address] [facility] [id number] Anthony Barrera Renato 2023-07-31 00:00:00 2023-07-31 00:00:[address] [facility] [id number] Anthony Gross 2023-07-21 21:18:00 2023-07-21 23:05:00 Emergency X ALEXIS, SALMIN ALEXIS, SALMIN [facility] [id number] [facility] 2023-07-21 21:18:00 2023-07-21 23:05:00 Emergency Karmen Espinoza [facility] [id number] [facility] 2023-07-17 13:12:11 2023-07-17 13:12:[address] [facility] [id number] Anthony Gross 2023-07-17 00:00:00 2023-07-17 00:00:[address] [facility] [id number] Anthony Gross 2023-07-10 23:58:00 2023-07-11 02:59:00 Emergency X MEGAN BOYER [facility] [id number] [facility] 2023-07-10 23:58:00 2023-07-11 02:59:00 Emergency Megan Boyer [facility] [id number] [facility] 2023-07-10 11:03:31 2023-07-10 11:03:[address] [facility] [id number] Anthony Barrera Renato 2023-06-25 15:39:49 2023-06-25 15:39:[address] [facility] [id number] Anthony Barrera Renato 2023-06-25 00:00:00 2023-06-25 00:00:00 Outpatient Visit SFA [id number] Anthony Gross 2021-10-12 14:25:00 2021-10-12 17:36:00 Emergency Megan Boyer [facility] [id number] [id number] [facility] 2021-10-12 14:25:00 2021-10-12 17:36:00 Emergency X MEGAN BOYER [facility] ERT [id number] [facility] 2019-02-28 20:09:54 2019-02-28 21:56:00 Emergency X [facility] ERT [id number] [facility] Results Test Description Test Time Test Comments Results Result Co mments Source CULTURE, URINE 2023-08-22 11:50:53 SPECIMEN NUMBER: [id number] CULTURE, URINE SPECIMEN NUMBER: [id number] SOURCE: URINE REPORT STATUS: FINAL FINAL REPORT: 08/22/2023 <10,000 CFU/ML UROGENITAL ANDRE PRESENT NO COMMON PATHOGENS UNLESS OTHERWISE INDICATED, ALL TESTING PERFORMED AT [facility] [address] [place] [address] KITCHEN SUPERVISOR: NIKO MOSES M.D. CLIA NUMBER [id number] [place] [id number] Anthony Barrera [facility] CHEST 1 [id number] 03:51:18ORDERING PHYSICIAN: KARMEN ESPINOZA HISTORY: sob, cp TECHNIQUE: Chest radiograph(s), 1 view. COMPARISON: 10/12/2021 FINDINGS:Lines and tubes: None. Mediastinum: Cardiomediastinal silhouette is within normal limits. Lungs and pleura: No consolidation, pleural effusion, or pneumothorax. Bones: No acuteabnormality.[facility] [id number] 03:15:19* Test Item Value Reference Range Interpretation Comme nts TROPONIN I (test code = 3134939421) 0.002 ng/mL <=0.034 STARR (test code = [...] of biotin. Lab Interpretation (test code = 07725-9) Normal [facility]OLIC PAN[facility] (51292)2023-07-22 03:04:17* Test Item Value Reference Range Interpretation Comme nts NA (test code = 1277076734) 141 mmol/L 135-145 K (test code = 3485770334) 3.6 mmol/L 3.5-5.0 CL (test code = 4205313703) 106 mmol/L 98-108 CO2 TOTAL (test code = 7416167352) 26 mmol/L 23-31 AGAP (test code = 1178505289) 9 2-16 BUN (test code = 7572213681) 9 mg/dL 7-23 GLUCOSE (test code = 6591561849) 76 mg/dL 70-110 CREATININE (test code = 2160-0) 0.56 mg/dL 0.50-1.04 TOTAL BILI (test code = 2254734202) 0.3 mg/dL 0.1-1.1 CALCIUM (test code = 6000154773) 9.2 mg/dL 8.6-10.6 T PROTEIN (test code = 6727103761) 7.5 g/dL 6.3-8.2 ALBUMIN (test code = 7873952680) 4.5 g/dL 3.5-5.0 ALK PHOS (test code = 9959151135) 78 U/L 34-122 ALTv (test code = 1742-6) 28 U/L 5-35 AST(SGOT) (test code = 6255917532) 27 U/L 13-40 eGFR (test code = 93541-8) 130.9 mL/min/1.73m2 CKD-EPI eGFR (20 21). Assuming creatinine has been stable day-to-day for at least three months, the eGFR indicates Category G1 (>= 90 mL/min/1.73 m2) [facility] WITH [id number] 02:52:19* Test Item Value Reference Range Interpretation [...] 32.7 g/dL 31.6-35.1 RDW-SD (test code = 51627-4) 41.5 fL 39.0-49.9 RDW-CV (test code = 788-0) 13.2 % 12.0-15.5 PLT (test code = 777-3) 253 166-358 MPV (test code = 50543-5) 11.3 fL 9.5-12.9 NRBC/100 WBC (test code = 9648886510) 0.0 0.0-10.0 NRBC x10^3 (test code = 0707404454) See_Comment [Automated messa ge] The system which generated this result transmitted reference range: 10*3/?L. The reference range was not used to interpret this result as normal/abnormal. GRAN MAT (NEUT) % (test code = 770-8) 67.9 % IMM GRAN % (test code = 6944038678) 0.40 % LYMPH % (test code = 736-9) 22.3 % MONO % (test code = 5905-5) 7.0 % EOS % (test code = 713-8) 1.8 % BASO % (test code = 706-2) 0.6 % GRAN MAT x10^3(ANC) (test code = 2751839720) 8.76 10*3/uL 1.88-7.09 H IMM GRAN x10^3 (test code = 7460895287) 0.05 10*3/uL 0.00-0.06 LYMPH x10^3 (test code = 731-0) 2.88 10*3/uL 1.32-3.29 MONO x10^3 (test code = 742-7) 0.90 10*3/uL 0.33-0.92 EOS x10^3 (test code = 711-2) 0.23 10*3/uL 0.03-0.39 BASO x10^3 (test code = 704-7) 0.08 10*3/uL 0.01-0.07 H Lab Interpretation (test code = 93635-8) [facility]normal [facility] [id number] 02:39:00* Test Item Value Reference Range Interpretation Comme nts POCT PREG (test code = 1605) Negative On board controls acceptable with C Line (test code = 3574) Yes POCT PREG LOT # (test code = 3575) [id number] POCT PREG TEST DATE ( test code = 3576) [id number] Lab Interpretation (test cod e = 90596-4) Normal [facility]. METABOLIC PANEL (97899)2023-07-11 07:20:36* Test Item Value Reference Range Interpretation Comme nts NA (test code = 8330332550) 139 mmol/L 135-145 K (test code = 4485485237) 3.8 mmol/L 3.5-5.0 CL (test code = 6114907249) 101 mmol/L 98-108 CO2 TOTAL (test code = 4081206438) 30 mmol/L 23-31 AGAP (test code = 5541542658) 8 2-16 BUN (test code = 8539285803) 7 mg/dL 7-23 GLUCOSE (test code = 7525476661) 100 mg/dL 70-110 CREATININE (test code = 2160-0) 0.82 mg/dL 0.50-1.04 TOTAL BILI (test code = 3874767938) 0.3 mg/dL 0.1-1.1 CALCIUM (test code = 3904426517) 9.6 mg/dL 8.6-10.6 T PROTEIN (test code = 3121856190) 7.9 g/dL 6.3-8.2 ALBUMIN (test code = 0184539882) 4.7 g/dL 3.5-5.0 ALK PHOS (test code = 7090872534) 109 U/L 34-122 ALTv (test code = 1742-6) 35 U/L 5-35 AST(SGOT) (test code = 9200981406) 33 U/L 13-40 eGFR (test code = 87953-5) 102.6 mL/min/1.73m2 CKD-EPI eGFR (20 21). Assuming creatinine has been stable day-to-day for at least three months, the eGFR indicates Category G1 (>= 90 mL/min/1.73 m2) [facility] 07:20:15* Test Item Value Reference Range Interpretation Comme nts LIPASE (test code = 9738486463) 68 U/L 0-220 Lab Interpretation (test cod e = 69262-7) Normal [facility] WITH [id number] 07:06:15* Test Item Value Reference Range Interpretation [...] 32.8 g/dL 31.6-35.1 RDW-SD (test code = 09807-3) 41.2 fL 39.0-49.9 RDW-CV (test code = 788-0) 13.3 % 12.0-15.5 PLT (test code = 777-3) 291 166-358 MPV (test code = 74460-4) 11.2 fL 9.5-12.9 NRBC/100 WBC (test code = 6395913714) 0.0 0.0-10.0 NRBC x10^3 (test code = 0694544083) See_Comment [Automated Q-Bota ge] The system which generated this result transmitted reference range: 10*3/?L. The reference range was not used to interpret this result as normal/abnormal. GRAN MAT (NEUT) % (test code = 770-8) 62.8 % IMM GRAN % (test code = 5038535852) 0.50 % LYMPH % (test code = 736-9) 25.6 % MONO % (test code = 5905-5) 8.1 % EOS % (test code = 713-8) 2.4 % BASO % (test code = 706-2) 0.6 % GRAN MAT x10^3(ANC) (test code = 2252149714) 9.19 10*3/uL 1.88-7.09 H IMM GRAN x10^3 (test code = 6148165961) 0.08 10*3/uL 0.00-0.06 H LYMPH x10^3 (test code = 731-0) 3.76 10*3/uL 1.32-3.29 H MONO x10^3 (test code = 742-7) 1.19 10*3/uL 0.33-0.92 H EOS x10^3 (test code = 711-2) 0.35 10*3/uL 0.03-0.39 BASO x10^3 (test code = 704-7) 0.09 10*3/uL 0.01-0.07 H Lab Interpretation (test code = 57095-9) Abnormal [facility] [id number] 05:16:00* Test Item Value Reference Range Interpretation Comme nts POCT PREG (test code = 1605) Negative On board controls acceptable with C Line (test code = 3574) Yes POCT PREG LOT # (test code = 3575) [id number] POCT PREG TEST DATE ( test code = 3576) 06/02/2024 Lab Interpretation (test cod e = 02847-0) Normal [facility], [id number] 00:00:00* Test Item Value Reference Range Interpretation Comme nts CULTURE, URINE (test code = 87379) SPECIMEN NUMBER: [id number] [facility], [id number] 00:00:00* Test Item Value Reference Range Interpretation Comme nts CULTURE, URINE (test code = 93230) SPECIMEN NUMBER: [id number] Anthony HopeLTGUERA, [id number] 00:00:00* Test Item Value Reference Range Interpretation Comme nts CULTURE, URINE (test code = 37817) SPECIMEN NUMBER: [id number] [facility], [id number] 00:00:00* Test Item Value Reference Range Interpretation Comme nts CULTURE, URINE (test code = 43957) SPECIMEN NUMBER: [id number] Anthony Arizmendi [id number] 20:52:10* Test Item Value Reference Range Interpretation Comments TROPONIN I (test code = 4870987633) 0.001 ng/mL See_Comment [Automated message] The system [...] of biotin. Lab Interpretation (test code = 90494-5) Normal [facility] MET[facility]OLIC PANEL (39782)2021-10-12 20:41:25* Test Item Value Reference Range Interpretation Comme nts NA (test code = 1804481505) 140 mmol/L 135-145 K (test code = 9159144291) 3.8 mmol/L 3.5-5 CL (test code = 6326899046) 105 mmol/L 98-108 CO2 TOTAL (test code = 7141890375) 26 mmol/L 23-31 AGAP (test code = 3095767625) 2-16 BUN (test code = 3637731200) 7 mg/dL 7-23 GLUCOSE (test code = 3679435633) 82 mg/dL 70-110 CREATININE (test code = 1447746743) 0.56 mg/dL 0.5-1.04 TOTAL BILI (test code = 9890054224) 0.4 mg/dL 0.1-1.1 CALCIUM (test code = 9487982226) 9.3 mg/dL 8.6-10.6 T PROTEIN (test code = 7910126403) 7.4 g/dL 6.3-8.2 ALBUMIN (test code = 1000859564) 5.0 g/dL 3.5-5 ALK PHOS (test code = 8938885125) 68 U/L 34-122 ALTv (test code = 1742-6) 21 U/L 5-35 AST(SGOT) (test code = 8489748053) 28 U/L 13-40 eGFR (test code = 1580649174) mL/min/1.73m2 STARR (test code = STARR) Association [...] or urine or abnormalities in imaging tests). [facility] 20:40:50* Test Item Value Reference Range Interpretation Comme nts LIPASE (test code = 6457172284) 66 U/L 0-220 Lab Interpretation (test cod e = 55857-7) Normal [facility] WITH [id number] 20:13:27* Test Item Value Reference Range Interpretation [...] 33.9 g/dL 31.6-35.1 RDW-SD (test code = 52521-8) 39.4 fL 39-49.9 RDW-CV (test code = 788-0) 12.9 % 12-15.5 PLT (test code = 777-3) See_Comment [Automated messa ge] The system which generated this result transmitted reference range: 166 - 358 10*3/?L. The reference range was not used to interpret this result as normal/abnormal. MPV (test code = 64257-0) 11.0 fL 9.5-12.9 NRBC/100 WBC (test code = 7785209161) See_Comment [Automated [employer] ssage] The system which generated this result transmitted reference range: 0.0 - 10.0 /100 WBCs. The reference range was not used to interpret this result as normal/abnormal. NRBC x10^3 (test code = 0909692364) See_Comment [Automated messa ge] The system which generated this result transmitted reference range: 10*3/?L. The reference range was not used to interpret this result as normal/abnormal. GRAN MAT (NEUT) % (test code = 770-8) 63.8 % IMM GRAN % (test code = 4890902154) 0.30 % LYMPH % (test code = 736-9) 24.2 % MONO % (test code = 5905-5) 8.9 % EOS % (test code = 713-8) 1.7 % BASO % (test code = 706-2) 1.1 % GRAN MAT x10^3(ANC) (test code = 1972834724) 5.69 10*3/uL 1.88-7.09 IMM GRAN x10^3 (test code = 0292804079) 0.03 10*3/uL 0-0.06 LYMPH x10^3 (test code = 731-0) 2.16 10*3/uL 1.32-3.29 MONO x10^3 (test code = 742-7) 0.79 10*3/uL 0.33-0.92 EOS x10^3 (test code = 711-2) 0.15 10*3/uL 0.03-0.39 BASO x10^3 (test code = 704-7) 0.10 10*3/uL 0.01-0.07 H Lab Interpretation (test code = 47816-5) Abnormal [facility] [id number] 20:03:00* Test Item Value Reference Range Interpretation Comme nts POCT PREG (test code = 1605) negative On board controls acceptable with C Line (test code = 3574) Present POCT PREG LOT # (test code = 3575) [id number] POCT PREG TEST DATE ( test code = 3576) 01-24-2023 Lab Interpretation (test cod e = 09162-4) Normal [facility] Notes Date/Time Note Provider Source Anthony Stauffer [facility]2024-06-05 00:00:00 Anthony Stauffer [facility]2024-05-26 23:05:04 Pt given printed and verbal discharge [...] gait, in no apparent distress, Lita Dumont [id number] 21:13:20 CC: Pt reports yesterday or the [...] difficulty, amb with steady gait Flaca Sosa [facility] HospitalRfxkfc7695-17-63 00:00:00 Anthony Stauffer [facility]2024-05-16 02:57:43 Pt given printed and verbal discharge [...] in no apparent distress, . Jarett Gómez [facility] [id number] 01:32:09 07/11/23 0015 07/11/23 0019 07/11/23 0022 Orthostatic Vitals BP (!) 125/93 119/85 122/89 BP Location Left arm Left arm Left arm Position Lying Sitting Standing Pulse 91 94 89 Flacaaicha MARTIN - [id number] 23:48:23 Patient arrived ambulatory to ED c/o dizziness that started tonight. Patient was in [place] today for an Ultrasound of the kidneys but haven't got the results back yet. 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 Patient states getting blurry vision and patient feeling like they are spinning. Judith Medina [facility] - [id number] 00:00:00 Anthony Stauffer [facility]"
--- NOTE | 2024-07-19 19:43 | ER ---
Nurse's Notes [facility] Name: Jessica North Age: 24 yrs Sex: Female : 2000 Arrival Date: 07/19/2024 Time: 18:41 Bed IW3 Private MD: Diagnosis: Palpitations Presentation: 07/19 18:55 Chief complaint: Patient states: last night had palpitations after "drinking tea from a me1 cup that she later discovered had some mold in it" and then midsternal cp that started this morning and got worse about 5 pm then resolved. Pain is 0/10 now but was 7/10 at worst, "squeezing" w/associated sob and wheezing. Coronavirus screen: Vaccine status:. Ebola Screen: No symptoms or risks identified at this time. Initial Sepsis Screen: Does the patient meet any 2 criteria? No. Patient's initial sepsis screen is negative. Does the patient have a suspected source of infection? No. Patient's initial sepsis screen is negative. Risk Assessment: Do you want to hurt yourself or someone else? Patient reports no desire to harm self or others. Onset of symptoms was July 18, 2024. 18:55 [place] Of [place] [facility] [place] Acuity: DANYEL 3 me1 Triage Assessment: 18:57 General: Appears in no apparent distress. Behavior is calm, cooperative, appropriate me1 for age. Pain: Complains of pain in chest Pain does not radiate. Pain currently is 0 out of 10 on a pain scale. at worst was 8 out of 10 on a pain scale. Quality of pain is described as squeezing, Pain began suddenly, Is intermittent. EENT: No signs and/or symptoms were reported regarding the EENT system. Neuro: Level of Consciousness is awake, alert, obeys commands, Oriented to person, place, time, situation, Appropriate for age. Cardiovascular: Patient's skin is warm and dry. Cardiovascular: Reports chest pain, palpitations, shortness of breath. Respiratory: Reports shortness of breath Airway is patent Respiratory effort is even, unlabored, Respiratory pattern is regular, symmetrical. GI: No signs and/or symptoms were reported involving the gastrointestinal system. : No signs and/or symptoms were reported regarding the genitourinary system. Derm: Skin is intact, is healthy with good turgor, Skin is pink, warm \\T\\ dry. Musculoskeletal: No signs and/or symptoms reported regarding the musculoskeletal system. 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 - Infectious Disease History:: Denies. - Social history:: Smoking status: Patient denies any tobacco usage or history of. Screenin:51 [facility] ED Fall Risk Assessment (Adult) History of falling in the last 3 months, me1 including since admission No falls in past 3 months (0 pts) Confusion or Disorientation No (0 pts) Intoxicated or Sedated No (0 pts) Impaired Gait No (0 pts) Mobility Assist Device Used No (0 pt) Altered Elimination No (0 pt) Score/Fall Risk Level 0 - 2 = Low Risk Maintained a safe environment, Provided non-skid footwear, Hourly rounding (assess needs \\T\\ fall precautionary measures) done. Abuse screen: Denies threats or abuse. Nutritional screening: No deficits noted. Tuberculosis screening: No symptoms or risk factors identified. Assessment: 19:51 General: See triage assessment. me1 Vital Signs: 18:55 BP 119 / 88; Pulse 86; Resp 17; Temp 98.2; Pulse Ox 97% ; Weight 78.02 kg; Height 5 ft. me1 7 in. ; Pain 0/10; 18:55 Body Mass Index 26.94 (78.02 kg, 170.18 cm) me1 18:55 Pain Scale: Adult wv1 ED Course: 18:44 Patient arrived in ED. cj3 18:57 Triage completed. me1 18:57 Arm band placed on Patient placed in waiting room. me1 19:05 EKG done, by ED staff. me1 19:07 Miles Cancino MD is Attending Physician. sp4 19:41 Gilmar Real MD is Referral Physician. sp4 19:51 Patient has correct armband on for positive identification. Provided Education on: POC. me1 Verbalized understanding.. 19:51 No provider procedures requiring assistance completed. Patient did not have IV access me1 during this emergency room visit. Administered Medications: No medications were administered Medication: 19:51 VIS not applicable for this client. me1 Outcome: 19:43 Discharge ordered by . sp4 19:53 Discharged to home ambulatory, with friend, kyrie 19:53 Condition: stable 19:53 Discharge instructions given to patient, Instructed on discharge instructions, follow up and referral plans. Demonstrated understanding of instructions, follow-up care, :53 Patient left the ED. me1 Signatures: Miles Cancino MD MD sp4 Kourtney Berg RN RN me1 Debbie Rizo 3
--- NOTE | 2024-07-19 19:43 | EDPHYS ---
Physician Documentation [facility] Name: Jessica North Age: 24 yrs Sex: Female : 2000 Arrival Date: 07/19/2024 Time: 18:41 Bed IW3 Private MD: ED Physician Miles Cancino HPI: 07/19 19:07 This 24 yrs old Other Race Female presents to ER via Ambulatory with complaints of sp4 Palpitations. 07/20 19:52 24-year-old female presents with complaint of palpitations.. 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 - Infectious Disease History:: Denies. - Social history:: Smoking status: Patient denies any tobacco usage or history of. Vital Signs: 18:55 BP 119 / 88; Pulse 86; Resp 17; Temp 98.2; Pulse Ox 97% ; Weight 78.02 kg; Height 5 ft. me1 7 in. ; Pain 0/10; 18:55 Body Mass Index 26.94 (78.02 kg, 170.18 cm) me1 18:55 Pain Scale: Adult me1 MDM: 19:07 Medical Screening Exam initiated sp4 07/19 19:07 Order name: EKG - Nurse/Tech; Complete Time: 19:52 sp4 Administered Medications: No medications were administered Disposition Summary: 07/19/24 19:43 Discharge Ordered Problem: new sp4 Symptoms: have improved sp4 Condition: Stable sp4 Diagnosis - Palpitations sp4 Followup: sp4 - With: Gilmar Real MD - When: 7 - 10 days - Reason: Recheck today's complaints Discharge Instructions: - Discharge Summary Sheet sp4 - Palpitations sp4 Forms: - Patient Portal Instructions sp4 Addendum: 07/20/2024 19:53 Addendum: Physical exam unremarkable, EKG today is normal. Patient stable for s p4 discharge. No further workup indicated.. 19:54 Addendum: EKG at 1904 normal sinus rhythm rate 95 overall normal EKG, normal intervals, s p4 no ST elevation or depression, normal axis, no ectopy. . 19:58 Addendum: ROS positive for palpitations otherwise negative. Examination today is s p4 unremarkable. Patient has normal EKG. Stable for discharge home.. Signatures: Dispatcher [employer] Miles Louise MD MD sp4 Kourtney Berg, RN RN me1
[2024-07-19 19:57] VITALS: BP 119/88; TEMP 98.2; O2SAT 97
--- NOTE | 2024-07-21 12:21 | EKG ---
Test Date: 2024-07-19 Test Time: 19:04:07 Violin Teacher: MEASUREMENT RESULTS: Intervals: Rate: 95 IN: 150 QRSD: 86 QT: 362 QTc: 454 [place]: P: 49 IN: 150 QRS: 62 T: 27 INTERPRETIVE STATEMENTS: Normal sinus rhythm Normal ECG Compared to ECG 11/06/2023 00:46:33 Myocardial infarct finding no longer present Electronically Signed On 07-21-24 12:18:14 CDT by Thomas Dawn
== END 2024-07-19 19:53 | disposition home or self-care (01) ==
LOC: ER 18:41
DX: R00.2 Palpitations (principal)
CPT/HCPCS: 93005; 99283